=== PATIENT | female | born 1990 | race Caucasian/White ===

== ENCOUNTER 2016-12-24 09:34 | Emergency (ER) | payer OTHER ==
[2016-12-24 09:56] VITALS: BP 114/72
[2016-12-24] MEDS ORDERED: IBUPROFEN 600 MG TAB PO STA (10:22)
--- NOTE | 2016-12-24 11:14 | ED ---
General Adult HPI - General Chief complaint: ENT Stated complaint: ENT Time Seen by Provider: 12/24/16 10:08 Source: patient, RN notes reviewed Mode of arrival: ambulatory Limitations: no limitations - History of Present Illness Initial comments: Patient 26-year-old female who presents emergency room today with a chief complaint of sore throat 2 weeks. Patient admits to increased pain in the left side. States hurts when she swallows. Patient denies any other complaints or associated symptoms. Patient denies any recent fever, chills, shortness of breath, chest pain, back pain, abdominal pain, nausea or vomiting, numbness or tingling, dysuria or hematuria, constipation or diarrhea, headaches or visual changes, or any other complaints. - Related Data Previous Rx's Medication Instructions Recorded Amoxicillin 500 mg PO Q8H 10 Days 12/24/16 predniSONE 40 mg PO DAILY 3 Days 12/24/16 Allergies Allergy/AdvReac Type Severity Reaction Status Date / Time Sulfa (Sulfonamide Allergy Anaphylaxis Verified 12/24/16 10:13 Antibiotics) Review of Systems ROS Statement: Those systems with pertinent positive or pertinent negative responses have been documented in the HPI. ROS Other: All systems not noted in ROS Statement are negative. Past Medical History Past Medical History: Osteoarthritis (OA), Seizure Disorder, Skin Disorder Additional Past Medical History / Comment(s): States hx. heart murmur. She also states that she had a head injury at age 11. States she had a staph infection 5 months ago in her R armpit. She states she has had 4 seizures since age 15 -never evaluated. Has intermittent chest pain @ times but has not been evaluated. History of Any Multi-Drug Resistant Organisms: None Reported Past Surgical History: No Surgical Hx Reported Additional Past Surgical History / Comment(s): She has 4 children by natural childbirth. Past Anesthesia/Blood Transfusion Reactions: No Reported Reaction Past Psychological History: No Psychological Hx Reported Smoking Status: Current every day smoker Past Alcohol Use History: None Reported Past Drug Use History: None Reported - Past Family History Mother Family Medical History: No Reported History Additional Family Medical History / Comment(s): Mat. grandfather & 2 cousins dx. with hemophilia. General Exam - General Exam Comments Initial Comments: General: The patient is awake and alert, in no distress, and does not appear acutely ill. Eye: Pupils are equal, round and reactive to light, extra-ocular movements are intact. No nystagmus. There is normal conjunctiva bilaterally. No signs of icterus. Ears, nose, mouth and throat: There are moist mucous membranes and no oral lesions. Uvula midline. Mild redness the posterior pharynx a positive exudate left. Left hand decreased for landmarks consistent with otitis media. Neck: The neck is supple, there is no tenderness or JVD. Cardiovascular: There is a regular rate and rhythm. No murmur, rub or gallop is appreciated. Respiratory: Lungs are clear to auscultation, respirations are non-labored, breath sounds are equal. No wheezes, stridor, rales, or rhonchi. Gastrointestinal: Soft, non-distended, non-tender abdomen without masses or organomegaly noted. There is no rebound or guarding present. No CVA tenderness. Bowel sounds are unremarkable. Musculoskeletal: Normal ROM, no tenderness. Strength 5/5. Sensation intact. Pulses equal bilaterally 2+. Neurological: A&O x 3. CN II-XII intact, There are no obvious motor or sensory deficits. Coordination appears grossly intact. Speech is normal. Skin: Skin is warm and dry and no rashes or lesions are noted. Psychiatric: Cooperative, appropriate mood & affect, normal judgment. Limitations: no limitations Course Vital Signs 12/24/16 09:53 Temperature 98.6 F Pulse Rate 82 Respiratory 20 Rate Blood Pressure 114/72 O2 Sat by Pulse 98 Oximetry Medical Decision Making - Medical Decision Making A strep test negative. Does have evidence for acute otitis media. Will be started on antibiotics of amoxicillin. Patient also given steroid for the next 3 days for symptoms. Advised to follow-up or return here to emergency room if any symptoms increase or worsen or for any other concerns. - Lab Data Lab Results 12/24/16 Range/Units 10:04 Group A Strep Rapid Negative (Negative) Disposition Clinical Impression: Acute otitis media Disposition: HOME SELF-CARE Condition: Good Instructions: Otitis Media (ED) Additional Instructions: Please use medication as discussed. Please follow-up with family doctor in the next 2 days of symptoms have not improved. Please return to emergency room if the symptoms increase or worsen or for any other concerns. Prescriptions: Amoxicillin 500 mg PO Q8H 10 Days predniSONE 40 mg PO DAILY 3 Days Referrals: None,Stated [Primary Care Provider] - 1-2 days Stephanie Chase MD [STAFF PHYSICIAN] - 1-2 days Time of Disposition: 11:11
[2016-12-24 11:19] VITALS: PULSE 78; RESP 18; TEMP 98.4
== END 2016-12-24 11:19 | disposition home or self-care (01) ==
LOC: EC 09:34
DX: H66.92 Otitis media, unspecified, left ear (principal); F17.200 Nicotine dependence, unspecified, uncomplicated; Z88.2 Allergy status to sulfonamides
CPT/HCPCS: 87081; 87430; 99283

== ENCOUNTER → 2017-07-07 | Outpatient (CLI) | payer OTHER ==
[2017-07-07 16:44] LABS: Basophils # (A) 0.1 k/uL (0-0.2); Basophils % (A) 1 %; CH 31.3; CHCM 32.3; Eosinophils # (A) 0.3 k/uL (0-0.7); Eosinophils % (A) 3 %; HCT 45.7 % (34.0-46.0); HDW 2.09; HGB 14.9 gm/dL (11.4-16.0); Luc # (Auto) 0.18; Luc % (Auto) 2; Lymphocytes # (A) 2.1 k/uL (1.0-4.8); Lymphocytes % (A) 23 %; MCH 31.7 pg (25.0-35.0); MCHC 32.5 g/dL (31.0-37.0); MCV 97.4 fL (80.0-100.0); Mean Platelet Volume 6.9; Monocytes # (A) 0.6 k/uL (0-1.0); Monocytes % (A) 7 %; Neutrophils # (A) 5.7 k/uL (1.3-7.7); Neutrophils % (A) 64 %; RBC 4.69 m/uL (3.80-5.40); RDW 12.6 % (11.5-15.5); WBC 8.9 k/uL (3.8-10.6); WBC (Perox) 9.47
== END | disposition home or self-care (01) ==
LOC: LABPAT 16:12
PROVIDERS: ATTEND Obstetrics & Gynecology
DX: Z01.818 Encounter for other preprocedural examination (principal)
CPT/HCPCS: 36415; 85025

== ENCOUNTER 2018-01-13 00:58 | Emergency (ER) | payer OTHER ==
[2018-01-13 01:16] VITALS: RESP 16
[2018-01-13] MEDS ORDERED: ONDANSETRON ODT 4 MG TAB PO STA (01:58)
--- NOTE | 2018-01-13 02:18 | ED ---
Head Injury HPI - General Chief complaint: Head Injury Stated complaint: Head Injury, [facility] Time Seen by Provider: 01/13/18 01:41 Source: patient, RN notes reviewed Mode of arrival: ambulatory Limitations: no limitations - History of Present Illness Initial comments: 27-year-old female presented department for head injury. Patient states that she was at work and states that she bent down to grab something out of the freezer and move it up to the other one and states that she hit her head. She states she struck the right side of her head she felt slightly dazed and she just feels nauseated this time. Patient does note that she's become very anxious which is causing tingling all over her body. Patient states that she did not lose consciousness. Denies any chance . Denies neck pain, focal weakness, blurred vision. - Related Data Home Medications Medication Instructions Recorded Confirmed Otc For Upset Stomach 1 tab PO DAILY PRN 07/14/17 Previous Rx's Medication Instructions Recorded Acetaminophen-Codeine 300-30mg 1 - 2 tab PO Q4H PRN #30 tablet 07/14/17 [Tylenol #3] Ibuprofen [Motrin] 600 mg PO Q6HR PRN #40 tab 07/14/17 Amoxicillin/Potassium Clav 1 tab PO Q12HR #20 tab 01/13/18 [Augmentin 875-125 Tablet] Allergies/Adverse reactions: Allergies Allergy/AdvReac Type Severity Reaction Status Date / Time Sulfa (Sulfonamide Allergy Anaphylaxis Verified 01/13/18 01:15 Antibiotics) Review of Systems ROS Statement: Those systems with pertinent positive or pertinent negative responses have been documented in the HPI. ROS Other: All systems not noted in ROS Statement are negative. Past Medical History Past Medical History: Osteoarthritis (OA), Seizure Disorder Additional Past Medical History / Comment(s): States hx. heart murmur, head injury at age 11. She states she has had 4 seizures since age 15 -never evaluated. Has intermittent chest pain @ times but has not been evaluated denies sx currently, varicose veins History of Any Multi-Drug Resistant Organisms: MRSA Date of last positivie culture/infection: 2003 MDRO Source:: left breast Past Surgical History: Cholecystectomy Additional Past Surgical History / Comment(s): She has 4 children by natural childbirth. Past Anesthesia/Blood Transfusion Reactions: No Reported Reaction Past Psychological History: Anxiety Smoking Status: Current every day smoker Past Alcohol Use History: None Reported Past Drug Use History: None Reported - Past Family History Mother Family Medical History: No Reported History Additional Family Medical History / Comment(s): Mat. grandfather & 2 cousins dx. with hemophilia. General Exam Limitations: no limitations General appearance: alert, in no apparent distress Head exam: Present: atraumatic, normocephalic, normal inspection Eye exam: Present: normal appearance, PERRL, EOMI. Absent: scleral icterus, conjunctival injection, periorbital swelling ENT exam: Present: normal exam, normal oropharynx, mucous membranes moist, TM's normal bilaterally, normal external ear exam Neck exam: Present: normal inspection, full ROM. Absent: tenderness, meningismus, lymphadenopathy Respiratory exam: Present: normal lung sounds bilaterally. Absent: respiratory distress, wheezes, rales, rhonchi, stridor Cardiovascular Exam: Present: regular rate, normal rhythm, normal heart sounds. Absent: systolic murmur, diastolic murmur, rubs, gallop, clicks GI/Abdominal exam: Present: soft, normal bowel sounds. Absent: distended, tenderness, guarding, rebound, rigid Extremities exam: Present: normal inspection, full ROM, normal capillary refill. Absent: tenderness, pedal edema, joint swelling, calf tenderness Neurological exam: Present: alert, oriented X3, CN II-XII intact, reflexes normal, other (Xficie-ke-dmyt intact bilaterally without overshooting). Absent : motor sensory deficit Skin exam: Present: warm, dry, intact, normal color. Absent: rash Course Vital Signs 01/13/18 01:11 Temperature 99 F Pulse Rate 90 Respiratory 16 Rate Blood Pressure 137/78 O2 Sat by Pulse 100 Oximetry Medical Decision Making - Medical Decision Making 19-year-old female presented from for head injury. CT of the brain does not show any intracranial hemorrhage, mass effect or any lesions. There is some degree of mastoiditis. Patient does complain of mild left mastoid pain. She' ll be placed on a course antibiotics and follow-up with ENT and Workmen's Comp. Return parameters were discussed. Disposition Clinical Impression: Head injury, Mastoiditis Disposition: HOME SELF-CARE Condition: Stable Instructions: Concussion (ED) Additional Instructions: Please return to the Emergency Department if symptoms worsen or any other concerns. Prescriptions: Amoxicillin/Potassium Clav [Augmentin 875-125 Tablet] 1 tab PO Q12HR #20 tab Referrals: None,Stated [Primary Care Provider] - 1-2 days Wilberto Patel DO [Doctor of Osteopathic Medicine] - 1-2 days Time of Disposition: 02:36
--- NOTE | 2018-01-13 02:27 | CT ---
EXAMINATION TYPE: CT brain wo con DATE OF EXAM: 01/13/2018 COMPARISON: NONE HISTORY: Right sided head injury headache CT DLP: 1126.50 mGycm. Automated Exposure Control for Dose Reduction was Utilized. TECHNIQUE: CT scan of the head is performed without contrast. FINDINGS: Ventricles and sulci appear normal. There is no mass effect nor midline shift. There is no sign of intracranial hemorrhage. The calvarium appears normal. CONCLUSION: Negative CT scan of the brain. Incomplete pneumatization of the mastoid sinuses consistent with some degree of mastoiditis.
[2018-01-13 02:49] VITALS: BP 128/75; PULSE 93; TEMP 97.5
== END 2018-01-13 02:50 | disposition home or self-care (01) ==
LOC: EC 00:58
DX: S09.90XA Unspecified injury of head, initial encounter (principal); H70.92 Unspecified mastoiditis, left ear; F17.200 Nicotine dependence, unspecified, uncomplicated; Z88.2 Allergy status to sulfonamides; Z86.14 Personal history of Methicillin resistant Staphylococcus aureus infection; Z02.9 Encounter for administrative examinations, unspecified; W22.09XA Striking against other stationary object, initial encounter; Y93.89 Activity, other specified; Y92.69 Other specified industrial and construction area as the place of occurrence of the external cause
CPT/HCPCS: 70450; 99283

== ENCOUNTER → 2018-01-14 | Outpatient (CLI) | payer OTHER ==
--- NOTE | 2018-01-14 15:01 | XR ---
EXAMINATION TYPE: XR cervical spine comp DATE OF EXAM: 01/14/2018 COMPARISON: NONE HISTORY: Fall hit head TECHNIQUE: Five-view cervical spine FINDINGS: Prevertebral space is normal. Disc heights are preserved. Vertebral body heights are preser adis. Alignment is normal. Posterior spinal lamellar line is intact. Foramen are patent. IMPRESSION: 1. Normal cervical spine.
== END | disposition home or self-care (01) ==
LOC: RADXRMAIN 14:28
PROVIDERS: ATTEND Emergency Medicine
DX: S13.4XXA Sprain of ligaments of cervical spine, initial encounter (principal)
CPT/HCPCS: 72050

== ENCOUNTER → 2018-01-19 | Outpatient (CLI) | payer OTHER ==
--- NOTE | 2018-01-19 16:48 | CT ---
EXAMINATION TYPE: CT brain cspine wo con DATE OF EXAM: 01/19/2018 COMPARISON: CT brain January 13, 2018 HISTORY: New onset left-sided Headache and neck pain after injury. CT DLP: 1006 mGycm. Automated Exposure Control for Dose Reduction was Utilized. TECHNIQUE: CT scan of the head and cervical spine are performed without contrast. FINDINGS: There is no acute intracranial hemorrhage, mass effect, or midline shift identified. The ventricles and sulci are within normal limits in size. Davis-white matter differentiation is maintain ed. There is persistent moderate to severe mucosal thickening in the right frontal sinus extending in to anterior ethmoid sinus. The calvarium is intact. Cervical spine is visualized in its entirety from C1 through upper thoracic levels and demonstrates r eversal of normal cervical curvature without evidence of acute fracture or dislocation. Prevertebral soft tissue appears within normal limits. The C1-C2 articulation is within normal limits on the cor onal images. Vertebral body heights and disc space heights are maintained. Spinal canal is preserved. Review of axial images shows no suspicious abnormality. Thyroid gland is felt within normal limits. Lung apices are clear. IMPRESSION: 1. There is no acute fracture or dislocation evident in the cervical spine. 2. No acute intracranial hemorrhage, mass effect, or midline shift is seen.
--- NOTE | 2018-01-19 16:49 | XR ---
EXAMINATION TYPE: XR thoracic spine complete DATE OF EXAM: 01/19/2018 CLINICAL HISTORY: Pain after injury. TECHNIQUE: Frontal, lateral, and swimmer's view of thoracic spine are obtained. COMPARISON: None. FINDINGS: Thoracic spine show slightly straightened alignment without evidence of acute fracture or d islocation. Vertebral body heights and disc space heights are preserved. Visualized ribs are unremar kable bilaterally. Cholecystectomy clips are noted. IMPRESSION: No acute fracture or dislocation is seen in the thoracic spine.
== END | disposition home or self-care (01) ==
LOC: RADCTMAIN 16:13
PROVIDERS: ATTEND Emergency Medicine
DX: M54.6 Pain in thoracic spine (principal); S13.4XXD Sprain of ligaments of cervical spine, subsequent encounter; S00.83XD Contusion of other part of head, subsequent encounter; F07.81 Postconcussional syndrome
CPT/HCPCS: 70450; 72072; 72125

== ENCOUNTER 2018-05-02 00:04 | Emergency (ER) | payer OTHER ==
--- NOTE | 2018-05-02 03:00 | CT ---
EXAMINATION TYPE: CT sinus wo con DATE OF EXAM: 05/02/2018 COMPARISON: None HISTORY: pt c/o bilateral ear and jaw pain for a few months CT DLP: 487.30 mGycm. Automated Exposure Control for Dose Reduction was Utilized. TECHNIQUE: CT scan of the sinuses is performed without contrast, axial images are obtained, coronal r eformatted images are also reviewed. FINDINGS: There is bilateral patency of the ostiomeatal complex. There is fairly normal development a nd aeration of the paranasal sinuses. I see no bony destructive process. Orbital margins are intact. Maxilla appears intact. The temporal bone show incomplete pneumatization. There is normal aeration of the epitympanic recess bilaterally. Orbital margins are intact. Maxilla is intact. IMPRESSION: Negative CT scan of the paranasal sinuses. Normal temporomandibular joints.
[2018-05-02] MEDS ORDERED: IBUPROFEN 600 MG TAB PO STA (03:35)
--- NOTE | 2018-05-02 03:39 | ED ---
ENT HPI - General Chief complaint: ENT Stated complaint: Ear Pain/Headache Time Seen by Provider: 05/02/18 01:15 Source: patient Mode of arrival: ambulatory Limitations: no limitations - History of Present Illness Initial comments: 28-year-old female patient presents to emergency department today for evaluation of bilateral jaw and ear pain. Patient states his been going on for the last couple of months over the pain now radiates into her face. Denies any drainage from the ears. Denies any recent swelling. Patient denies any fevers or chills. Denies any nasal congestion or drainage. She denies any blurred or double vision. Denies any headache. Denies any dental caries or dental pain. Denies any upper respiratory symptoms. Denies any chance of . They set she believes she has had frequent ear infections however has never been to the doctor to get it evaluated. Did have ear infections as a child. - Related Data Home Medications Medication Instructions Recorded Confirmed Otc For Upset Stomach 1 tab PO DAILY PRN 07/14/17 Previous Rx's Medication Instructions Recorded Acetaminophen-Codeine 300-30mg 1 - 2 tab PO Q4H PRN #30 tablet 07/14/17 [Tylenol #3] Ibuprofen [Motrin] 600 mg PO Q6HR PRN #40 tab 07/14/17 Amoxicillin/Potassium Clav 1 tab PO Q12HR #20 tab 01/13/18 [Augmentin 875-125 Tablet] Ibuprofen [Motrin] 600 mg PO Q8HR PRN #30 tab 05/02/18 Allergies Allergy/AdvReac Type Severity Reaction Status Date / Time Sulfa (Sulfonamide Allergy Anaphylaxis Verified 05/02/18 00:42 Antibiotics) Review of Systems ROS Statement: Those systems with pertinent positive or pertinent negative responses have been documented in the HPI. ROS Other: All systems not noted in ROS Statement are negative. Past Medical History Past Medical History: Osteoarthritis (OA), Seizure Disorder Additional Past Medical History / Comment(s): States hx. heart murmur, head injury at age 11. She states she has had 4 seizures since age 15 -never evaluated. Has intermittent chest pain @ times but has not been evaluated denies sx currently, varicose veins History of Any Multi-Drug Resistant Organisms: MRSA Date of last positivie culture/infection: 2003 MDRO Source:: left breast Past Surgical History: Cholecystectomy, Tubal Ligation Additional Past Surgical History / Comment(s): She has 4 children by natural childbirth. Past Anesthesia/Blood Transfusion Reactions: No Reported Reaction Past Psychological History: Anxiety Smoking Status: Current every day smoker Past Alcohol Use History: None Reported Past Drug Use History: None Reported - Past Family History Mother Family Medical History: No Reported History Additional Family Medical History / Comment(s): Mat. grandfather & 2 cousins dx. with hemophilia. General Exam Limitations: no limitations General appearance: alert, in no apparent distress, other (So well-developed, well-nourished adult female patient in no acute distress. Vital signs upon presentation are temperature 98.6F, pulse 76, respirations 18, blood pressure 134/83, pulse ox 100% on room air.) Eye exam: Present: normal appearance, PERRL, EOMI. Absent: scleral icterus, conjunctival injection, periorbital swelling ENT exam: Present: normal exam, normal oropharynx, mucous membranes moist, TM's normal bilaterally, normal external ear exam, other (Mastoid tenderness) Neck exam: Present: normal inspection. Absent: tenderness, meningismus, lymphadenopathy Respiratory exam: Present: normal lung sounds bilaterally. Absent: respiratory distress, wheezes, rales, rhonchi, stridor Cardiovascular Exam: Present: regular rate, normal rhythm, normal heart sounds. Absent: systolic murmur, diastolic murmur, rubs, gallop, clicks GI/Abdominal exam: Present: soft, normal bowel sounds. Absent: distended, tenderness, guarding, rebound, rigid Neurological exam: Present: alert, oriented X3, CN II-XII intact Psychiatric exam: Present: normal affect, normal mood Skin exam: Present: warm, dry, intact, normal color. Absent: rash Course Vital Signs 05/02/18 05/02/18 00:35 03:50 Temperature 98.6 F 98.2 F Pulse Rate 76 78 Respiratory 18 20 Rate Blood Pressure 134/83 135/78 O2 Sat by Pulse 100 98 Oximetry Medical Decision Making - Medical Decision Making 28-year-old female patient presented to the emergency department today for evaluation of bilateral jaw and ear pain. Physical examination did reveal mastoid tenderness. Tympanic membranes appear normal. Patient is afebrile. Computed tomography scan of the sinuses and mastoids showed no acute processes. Patient is given ibuprofen. She was informed of all results. She is instructed to follow-up with her primary care physician for possible referral to oral surgery or ENT. Return parameters discussed in detail. She verbalizes understanding and agrees this plan. - Radiology Data Radiology results: report reviewed Computed tomography scan of the sinuses performed without contrast. Report was reviewed in its entirety. Impression by Dr. Ortiz shows negative computed tomography scan of the paranasal sinuses. Normal temporomandibular joints. Did discuss findings with Dr. Ortiz, he states there is no evidence of mastoiditis. Disposition Clinical Impression: Jaw pain Disposition: HOME SELF-CARE Condition: Good Instructions: Temporomandibular Disorder (ED) Additional Instructions: Obtain a mouth guard from the store and use this while sleeping. Follow-up with your primary care physician for further evaluation. Return to return here immediately for any new, worsening, or concerning symptoms. Prescriptions: Ibuprofen [Motrin] 600 mg PO Q8HR PRN #30 tab PRN Reason: Pain Is patient prescribed a controlled substance at d/c from ED?: No Referrals: None,Stated [Primary Care Provider] - 1-2 days Time of Disposition: 03:39
[2018-05-02 03:51] VITALS: BP 135/78; PULSE 78; RESP 20; TEMP 98.2
== END 2018-05-02 03:51 | disposition home or self-care (01) ==
LOC: EC 00:04
DX: R68.84 Jaw pain (principal); H92.03 Otalgia, bilateral; F17.200 Nicotine dependence, unspecified, uncomplicated; Z86.14 Personal history of Methicillin resistant Staphylococcus aureus infection; Z88.2 Allergy status to sulfonamides
CPT/HCPCS: 70486; 99283

== ENCOUNTER → 2018-05-14 | Outpatient (CLI) | payer OTHER ==
--- NOTE | 2018-05-16 10:45 | USB ---
Reason for exam: clinical finding. History: Family history of breast cancer in grandmother and breast cancer in aunt. Took hormonal contraceptives for 9 years beginning at age 13. Physical Findings: Nurse did not find any significant physical abnormalities on exam. US Breast BILAT Bilateral complete breast ultrasound includes all four quadrants, the retroareolar region and axilla. Finding demonstrates no cystic or solid lesion seen in either breast. These results were verbally communicated with the patient and result sheet given to the patient on 05/14/18. ASSESSMENT: Negative, BI-RAD 1 RECOMMENDATION: Clinical management.
== END | disposition home or self-care (01) ==
LOC: RADUSWWP 14:17
PROVIDERS: ATTEND Obstetrics & Gynecology
DX: N64.4 Mastodynia (principal); N64.52 Nipple discharge

== ENCOUNTER 2018-07-23 02:10 | Emergency (ER) | payer OTHER ==
[2018-07-23 02:15] VITALS: TEMP 98.4
[2018-07-23] MEDS ORDERED: SODIUM CHLORIDE 0.9% 1,000 ML IV STA (02:49)
[2018-07-23 03:33] LABS: Basophils # (A) 0.1 k/uL (0-0.2); Basophils % (A) 1 %; Eosinophils # (A) 0.2 k/uL (0-0.7); Eosinophils % (A) 3 %; HCT 45.1 % (34.0-46.0); HGB 15.2 gm/dL (11.4-16.0); Lymphocytes # (A) 1.1 k/uL (1.0-4.8); Lymphocytes % (A) 13 %; MCH 31.3 pg (25.0-35.0); MCHC 33.6 g/dL (31.0-37.0); MCV 93.3 fL (80.0-100.0); Mean Platelet Volume 6.7; Monocytes # (A) 0.5 k/uL (0-1.0); Monocytes % (A) 6 %; Neutrophils # (A) 5.9 k/uL (1.3-7.7); Neutrophils % (A) 75 %; Platelet Count 198 k/uL (150-450); RBC 4.84 m/uL (3.80-5.40); RDW 12.4 % (11.5-15.5); WBC 7.8 k/uL (3.8-10.6)
[2018-07-23 03:42] LABS: Appearance,Urine Clear (Clear); Bacteria,Urine Rare /hpf; Bilirubin,Urine Negative (Negative); Blood,Urine Moderate (Negative); Color,Urine Yellow; Glucose,Urine (UA) Negative (Negative); Ketones,Urine Negative (Negative); Leukocyte Esterase,Urine Small (Negative); Mucus,Urine Rare /hpf; Nitrite,Urine Negative (Negative); Protein,Urine Negative (Negative); RBC,Urine 14 /hpf (0-5); Squamous Epithelial Cell,Urine 2 /hpf (0-4); Urobilinogen,Urine <2.0 mg/dL (<2.0); WBC,Urine 11 /hpf (0-5)
[2018-07-23 03:48] LABS: Albumin 4.4 g/dL (3.5-5.0); Calcium 9.5 mg/dL (8.4-10.2); Potassium 3.2 mmol/L (3.5-5.1); Total Bilirubin 0.4 mg/dL (0.2-1.3); Total Protein 7.9 g/dL (6.3-8.2)
--- NOTE | 2018-07-23 04:05 | ED ---
Abdominal Pain HPI - General Chief Complaint: Abdominal Pain Stated Complaint: abd pain Time Seen by Provider: 07/23/18 02:23 Source: patient Mode of arrival: ambulatory Limitations: no limitations - History of Present Illness MD Complaint: abdominal pain -: days(s) Location: epigastric Radiation: none Migration to: no migration Quality: aching Consistency: constant Improves With: nothing Worsens With: eating - Related Data Home Medications Medication Instructions Recorded Confirmed Otc For Upset Stomach 1 tab PO DAILY PRN 07/14/17 Previous Rx's Medication Instructions Recorded Acetaminophen-Codeine 300-30mg 1 - 2 tab PO Q4H PRN #30 tablet 07/14/17 [Tylenol #3] Ibuprofen [Motrin] 600 mg PO Q6HR PRN #40 tab 07/14/17 Amoxicillin/Potassium Clav 1 tab PO Q12HR #20 tab 01/13/18 [Augmentin 875-125 Tablet] Ibuprofen [Motrin] 600 mg PO Q8HR PRN #30 tab 05/02/18 Allergies Allergy/AdvReac Type Severity Reaction Status Date / Time Sulfa (Sulfonamide Allergy Anaphylaxis Verified 07/23/18 02:15 Antibiotics) Review of Systems ROS Statement: Those systems with pertinent positive or pertinent negative responses have been documented in the HPI. ROS Other: All systems not noted in ROS Statement are negative. Constitutional: Denies: fever, chills Respiratory: Denies: cough, dyspnea Cardiovascular: Denies: chest pain, palpitations Gastrointestinal: Reports: as per HPI, abdominal pain, nausea. Denies: vomiting , diarrhea, constipation, melena, hematochezia Genitourinary: Denies: dysuria, hematuria Musculoskeletal: Denies: back pain Skin: Denies: rash Neurological: Denies: headache, weakness, numbness Past Medical History Past Medical History: Osteoarthritis (OA), Seizure Disorder Additional Past Medical History / Comment(s): States hx. heart murmur, head injury at age 11. She states she has had 4 seizures since age 15 -never evaluated. Has intermittent chest pain @ times but has not been evaluated denies sx currently, varicose veins History of Any Multi-Drug Resistant Organisms: MRSA Date of last positivie culture/infection: 2003 MDRO Source:: left breast Past Surgical History: Cholecystectomy, Tubal Ligation Additional Past Surgical History / Comment(s): She has 4 children by natural childbirth. Past Anesthesia/Blood Transfusion Reactions: No Reported Reaction Past Psychological History: Anxiety, Depression Smoking Status: Current every day smoker Past Alcohol Use History: None Reported Past Drug Use History: None Reported - Past Family History Mother Family Medical History: No Reported History Additional Family Medical History / Comment(s): Mat. grandfather & 2 cousins dx. with hemophilia. General Exam Limitations: no limitations General appearance: alert, in no apparent distress Head exam: Present: atraumatic, normocephalic Eye exam: Present: normal appearance. Absent: scleral icterus, conjunctival injection ENT exam: Present: normal oropharynx Neck exam: Present: normal inspection Respiratory exam: Present: normal lung sounds bilaterally. Absent: respiratory distress, wheezes, rales, rhonchi, stridor Cardiovascular Exam: Present: regular rate, normal rhythm, normal heart sounds. Absent: systolic murmur, diastolic murmur, rubs, gallop GI/Abdominal exam: Present: soft, normal bowel sounds. Absent: distended, tenderness, guarding, rebound, rigid, mass, hernia Extremities exam: Present: normal inspection, normal capillary refill. Absent: pedal edema, calf tenderness Back exam: Present: normal inspection. Absent: CVA tenderness (R), CVA tenderness (L) Neurological exam: Present: alert Skin exam: Present: warm, dry, intact, normal color. Absent: rash Course Vital Signs 07/23/18 07/23/18 02:11 04:12 Temperature 98.4 F 98.4 F Pulse Rate 111 H 85 Respiratory 20 16 Rate Blood Pressure 148/93 139/87 O2 Sat by Pulse 99 Oximetry Medical Decision Making - Lab Data Result diagrams: 07/23/18 03:06 07/23/18 03:06 Lab Results 07/23/18 07/23/18 07/23/18 Range/Units 03:06 03:06 03:06 WBC 7.8 (3.8-10.6) k/uL RBC 4.84 (3.80-5.40) m/uL Hgb 15.2 (11.4-16.0) gm/dL Hct 45.1 (34.0-46.0) % MCV 93.3 (80.0-100.0) fL MCH 31.3 (25.0-35.0) pg MCHC 33.6 (31.0-37.0) g/dL RDW 12.4 (11.5-15.5) % Plt Count 198 (150-450) k/uL Neutrophils % 75 % Lymphocytes % 13 % Monocytes % 6 % Eosinophils % 3 % Basophils % 1 % Neutrophils # 5.9 (1.3-7.7) k/uL Lymphocytes # 1.1 (1.0-4.8) k/uL Monocytes # 0.5 (0-1.0) k/uL Eosinophils # 0.2 (0-0.7) k/uL Basophils # 0.1 (0-0.2) k/uL Sodium 137 (137-145) mmol/L Potassium 3.2 L (3.5-5.1) mmol/L Chloride 95 L (98-107) mmol/L Carbon Dioxide 33 H (22-30) mmol/L Anion Gap 9 mmol/L BUN 18 H (7-17) mg/dL Creatinine 0.99 (0.52-1.04) mg/dL Est GFR (CKD-EPI)AfAm 89 (>60 ml/min/1.73 sqM) Est GFR (CKD-EPI)NonAf 78 (>60 ml/min/1.73 sqM) Glucose 95 (74-99) mg/dL Calcium 9.5 (8.4-10.2) mg/dL Total Bilirubin 0.4 (0.2-1.3) mg/dL AST 27 (14-36) U/L ALT 30 (9-52) U/L Alkaline Phosphatase 90 (38-126) U/L Total Protein 7.9 (6.3-8.2) g/dL Albumin 4.4 (3.5-5.0) g/dL Amylase 69 (30-110) U/L Lipase 105 (23-300) U/L Urine Color Yellow Urine Appearance Clear (Clear) Urine pH 6.0 (5.0-8.0) Ur Specific [place] 1.010 (1.001-1.035) Urine Protein Negative (Negative) Urine Glucose (UA) Negative (Negative) Urine Ketones Negative (Negative) Urine Blood Moderate H (Negative) Urine Nitrite Negative (Negative) Urine Bilirubin Negative (Negative) Urine Urobilinogen <2.0 (<2.0) mg/dL Ur Leukocyte Esterase Small H (Negative) Urine RBC 14 H (0-5) /hpf Urine WBC 11 H (0-5) /hpf Ur Squamous Epith Cells 2 (0-4) /hpf Urine Bacteria Rare H (None) /hpf Urine Mucus Rare H (None) /hpf Disposition Clinical Impression: Abdominal pain Disposition: HOME SELF-CARE Condition: Good Instructions: Abdominal Pain (ED) Is patient prescribed a controlled substance at d/c from ED?: No Referrals: Donn Pham MD [Primary Care Provider] - 1-2 days Ramesh Javed MD [STAFF PHYSICIAN] - 1-2 days
[2018-07-23 04:24] VITALS: BP 139/87; PULSE 85; RESP 16
== END 2018-07-23 04:12 | disposition home or self-care (01) ==
LOC: EC 02:10
DX: R10.13 Epigastric pain (principal); F17.200 Nicotine dependence, unspecified, uncomplicated; Z86.14 Personal history of Methicillin resistant Staphylococcus aureus infection; Z88.2 Allergy status to sulfonamides; Z90.49 Acquired absence of other specified parts of digestive tract
CPT/HCPCS: 36415; 80053; 81001; 82150; 83690; 85025; 87086; 96360; 99284

== ENCOUNTER → 2018-08-12 | Outpatient (CLI) | payer OTHER ==
--- NOTE | 2018-08-12 09:41 | FL ---
EXAMINATION TYPE: FL UGI air DATE OF EXAM: 08/12/2018 9:26 AM COMPARISON: NONE CLINICAL HISTORY: Abdominal pain Preliminary view of the abdomen reveals a normal bowel gas pattern. Mild degenerative changes are not ed of the thoracolumbar spine. Upper GI examination was performed according to the air contrast technique. Barium and effervescent crystal was swallowed without difficulty or delay. Esophageal peristalsis and motility are within no rmal limits. There is no evidence for esophagitis, intraluminal mass, hiatal hernia or gastroesophag eal reflux. The stomach has a normal appearance in terms of its size, shape and location. No gastri c filling defects or ulcer craters are seen. The duodenal bulb and sweep are also free of intralumin al lesion or ulcer crater. Duodenal folds are prominent which may reflect underlying duodenitis. IMPRESSION: Correlate for duodenitis. No distinct ulcer identified at this time.
== END | disposition home or self-care (01) ==
LOC: RADFLWHC 08:41
PROVIDERS: ATTEND Family Medicine
DX: R10.84 Generalized abdominal pain (principal); Z88.2 Allergy status to sulfonamides
CPT/HCPCS: 74246

== ENCOUNTER 2018-12-20 01:49 | Emergency (ER) | payer OTHER ==
[2018-12-20 01:56] VITALS: TEMP 99.7
[2018-12-20] MEDS ORDERED: ACETAMINOPHEN TAB 325 MG TAB PO STA (02:29)
[2018-12-20] MEDS ORDERED: IBUPROFEN 600 MG TAB PO STA (02:29)
[2018-12-20] MEDS ORDERED: guaiFENesin-DM 600/30MG 1 EACH TAB.ER.12H PO STA (02:29)
--- NOTE | 2018-12-20 03:28 | XR ---
EXAM: XR Chest, 2 Views CLINICAL HISTORY: ITS.REASON XR Reason: Pain TECHNIQUE: Frontal and lateral views of the chest. COMPARISON: No relevant prior studies available. FINDINGS: Lungs: Mild perihilar opacities. No consolidation. Pleural space: No significant pleural effusion or pneumothorax. Heart: Unremarkable. Mediastinum: Unremarkable. Bones/joints: No acute fracture. IMPRESSION: Mild perihilar opacities. No consolidation.
--- NOTE | 2018-12-20 03:33 | ED ---
URI HPI - General Chief Complaint: Upper Respiratory Infection Stated Complaint: Chest,Neck,Body Pain Time Seen by Provider: 12/20/18 02:04 Source: patient, family Mode of arrival: ambulatory Limitations: no limitations - History of Present Illness Initial Comments: 28-year-old female patient presents to the emergency department today for evaluation of body aches, cough, nasal congestion, and sore throat. Patient takes she's been sick for the last 2 days. States that tonight she started to feel worse that she thought she should come in for evaluation. She denies any sputum production with her cough. Denies any shortness of breath. States that when she is coughing she does have chest pain. She states that she has had fever and chills. She denies taking any medications for her symptoms. She does admit to being a smoker. Patient denies any recent rash, chest pain, abdominal pain, nausea, vomiting, diarrhea, constipation, back pain, numbness, tingling, dizziness, weakness, hematuria, dysuria, urinary urgency, urinary frequency, headache, visual changes, or any other complaints. - Related Data Home Medications Medication Instructions Recorded Confirmed Otc For Upset Stomach 1 tab PO DAILY PRN 07/14/17 Previous Rx's Medication Instructions Recorded Acetaminophen-Codeine 300-30mg 1 - 2 tab PO Q4H PRN #30 tablet 07/14/17 [Tylenol #3] Ibuprofen [Motrin] 600 mg PO Q6HR PRN #40 tab 07/14/17 Amoxicillin/Potassium Clav 1 tab PO Q12HR #20 tab 01/13/18 [Augmentin 875-125 Tablet] Ibuprofen [Motrin] 600 mg PO Q8HR PRN #30 tab 05/02/18 guaiFENesin-DM 600/30MG [Mucinex 1 each PO Q12HR #10 tab.er.12h 12/20/18 Dm] Allergies Allergy/AdvReac Type Severity Reaction Status Date / Time Sulfa (Sulfonamide Allergy Anaphylaxis Verified 12/20/18 01:56 Antibiotics) Review of Systems ROS Statement: Those systems with pertinent positive or pertinent negative responses have been documented in the HPI. ROS Other: All systems not noted in ROS Statement are negative. Past Medical History Past Medical History: Osteoarthritis (OA), Seizure Disorder Additional Past Medical History / Comment(s): States hx. heart murmur, head injury at age 11. She states she has had 4 seizures since age 15 -never evaluated. Has intermittent chest pain @ times but has not been evaluated denies sx currently, varicose veins History of Any Multi-Drug Resistant Organisms: MRSA Date of last positivie culture/infection: 2003 MDRO Source:: left breast Past Surgical History: Cholecystectomy, Tubal Ligation Additional Past Surgical History / Comment(s): She has 4 children by natural childbirth. Past Anesthesia/Blood Transfusion Reactions: No Reported Reaction Past Psychological History: Anxiety, Depression Smoking Status: Current every day smoker Past Alcohol Use History: None Reported Past Drug Use History: None Reported - Past Family History Mother Family Medical History: No Reported History Additional Family Medical History / Comment(s): Mat. grandfather & 2 cousins dx. with hemophilia. General Exam Limitations: no limitations General appearance: alert, in no apparent distress, other (Physical well- developed, well-nourished adult female patient in no acute distress. Vital signs upon presentation are temperature 99.7F, pulse 98, respirations 18, blood pressure 128/72, pulse ox 100% on room air.) Eye exam: Present: normal appearance, PERRL, EOMI. Absent: scleral icterus, conjunctival injection, periorbital swelling ENT exam: Present: mucous membranes moist, TM's normal bilaterally. Absent: normal exam, normal oropharynx (Pharyngeal erythema, no tonsillar hypertrophy or exudate noted.) Neck exam: Present: normal inspection, full ROM. Absent: tenderness, meningismus, lymphadenopathy Respiratory exam: Present: normal lung sounds bilaterally. Absent: respiratory distress, wheezes, rales, rhonchi, stridor Cardiovascular Exam: Present: regular rate, normal rhythm, normal heart sounds. Absent: systolic murmur, diastolic murmur, rubs, gallop, clicks GI/Abdominal exam: Present: soft, normal bowel sounds. Absent: distended, tenderness, guarding, rebound, rigid Neurological exam: Present: alert, oriented X3, CN II-XII intact Psychiatric exam: Present: normal affect, normal mood Skin exam: Present: warm, dry, intact, normal color. Absent: rash Course Vital Signs 12/20/18 12/20/18 01:53 03:45 Temperature 99.7 F H 99.7 F H Pulse Rate 98 87 Respiratory 18 19 Rate Blood Pressure 128/72 108/68 O2 Sat by Pulse 100 96 Oximetry Medical Decision Making - Medical Decision Making 28-year-old female patient presented to the emergency department today for evaluation of upper respiratory symptoms of body aches. Physical examination did reveal pharyngeal erythema. Lungs are clear to auscultation with good air movement. Influenza testing was negative. Chest x-ray showed no acute cardiopulmonary process. Patient symptoms are consistent with acute viral upper respiratory illness. We discussed supportive care and symptom management. She is instructed to follow-up with her primary care physician for recheck in 1-2 days. Return parameters were discussed in detail. She verbalizes understanding and agrees with this plan. - Lab Data Lab Results 12/20/18 Range/Units 01:59 Influenza Type A RNA Not Detected (Not Detectd) Influenza Type B (PCR) Not Detected (Not Detectd) - Radiology Data Radiology results: report reviewed, image reviewed Two-view x-ray of the chest is obtained. Report was reviewed in its entirety. Impression by Dr. Kim shows mild perihilar opacities. No consolidation. Disposition Clinical Impression: Viral upper respiratory infection Disposition: HOME SELF-CARE Condition: Good Instructions (If sedation given, give patient instructions): Upper Respiratory Infection (ED) Additional Instructions: Increase fluids. Rest. Take medications as directed. Take Tylenol and Motrin for pain and fever control. Return to the emergency department for any new, worsening, or concerning symptoms. Prescriptions: guaiFENesin-DM 600/30MG [Mucinex Dm] 1 each PO Q12HR #10 tab.er.12h Is patient prescribed a controlled substance at d/c from ED?: No Referrals: None,Stated [Primary Care Provider] - 1-2 days Time of Disposition: 03:33
[2018-12-20 03:47] VITALS: BP 108/68; PULSE 87; RESP 19
== END 2018-12-20 03:45 | disposition home or self-care (01) ==
LOC: EC 01:49
DX: J06.9 Acute upper respiratory infection, unspecified (principal); F17.200 Nicotine dependence, unspecified, uncomplicated; Z88.2 Allergy status to sulfonamides; Z86.14 Personal history of Methicillin resistant Staphylococcus aureus infection; Z98.51 Tubal ligation status
CPT/HCPCS: 71046; 87502; 99285

== ENCOUNTER 2019-01-13 21:30 | Emergency (ER) | payer OTHER ==
[2019-01-13 21:40] VITALS: BP 141/87; PULSE 82; RESP 18; TEMP 98
[2019-01-13 22:45] LABS: Appearance,Urine Turbid (Clear); Bacteria,Urine Rare /hpf; Bilirubin,Urine Negative (Negative); Blood,Urine Small (Negative); Color,Urine Yellow; Glucose,Urine (UA) Negative (Negative); Ketones,Urine Negative (Negative); Leukocyte Esterase,Urine Large (Negative); Mucus,Urine Occasional /hpf; Nitrite,Urine Positive (Negative); PH, Urine 5.5 (5.0-8.0); Protein,Urine Trace (Negative); RBC,Urine 27 /hpf (0-5); Specific Gravity,Urine 1.017 (1.001-1.035); Squamous Epithelial Cell,Urine 3 /hpf (0-4); Urobilinogen,Urine <2.0 mg/dL (<2.0)
[2019-01-13] MEDS ORDERED: PHENAZOPYRIDINE 100 MG TAB PO STA (23:20)
[2019-01-13] MEDS ORDERED: LEVOFLOXACIN 750 MG TAB PO STA (23:23)
--- NOTE | 2019-01-14 00:06 | ED ---
Female Urogenital HPI - General Chief complaint: Urogenital Stated complaint: Kidney Stones Time Seen by Provider: 01/13/19 22:05 Source: patient Mode of arrival: ambulatory Limitations: no limitations - History of Present Illness Initial comments: This patient is 28-year-old woman who presents to be evaluated for dysuria, suprapubic and low back discomfort. Patient states the symptoms have been going on for about 3 days. She states it initially started with low back discomfort more or less midline, and then she started having dysuria, urgency, and states that the symptoms did not go away when she finishes urinating. She states that she has not had fever or chills. No other abdominal pain. No nausea vomiting, or change in bowel movements. The patient denies any vaginal discharge. She states she does not believe there is a chance of sexually transmitted infection. MD Complaint: dysuria -: days(s) Radiation: suprapubic Severity: moderate Quality: cramping, aching Consistency: constant Improves with: none Worsens with: urination Patient : No Associated Symptoms: denies other symptoms - Related Data Home Medications Medication Instructions Recorded Confirmed Methenamine/Sodium Salicylate 2 tab PO TID PRN 01/13/19 01/13/19 [Cystex Tablet] Previous Rx's Medication Instructions Recorded Levofloxacin [Levaquin] 750 mg PO DAILY #7 tab 01/14/19 Allergies Allergy/AdvReac Type Severity Reaction Status Date / Time Sulfa (Sulfonamide Allergy Anaphylaxis Verified 01/13/19 22:01 Antibiotics) Review of Systems ROS Statement: Those systems with pertinent positive or pertinent negative responses have been documented in the HPI. ROS Other: All systems not noted in ROS Statement are negative. Constitutional: Denies: fever, chills, weakness Respiratory: Denies: cough, dyspnea Cardiovascular: Denies: chest pain, palpitations Gastrointestinal: Reports: as per HPI, abdominal pain. Denies: nausea, vomiting, diarrhea, constipation Genitourinary: Reports: as per HPI, urgency, dysuria, frequency, hematuria. Denies: discharge, abnormal menses Musculoskeletal: Reports: as per HPI, back pain Skin: Denies: rash Neurological: Denies: headache Past Medical History Past Medical History: Osteoarthritis (OA), Seizure Disorder Additional Past Medical History / Comment(s): States hx. heart murmur, head injury at age 11. She states she has had 4 seizures since age 15 -never evaluated. Has intermittent chest pain @ times but has not been evaluated denies sx currently, varicose veins History of Any Multi-Drug Resistant Organisms: MRSA Date of last positivie culture/infection: 2003 MDRO Source:: left breast Past Surgical History: Cholecystectomy, Tubal Ligation Additional Past Surgical History / Comment(s): She has 4 children by natural childbirth. Past Anesthesia/Blood Transfusion Reactions: No Reported Reaction Past Psychological History: Anxiety, Depression Smoking Status: Current every day smoker Past Alcohol Use History: None Reported Past Drug Use History: None Reported - Past Family History Mother Family Medical History: No Reported History Additional Family Medical History / Comment(s): Mat. grandfather & 2 cousins dx. with hemophilia. General Exam Limitations: no limitations General appearance: alert, in no apparent distress Head exam: Present: atraumatic, normocephalic Eye exam: Present: normal appearance Respiratory exam: Present: normal lung sounds bilaterally. Absent: respiratory distress, wheezes, rales, rhonchi, stridor Cardiovascular Exam: Present: regular rate, normal rhythm, normal heart sounds. Absent: systolic murmur, diastolic murmur, rubs, gallop GI/Abdominal exam: Present: soft. Absent: distended, tenderness, guarding, rebound, rigid, mass, pulsatile mass, hernia Extremities exam: Present: normal inspection, normal capillary refill. Absent: pedal edema, calf tenderness Back exam: Present: normal inspection. Absent: CVA tenderness (R), CVA tenderness (L) Skin exam: Present: warm, dry, intact, normal color. Absent: rash Course Vital Signs 01/13/19 21:35 Temperature 98 F Pulse Rate 82 Respiratory 18 Rate Blood Pressure 141/87 O2 Sat by Pulse 100 Oximetry Medical Decision Making - Medical Decision Making Discussed with the patient that for workup for this would include consideration of sexually transmitted infection, with the patient at this point does not believe this is a possibility. She will start course of treatment for urinary tract infection and return here if there is no improvement or if there is any worsening. We discussed appropriate further care and follow-up. - Lab Data Lab Results 01/13/19 01/13/19 Range/Units 22:30 22:30 Urine Color Yellow Urine Appearance Turbid H (Clear) Urine pH 5.5 (5.0-8.0) Ur Specific [place] 1.017 (1.001-1.035) Urine Protein Trace H (Negative) Urine Glucose (UA) Negative (Negative) Urine Ketones Negative (Negative) Urine Blood Small H (Negative) Urine Nitrite Positive H (Negative) Urine Bilirubin Negative (Negative) Urine Urobilinogen <2.0 (<2.0) mg/dL Ur Leukocyte Esterase Large H (Negative) Urine RBC 27 H (0-5) /hpf Urine WBC >182 H (0-5) /hpf Urine WBC Clumps Many H (None) /hpf Ur Squamous Epith Cells 3 (0-4) /hpf Urine Bacteria Rare H (None) /hpf Urine Mucus Occasional H (None) /hpf Urine HCG, Qual Not Detected (Not Detectd) Disposition Clinical Impression: Urinary tract infection Disposition: HOME SELF-CARE Condition: Good Instructions (If sedation given, give patient instructions): Urinary Tract Infection in Women (ED) Prescriptions: Levofloxacin [Levaquin] 750 mg PO DAILY #7 tab Is patient prescribed a controlled substance at d/c from ED?: No Referrals: None,Stated [Primary Care Provider] - 1-2 days
== END 2019-01-14 00:14 | disposition home or self-care (01) ==
LOC: EC 21:30
DX: N39.0 Urinary tract infection, site not specified (principal); F17.200 Nicotine dependence, unspecified, uncomplicated; Z32.02 Encounter for pregnancy test, result negative; Z86.14 Personal history of Methicillin resistant Staphylococcus aureus infection; Z90.49 Acquired absence of other specified parts of digestive tract; Z98.51 Tubal ligation status; Z88.2 Allergy status to sulfonamides
CPT/HCPCS: 81001; 81025; 87086; 99283

== ENCOUNTER 2019-12-23 21:56 | Emergency (ER) | payer OTHER ==
[2019-12-23 22:01] VITALS: BP 130/88; PULSE 98; RESP 18
[2019-12-23] MEDS ORDERED: TOPICAL SKIN ADHESIVE 1 EACH AMP TOPICAL ONE (22:15)
--- NOTE | 2019-12-23 22:29 | ED ---
General Adult HPI - General Chief complaint: Wound/Laceration Stated complaint: R Finger Lac Time Seen by Provider: 12/23/19 22:05 Source: patient, RN notes reviewed, old records reviewed Mode of arrival: ambulatory Limitations: no limitations - History of Present Illness Initial comments: This Patient is a 29-year-old female who presents to emergency department today with complaints of a laceration over her right index finger knuckle. Patient reports she cut it while she was washing dishes. She reports full range of motion of the finger. She reports her tetanus is up-to-date. - Related Data Home Medications Medication Instructions Recorded Confirmed Methenamine/Sodium Salicylate 2 tab PO TID PRN 01/13/19 01/13/19 [Cystex Tablet] Previous Rx's Medication Instructions Recorded Levofloxacin [Levaquin] 750 mg PO DAILY #7 tab 01/14/19 Allergies Allergy/AdvReac Type Severity Reaction Status Date / Time Sulfa (Sulfonamide Allergy Anaphylaxis Verified 01/13/19 22:01 Antibiotics) Review of Systems ROS Statement: Those systems with pertinent positive or pertinent negative responses have been documented in the HPI. ROS Other: All systems not noted in ROS Statement are negative. Past Medical History Past Medical History: Osteoarthritis (OA), Seizure Disorder Additional Past Medical History / Comment(s): States hx. heart murmur, head injury at age 11. She states she has had 4 seizures since age 15 -never evaluated. Has intermittent chest pain @ times but has not been evaluated denies sx currently, varicose veins History of Any Multi-Drug Resistant Organisms: MRSA Date of last positivie culture/infection: 2003 MDRO Source:: left breast Past Surgical History: Cholecystectomy, Tubal Ligation Additional Past Surgical History / Comment(s): She has 4 children by natural childbirth. Past Anesthesia/Blood Transfusion Reactions: No Reported Reaction Past Psychological History: Anxiety, Depression Smoking Status: Current every day smoker Past Alcohol Use History: None Reported Past Drug Use History: None Reported - Past Family History Mother Family Medical History: No Reported History Additional Family Medical History / Comment(s): Mat. grandfather & 2 cousins dx. with hemophilia. General Exam - General Exam Comments Initial Comments: 29 year old female. Limitations: no limitations Head exam: Present: atraumatic, normocephalic, normal inspection Eye exam: Present: normal appearance, PERRL, EOMI. Absent: scleral icterus, conjunctival injection, periorbital swelling ENT exam: Present: normal exam, mucous membranes moist Neck exam: Present: normal inspection. Absent: tenderness, meningismus, lymphadenopathy Respiratory exam: Present: normal lung sounds bilaterally. Absent: respiratory distress, wheezes, rales, rhonchi, stridor Cardiovascular Exam: Present: regular rate, normal rhythm, normal heart sounds. Absent: systolic murmur, diastolic murmur, rubs, gallop, clicks GI/Abdominal exam: Present: soft, normal bowel sounds. Absent: distended, tenderness, guarding, rebound, rigid Extremities exam: Present: normal inspection, full ROM, normal capillary refill, other (Patient has a 2 cm superficial laceration over the right index finger first phalangeal joint.). Absent: tenderness, pedal edema, joint swelling, calf tenderness Back exam: Present: normal inspection Neurological exam: Present: alert, oriented X3, CN II-XII intact Psychiatric exam: Present: normal affect, normal mood Skin exam: Present: warm, dry, intact, normal color. Absent: rash Course Vital Signs 12/23/19 21:57 Temperature 97.8 F Pulse Rate 98 Respiratory 18 Rate Blood Pressure 130/88 O2 Sat by Pulse 99 Oximetry Medical Decision Making - Medical Decision Making 29-year-old female presents with superficial laceration over the index first knuckle from cutting on glass washing dishes. Patient has full range of motion. Laceration was closed with Dermabond. T Is up-to-date. Patient tolerated procedure well. Discussed Dermabond care, and monitoring for signs of infection. All questions answered return parameters were discussed. Disposition Clinical Impression: Finger laceration Disposition: HOME SELF-CARE Condition: Good Instructions (If sedation given, give patient instructions): Skin Adhesive Care (ED) Additional Instructions: Allow the Dermabond to fall off on its own. Keep the area covered. Avoid bending the finger for the next 2 days. Please use medication as discussed. Please follow up with family doctor if symptoms have not improved over the next two days. Please return to the emergency room if your symptoms increase or worsen or for any other concerns. Is patient prescribed a controlled substance at d/c from ED?: No Referrals: Donn Pham MD [Primary Care Provider] - 1-2 days Time of Disposition: 22:29
[2019-12-23 22:35] VITALS: TEMP 97.8
== END 2019-12-23 22:41 | disposition home or self-care (01) ==
LOC: EC 21:56
DX: S61.210A Laceration without foreign body of right index finger without damage to nail, initial encounter (principal); F17.200 Nicotine dependence, unspecified, uncomplicated; Z88.2 Allergy status to sulfonamides; W26.8XXA Contact with other sharp object(s), not elsewhere classified, initial encounter; Y93.G1 Activity, food preparation and clean up
CPT/HCPCS: 12001; 99283

== ENCOUNTER 2020-03-30 13:50 | Emergency (ER) | payer OTHER ==
--- NOTE | 2020-03-30 14:24 | ED ---
General Adult HPI - General Chief complaint: Head Injury Stated complaint: fell yesterday and hit head Time Seen by Provider: 03/30/20 14:06 Source: patient, RN notes reviewed, old records reviewed Mode of arrival: wheelchair Limitations: no limitations - History of Present Illness Initial comments: 30-year-old female patient presents ED for evaluation of fall with head injury. Patient reports that she was cleaning the floors in her house, she slipped she fell forward she hit the right forehead region on a corner of the wall. Patient state she caught herself with her right outstretched arm. This occurred yesterday. Patient is complaining of pain in her right hand and wrist as well as a bitemporal headache and some mild dizziness. She states that her neck is stiff but denies any focal area of pain. She denies a loss of consciousness. She denies the use of blood thinners. She denies any chance of being to tubal ligation. Denies any other complaints. Systemic: Pt denies fatigue, fever/chills, rash. Pt denies weakness, night sweats, weight loss. Neuro: Pt denies visual disturbances, syncope or pre-syncope. HEENT: Pt denies ocular discharge or irritation, otalgia, rhinorrhea, pharyngitis or notable lymphadenopathy. Cardiopulmonary: Pt denies chest pain, SOB, heart palpitations, dyspnea on exertion. Abdominal/GI: Pt denies abdominal pain, n/v/d. : Pt denies dysuria, burning w/ urination, frequency/urgency. Denies new onset urinary or bowel incontinence. MSK: Pt denies myalgia, loss of strength or function in extremities. Neuro: Pt denies new onset weakness, paresthesias. - Related Data Home Medications Medication Instructions Recorded Confirmed No Known Home Medications 03/30/20 03/30/20 Allergies Allergy/AdvReac Type Severity Reaction Status Date / Time Sulfa (Sulfonamide Allergy Anaphylaxis Verified 03/30/20 13:59 Antibiotics) Review of Systems ROS Statement: Those systems with pertinent positive or pertinent negative responses have been documented in the HPI. ROS Other: All systems not noted in ROS Statement are negative. Past Medical History Past Medical History: Osteoarthritis (OA), Seizure Disorder Additional Past Medical History / Comment(s): States hx. heart murmur varicose veins History of Any Multi-Drug Resistant Organisms: MRSA Date of last positivie culture/infection: 2003 MDRO Source:: left breast Past Surgical History: Cholecystectomy, Tubal Ligation Additional Past Surgical History / Comment(s): She has 4 children by natural childbirth. Past Anesthesia/Blood Transfusion Reactions: No Reported Reaction Past Psychological History: Anxiety, Depression Smoking Status: Current every day smoker Past Alcohol Use History: None Reported Past Drug Use History: None Reported - Past Family History Mother Family Medical History: No Reported History Additional Family Medical History / Comment(s): Mat. grandfather & 2 cousins dx. with hemophilia. General Exam - General Exam Comments Initial Comments: Constitutional: NAD, AOX3, Pt has pleasant affect. HEENT: NC/AT, trachea midline, neck supple, no lymphadenopathy. Posterior pharynx non erythematous, without exudates. External ears appear normal, without discharge. Mucous membranes moist. Eyes PERRLA, EOM intact. There is no scleral icterus. No pallor noted. Cardiopulmonary: RRR, no murmurs, rubs or gallops, no JVD noted. Lungs CTAB in anterior and posterior alberto. No peripheral edema. Abdominal exam: Abdomen soft and non-distended. Abdomen non-tender to palpation in all 4 quadrants. Bowel sounds active in LLQ. No hepatosplenomegaly. No ecchymosis Neuro: CN II-XII intact. No nuchal rigidity. No raccon eyes, no avelar sign, no hemotympanum. No cervical spinal tenderness. NIH 0. MSK: Ulnar aspect of right wrist and hand mildly tender to palpation. Neurovascularly intact. No snuffbox tenderness. ROM intact. No posterior calf tenderness bilaterally, homans sign negative bilaterally. Posterior tibialis and radial pulse +2 bilaterally. Sensation intact in upper and lower extremities. Full active ROM in upper and lower extremities, 5/5 stregnth. Limitations: no limitations Course Vital Signs 03/30/20 13:56 Temperature 98.8 F Pulse Rate 99 Respiratory 18 Rate Blood Pressure 139/85 O2 Sat by Pulse 98 Oximetry Medical Decision Making - Medical Decision Making 30-year-old female patient presents ED for evaluation of fall with head injury. Patient reports that she was cleaning the floors in her house, she slipped she fell forward she hit the right forehead region on a corner of the wall. Patient state she caught herself with her right outstretched arm. This occurred yesterday. Patient is complaining of pain in her right hand and wrist as well as a bitemporal headache and some mild dizziness. She states that her neck is stiff but denies any focal area of pain. She denies a loss of consciousness. She denies the use of blood thinners. She denies any chance of being to tubal ligation. Denies any other complaints. Patient vital signs are stable, afebrile. Physical exam displayed: Ulnar aspect of right wrist and hand mildly tender to palpation. Neurovascularly intact. No snuffbox tenderness. ROM intact. Neurologic exam is intact. Repeat neurologic exam is intact. Patient declining any analgesia for her headache. Brain C-spine did not display any acute fracture-dislocation cervical spine. No acute intracranial hemorrhage or midline shift is seen. Plain film of hand and wrist did not display any acute process. Patient's symptoms are consistent with a possible concussion. Patient placed in Amandeep wrap. Patient advised to follow up with primary care provider and return here if condition worsens. Upon review of patient's past medical history there was a note from the last time that she is here that she has a history of seizures and states that she sometimes has chest pain. I asked her about this, she states that she has not had a mini seizure in a very long time she'll states that she has not had any pain in her chest or any shortness of breath. I offered her workup for this and she declined. She states that she'll just follow-up with her regular doctor tomorrow. Case discussed with Dr. Cullen. Disposition Clinical Impression: Fall, Wrist sprain, Concussion Disposition: HOME SELF-CARE Condition: Stable Instructions (If sedation given, give patient instructions): Concussion (ED) Additional Instructions: Follow-up with primary care provider tomorrow. Return to ER if condition worsens in any way. Is patient prescribed a controlled substance at d/c from ED?: No Referrals: Donn Pham MD [Primary Care Provider] - 1-2 days
--- NOTE | 2020-03-30 14:49 | CT ---
EXAMINATION TYPE: CT brain cspine wo con DATE OF EXAM: 03/30/2020 COMPARISON: Trauma CT January 19, 2018 HISTORY: Fall yesterday, headache and neck pain. CT DLP: 1403 mGycm. Automated Exposure Control for Dose Reduction was Utilized. TECHNIQUE: CT scan of the head and cervical spine are performed without contrast. FINDINGS: There is no acute intracranial hemorrhage, mass effect, or midline shift identified. The ventricles and sulci are within normal limits in size. Davis-white matter differentiation is maintain ed. The globes are intact and the visualized sinuses are clear. The calvarium is intact. Cervical spine is visualized in its entirety from C1 through upper thoracic levels and demonstrates s atisfactory alignment without evidence of acute fracture or dislocation. Prevertebral soft tissue ap pears within normal limits. The C1-C2 articulation is within normal limits on the coronal images. Ve rtebral body heights and disc space heights are maintained. Spinal canal is preserved. Axial images a re grossly unremarkable. Lung apices show no pneumothorax. IMPRESSION: 1. There is no acute fracture or dislocation evident in the cervical spine. 2. No acute intracranial hemorrhage or midline shift is seen.
--- NOTE | 2020-03-30 15:01 | XR ---
EXAMINATION TYPE: XR wrist complete RT, XR hand complete RT DATE OF EXAM: 03/30/2020 CLINICAL HISTORY: Pain after fall injury. TECHNIQUE: Frontal, lateral and oblique images of the right hand and wrist are obtained. Additional fourth scaphoid view right wrist. COMPARISON: None FINDINGS: There is no acute fracture/dislocation evident in the right wrist. The joint spaces in th e right wrist appear within normal limits. The overlying soft tissue appears unremarkable. Images of right hand show no acute fracture or dislocation. Joint spaces are preserved. Overlying sof t tissue is unremarkable. IMPRESSION: There is no acute fracture or dislocation in the right hand or wrist.
[2020-03-30 16:39] VITALS: BP 145/75; PULSE 78; RESP 20; TEMP 98.2
== END 2020-03-30 16:30 | disposition home or self-care (01) ==
LOC: EC 13:50
DX: S63.501A Unspecified sprain of right wrist, initial encounter (principal); S06.0X0A Concussion without loss of consciousness, initial encounter; F17.200 Nicotine dependence, unspecified, uncomplicated; Z88.2 Allergy status to sulfonamides; W01.198A Fall on same level from slipping, tripping and stumbling with subsequent striking against other object, initial encounter; Y93.E5 Activity, floor mopping and cleaning; Y92.009 Unspecified place in unspecified non-institutional (private) residence as the place of occurrence of the external cause
CPT/HCPCS: 70450; 72125; 99284

== ENCOUNTER 2020-07-15 12:54 | Emergency (ER) | payer OTHER ==
[2020-07-15] MEDS ORDERED: KETOROLAC 15 MG/ML 1 ML VIAL IVP STA (13:19)
[2020-07-15] MEDS ORDERED: ALBUTEROL HFA INHALER INHALATION STA (13:23)
--- NOTE | 2020-07-15 13:59 | XR ---
EXAMINATION TYPE: XR chest 2V DATE OF EXAM: 07/15/2020 COMPARISON: NONE HISTORY: Cough and rib pain. TECHNIQUE: Frontal and lateral views of the chest are obtained. FINDINGS: There is no focal air space opacity, pleural effusion, or pneumothorax seen. The cardiac silhouette size is within normal limits. The osseous structures are intact. IMPRESSION: No acute cardiopulmonary process.
[2020-07-15 14:53] VITALS: RESP 18
[2020-07-15 14:53] LABS: Basophils # (A) 0.1 k/uL (0-0.2); Basophils % (A) 1 %; Eosinophils # (A) 0.6 k/uL (0-0.7); Eosinophils % (A) 7 %; HCT 46.2 % (34.0-46.0); HGB 15.6 gm/dL (11.4-16.0); Lymphocytes # (A) 1.6 k/uL (1.0-4.8); Lymphocytes % (A) 17 %; MCH 32.9 pg (25.0-35.0); MCHC 33.8 g/dL (31.0-37.0); MCV 97.4 fL (80.0-100.0); Mean Platelet Volume 7.2; Monocytes # (A) 0.6 k/uL (0-1.0); Monocytes % (A) 7 %; Neutrophils # (A) 6.4 k/uL (1.3-7.7); Neutrophils % (A) 67 %; Platelet Count 204 k/uL (150-450); RBC 4.74 m/uL (3.80-5.40); WBC 9.5 k/uL (3.8-10.6)
--- NOTE | 2020-07-15 15:14 | ED ---
SOB HPI - General Chief Complaint: Shortness of Breath Stated Complaint: SOB Time Seen by Provider: 07/15/20 13:00 Source: patient Mode of arrival: wheelchair Limitations: no limitations - History of Present Illness Initial Comments: Patient is a 30-year-old female with past medical history of cardiac murmur who presents to the emergency department with reported shortness of breath, cough and chest pain for the past 2 days. Patient reports to a bronchospastic cough with mild phlegm production which has led to chest wall tenderness. Denies sick contacts or recent travel. Denies contact with Covid positive person. Has not been taking any medications at home for her symptoms. No history of underlying lung or cardiac conditions. Denies any fevers or chills. Denies a pleuritic chest pain. Does admit to chest wall pain which is reproducible upon palpation or coughing. Denies hemoptysis. No concern for . Denies any ear pain, sore throat, abdominal pain. No nausea or vomiting. No family history of premature cardiac . No other alleviating, precipitating or modifying factors - Related Data Previous Rx's Medication Instructions Recorded Albuterol Sulfate [Proair Hfa] 1 - 2 puff INHALATION Q4HR PRN #1 07/15/20 inhaler Azithromycin [Zithromax Z-pack (6 0 mg PO DIRECTED #1 pack 07/15/20 tabs)] predniSONE [Deltasone] 20 mg PO BID #10 tab 07/15/20 Allergies Allergy/AdvReac Type Severity Reaction Status Date / Time Sulfa (Sulfonamide Allergy Anaphylaxis Verified 03/30/20 16:11 Antibiotics) Review of Systems ROS Statement: Those systems with pertinent positive or pertinent negative responses have been documented in the HPI. ROS Other: All systems not noted in ROS Statement are negative. Past Medical History Past Medical History: Osteoarthritis (OA), Seizure Disorder Additional Past Medical History / Comment(s): States hx. heart murmur varicose veins History of Any Multi-Drug Resistant Organisms: MRSA Date of last positivie culture/infection: 2003 MDRO Source:: left breast Past Surgical History: Cholecystectomy, Tubal Ligation Additional Past Surgical History / Comment(s): She has 4 children by natural childbirth. Past Anesthesia/Blood Transfusion Reactions: No Reported Reaction Past Psychological History: Anxiety, Depression Smoking Status: Current every day smoker Past Alcohol Use History: None Reported Past Drug Use History: None Reported - Past Family History Mother Family Medical History: No Reported History Additional Family Medical History / Comment(s): Mat. grandfather & 2 cousins dx. with hemophilia. General Exam Limitations: no limitations Course Vital Signs 07/15/20 07/15/20 07/15/20 12:56 14:00 15:59 Temperature 98.4 F 98.0 F Pulse Rate 106 H 97 Respiratory 22 18 18 Rate Blood Pressure 127/85 120/80 O2 Sat by Pulse 97 97 Oximetry - Reevaluation(s) Reevaluation #1: Discuss the results I currently have with the patient. Still pending CMP and troponin level. 07/15/20 15:15 Medical Decision Making - Medical Decision Making Upon arrival the patient was placed into room 5. A thorough history and physical exam is performed. Vitals are obtained. Patient does not demonstrate any signs of respiratory distress. I did order the patient an albuterol inhaler. Laboratory studies were conducted in the patient for chest x-ray. Laboratory studies are unremarkable. Influenza A and B are not detected. Covid swab is still pending. Chest x-ray demonstrates no acute cardiopulmonary process. I did discuss the diagnosis, differential and treatment options. Patient will be treated currently at this time with an albuterol inhaler, steroids and zithromax. Patient was given a dose of Toradol and solumedrol in the emergency department for her bronchospasm. Patient will be discharged at this time he needs to follow up to primary care physician within 2-4 days. Use the medications as directed. Return to the emergency department for any new or worsening symptoms. She will receive a call if her Covid test is positive. Patient understood this. She was given written and verbal discharge instructions and discharged home in stable condition - Lab Data Result diagrams: 07/15/20 14:17 07/15/20 14:17 Lab Results 07/15/20 07/15/20 07/15/20 Range/Units 14:17 14:17 14:17 WBC 9.5 (3.8-10.6) k/uL RBC 4.74 (3.80-5.40) m/uL Hgb 15.6 (11.4-16.0) gm/dL Hct 46.2 H (34.0-46.0) % MCV 97.4 (80.0-100.0) fL MCH 32.9 (25.0-35.0) pg MCHC 33.8 (31.0-37.0) g/dL RDW 12.0 (11.5-15.5) % Plt Count 204 (150-450) k/uL Neutrophils % 67 % Lymphocytes % 17 % Monocytes % 7 % Eosinophils % 7 % Basophils % 1 % Neutrophils # 6.4 (1.3-7.7) k/uL Lymphocytes # 1.6 (1.0-4.8) k/uL Monocytes # 0.6 (0-1.0) k/uL Eosinophils # 0.6 (0-0.7) k/uL Basophils # 0.1 (0-0.2) k/uL Sodium 137 (137-145) mmol/L Potassium 3.8 (3.5-5.1) mmol/L Chloride 103 (98-107) mmol/L Carbon Dioxide 30 (22-30) mmol/L Anion Gap 4 mmol/L BUN 7 (7-17) mg/dL Creatinine 0.86 (0.52-1.04) mg/dL Est GFR (CKD-EPI)AfAm >90 (>60 ml/min/1.73 sqM) Est GFR (CKD-EPI)NonAf >90 (>60 ml/min/1.73 sqM) Glucose 89 (74-99) mg/dL Calcium 9.1 (8.4-10.2) mg/dL Total Bilirubin 0.4 (0.2-1.3) mg/dL AST 23 (14-36) U/L ALT 15 (4-34) U/L Alkaline Phosphatase 104 (38-126) U/L Troponin I <0.012 (0.000-0.034) ng/mL Total Protein 7.3 (6.3-8.2) g/dL Albumin 4.2 (3.5-5.0) g/dL Influenza Type A RNA (Not Detectd) Influenza Type B (PCR) (Not Detectd) 07/15/20 Range/Units 14:17 WBC (3.8-10.6) k/uL RBC (3.80-5.40) m/uL Hgb (11.4-16.0) gm/dL Hct (34.0-46.0) % MCV (80.0-100.0) fL MCH (25.0-35.0) pg MCHC (31.0-37.0) g/dL RDW (11.5-15.5) % Plt Count (150-450) k/uL Neutrophils % % Lymphocytes % % Monocytes % % Eosinophils % % Basophils % % Neutrophils # (1.3-7.7) k/uL Lymphocytes # (1.0-4.8) k/uL Monocytes # (0-1.0) k/uL Eosinophils # (0-0.7) k/uL Basophils # (0-0.2) k/uL Sodium (137-145) mmol/L Potassium (3.5-5.1) mmol/L Chloride (98-107) mmol/L Carbon Dioxide (22-30) mmol/L Anion Gap mmol/L BUN (7-17) mg/dL Creatinine (0.52-1.04) mg/dL Est GFR (CKD-EPI)AfAm (>60 ml/min/1.73 sqM) Est GFR (CKD-EPI)NonAf (>60 ml/min/1.73 sqM) Glucose (74-99) mg/dL Calcium (8.4-10.2) mg/dL Total Bilirubin (0.2-1.3) mg/dL AST (14-36) U/L ALT (4-34) U/L Alkaline Phosphatase (38-126) U/L Troponin I (0.000-0.034) ng/mL Total Protein (6.3-8.2) g/dL Albumin (3.5-5.0) g/dL Influenza Type A RNA Not Detected (Not Detectd) Influenza Type B (PCR) Not Detected (Not Detectd) - EKG Data EKG Comments: EKG demonstrates a normal sinus rhythm with a ventricular rate of 95. IL interval 136. QRS 80. QTC of 472. Acute ST segment elevations or depressions. Disposition Clinical Impression: Cough, Bronchospasm Disposition: HOME SELF-CARE Condition: Stable Instructions (If sedation given, give patient instructions): Acute Bronchitis (ED) Additional Instructions: Please follow-up with your primary care doctor in 2-4 days. Return to the emergency room for any new or worsening symptoms. Take the medications as prescribed. Start the prednisone tomorrow. Use the inhaler every 4 hours. You can start taking the z-pack today. Return to the emergency room for any new or worsening symptoms Prescriptions: predniSONE [Deltasone] 20 mg PO BID #10 tab Albuterol Sulfate [Proair Hfa] 1 - 2 puff INHALATION Q4HR PRN #1 inhaler PRN Reason: difficulty in breathing Azithromycin [Zithromax Z-pack (6 tabs)] 0 mg PO DIRECTED #1 pack Is patient prescribed a controlled substance at d/c from ED?: No Referrals: None,Stated [Primary Care Provider] - 1-2 days Time of Disposition: 15:37
[2020-07-15] MEDS ORDERED: methylPREDNISolone SOD SUCCI 125 MG/2 ML VIAL IV STA (15:16)
[2020-07-15 15:21] LABS: ALT 15 U/L (4-34); AST 23 U/L (14-36); African American GFR (CKD) >90 (>60 ml/min/1.73 sqM); Albumin 4.2 g/dL (3.5-5.0); Alkaline Phosphatase 104 U/L (38-126); Anion Gap 4 mmol/L; Blood Urea Nitrogen 7 mg/dL (7-17); Calcium 9.1 mg/dL (8.4-10.2); Carbon Dioxide 30 mmol/L (22-30); Chloride 103 mmol/L (98-107); Glucose 89 mg/dL (74-99); Non-African American GFR(CKD) >90 (>60 ml/min/1.73 sqM); Potassium 3.8 mmol/L (3.5-5.1); Sodium 137 mmol/L (137-145); Total Bilirubin 0.4 mg/dL (0.2-1.3); Total Protein 7.3 g/dL (6.3-8.2)
[2020-07-15 16:01] VITALS: BP 120/80; PULSE 97; TEMP 98
== END 2020-07-15 16:00 | disposition home or self-care (01) ==
LOC: EC 12:54
DX: J98.01 Acute bronchospasm (principal); F17.200 Nicotine dependence, unspecified, uncomplicated; Z88.2 Allergy status to sulfonamides; Z86.14 Personal history of Methicillin resistant Staphylococcus aureus infection; Z90.49 Acquired absence of other specified parts of digestive tract; Z20.828 Contact with and (suspected) exposure to other viral communicable diseases
CPT/HCPCS: 36415; 94640; 93005; 80053; 84484; 85025; 87502; 71046; 99285; 96374; U0003; J2930

== ENCOUNTER 2020-09-03 13:41 | Emergency (ER) | payer OTHER ==
[2020-09-03 13:47] VITALS: BP 143/86; PULSE 82; RESP 18; TEMP 98.2
[2020-09-03] MEDS ORDERED: methylPREDNISolone SOD SUCCI 125 MG/2 ML VIAL IM ONE (13:59)
--- NOTE | 2020-09-03 14:04 | ED ---
Skin/Abscess/FB HPI - General Chief complaint: Skin/Abscess/Foreign Body Stated complaint: Rash Time Seen by Provider: 09/03/20 13:49 Source: patient Mode of arrival: ambulatory Limitations: no limitations - History of Present Illness Initial comments: Patient is a 30-year-old female presenting to the emergency Department with complaints of a rash that has been increasing over the past week. She states the rash started on her left forearm and has been progressing up her left arm it is now a little bit on her chest. She states the rash is extremely itchy. She's been trying Benadryl cream on the rash but it is not helping. She has not tried oral Benadryl. She states she did start a new job at [employer] and they use oils, so she thinks it could be a reaction to that. She has not changed any laundry soap, body soap, fabric softeners at home. She denies any fever, chills, new medications. She denies any chest pain or shortness of b reath. She is no further complaints at this time. - Related Data Previous Rx's Medication Instructions Recorded Albuterol Sulfate [Proair Hfa] 1 - 2 puff INHALATION Q4HR PRN #1 07/15/20 inhaler Azithromycin [Zithromax Z-pack (6 0 mg PO DIRECTED #1 pack 07/15/20 tabs)] predniSONE [Deltasone] 20 mg PO BID #10 tab 07/15/20 diphenhydrAMINE [Benadryl] 50 mg PO BID PRN #15 capsule 09/03/20 methylPREDNISolone [Medrol Dose 4 mg PO DIRECTED #1 pack 09/03/20 Pack] Allergies Allergy/AdvReac Type Severity Reaction Status Date / Time aloe Allergy Unknown Verified 09/03/20 13:48 Sulfa (Sulfonamide Allergy Anaphylaxis Verified 09/03/20 13:48 Antibiotics) Review of Systems ROS Statement: Those systems with pertinent positive or pertinent negative responses have been documented in the HPI. ROS Other: All systems not noted in ROS Statement are negative. Past Medical History Past Medical History: Osteoarthritis (OA), Seizure Disorder Additional Past Medical History / Comment(s): States hx. heart murmur varicose veins History of Any Multi-Drug Resistant Organisms: MRSA Date of last positivie culture/infection: 2003 MDRO Source:: left breast Past Surgical History: Cholecystectomy, Tubal Ligation Additional Past Surgical History / Comment(s): She has 4 children by natural childbirth. Past Anesthesia/Blood Transfusion Reactions: No Reported Reaction Past Psychological History: Anxiety, Depression Smoking Status: Current every day smoker Past Alcohol Use History: None Reported Past Drug Use History: None Reported - Past Family History Mother Family Medical History: No Reported History Additional Family Medical History / Comment(s): Mat. grandfather & 2 cousins dx. with hemophilia. General Exam - General Exam Comments Initial Comments: GENERAL: Patient is well-developed and well-nourished. Patient is nontoxic and in no acute distress. HEAD: Atraumatic, normocephalic. EYES: Pupils equal round and reactive to light, extraocular movements intact, sclera anicteric, conjunctiva are normal. Eyelids were unremarkable. ENT: TMs normal, nares patent, oropharynx clear without exudates. Moist mucous membranes. NECK: Normal range of motion, supple without lymphadenopathy or JVD. LUNGS: Unlabored respirations. Breath sounds clear to auscultation bilaterally and equal. No wheezes rales or rhonchi. HEART: Regular rate and rhythm without murmurs, rubs or gallops. ABDOMEN: Soft, nontender, normoactive bowel sounds. No guarding, no rebound. No masses appreciated. : Deferred MUSCULOSKELETAL: Normal extremities with adequate strength and normal range of motion, no pitting or edema. No clubbing or cyanosis. NEUROLOGICAL: Patient is alert and oriented x 3. Motor and sensory are also intact. Cranial nerves II through XII grossly intact. Symmetrical smile. Normal speech, normal gait. PSYCH: Normal mood, normal affect. SKIN: Warm, Dry, normal turgor. Patient has a mildly erythematous macular papular rash on her left lower arm with some spreading up the upper arm. She also has a mild rash on her chest. Limitations: no limitations Course Vital Signs 09/03/20 13:46 Temperature 98.2 F Pulse Rate 82 Respiratory 18 Rate Blood Pressure 143/86 O2 Sat by Pulse 100 Oximetry Medical Decision Making - Medical Decision Making Patient is a 30-year-old female here with a mild rash on her left forearm that seems to be spreading over the past week. She denies any new medications, no new soaps or laundry detergents. 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 Patient has been trying Benadryl cream but no oral Benadryl. I discussed with patient that we will start her on steroids today, I will give her shot before she goes. I will also give her prescription for Benadryl to take at night. Patient is in agreement with this plan of care. She is stable for discharge. She can follow up with her PCP. Return parameters were discussed with the patient she verbalized understanding. Disposition Clinical Impression: Rash Disposition: HOME SELF-CARE Condition: Stable Instructions (If sedation given, give patient instructions): Acute Rash (ED) Additional Instructions: Please return to the Emergency Department if symptoms worsen or any other concerns. Rash looks to be an ALLERGIC response to something new. May take oral Benadryl, 50 mg before bedtime for itching. Oral steroids as prescribed, starting them tomorrow. I gave you a shot of steroids today. Follow-up with your PCP if symptoms persist. Prescriptions: diphenhydrAMINE [Benadryl] 50 mg PO BID PRN #15 capsule PRN Reason: Itching methylPREDNISolone [Medrol Dose Pack] 4 mg PO DIRECTED #1 pack Is patient prescribed a controlled substance at d/c from ED?: No Referrals: None,Stated [Primary Care Provider] - 1-2 days
== END 2020-09-03 14:09 | disposition home or self-care (01) ==
LOC: EC 13:41
DX: R21 Rash and other nonspecific skin eruption (principal); F17.200 Nicotine dependence, unspecified, uncomplicated; Z88.2 Allergy status to sulfonamides; Z91.048 Other nonmedicinal substance allergy status
CPT/HCPCS: 99282 ×2; 96372 ×2; J2930

== ENCOUNTER 2020-12-24 19:10 | Emergency (ER) | payer OTHER ==
[2020-12-24 19:28] VITALS: BP 128/76; PULSE 90; RESP 20; TEMP 98.5
[2020-12-24] MEDS ORDERED: ACET/COD 300 MG/30 MG STARTER PACK 6 TAB BTL PO STA (19:43)
--- NOTE | 2020-12-24 20:14 | XR ---
EXAMINATION TYPE: XR hand complete RT DATE OF EXAM: 12/24/2020 COMPARISON: 03/30/2020 HISTORY: Pain TECHNIQUE: 3 views FINDINGS: I see no fracture nor dislocation. Joint spaces are normal. Soft tissues appear normal. IMPRESSION: Normal right hand. No change.
--- NOTE | 2020-12-24 20:20 | ED ---
Upper Extremity HPI - General Chief Complaint: Extremity Injury, Upper Stated Complaint: finger injury Time Seen by Provider: 12/24/20 19:33 Source: patient Mode of arrival: ambulatory Limitations: no limitations - History of Present Illness Initial Comments: 30yo female presenting for cc of right hand pain, mostly right 5th digit. pt states she is moving and box caught her right fifth digit when falling, pulling on it. denies decreased rom of strength but admits to pain with ROM of digits 4/5. Patient denies gross deformity. she states she feels it looks red, denies welling. patient denies additional areas of injury. Patient appears well nontoxic on arrival. - Related Data Previous Rx's Medication Instructions Recorded Albuterol Sulfate [Proair Hfa] 1 - 2 puff INHALATION Q4HR PRN #1 07/15/20 inhaler Azithromycin [Zithromax Z-pack (6 0 mg PO DIRECTED #1 pack 07/15/20 tabs)] predniSONE [Deltasone] 20 mg PO BID #10 tab 07/15/20 diphenhydrAMINE [Benadryl] 50 mg PO BID PRN #15 capsule 09/03/20 methylPREDNISolone [Medrol Dose 4 mg PO DIRECTED #1 pack 09/03/20 Pack] Allergies Allergy/AdvReac Type Severity Reaction Status Date / Time aloe Allergy Unknown Verified 12/24/20 19:28 Sulfa (Sulfonamide Allergy Anaphylaxis Verified 12/24/20 19:28 Antibiotics) Review of Systems ROS Statement: Those systems with pertinent positive or pertinent negative responses have been documented in the HPI. ROS Other: All systems not noted in ROS Statement are negative. Past Medical History Past Medical History: Osteoarthritis (OA), Seizure Disorder Additional Past Medical History / Comment(s): States hx. heart murmur varicose veins History of Any Multi-Drug Resistant Organisms: MRSA Date of last positivie culture/infection: 2003 MDRO Source:: left breast Past Surgical History: Cholecystectomy, Tubal Ligation Additional Past Surgical History / Comment(s): She has 4 children by natural childbirth. Past Anesthesia/Blood Transfusion Reactions: No Reported Reaction Past Psychological History: Anxiety, Depression Smoking Status: Current every day smoker Past Alcohol Use History: None Reported Past Drug Use History: None Reported - Past Family History Mother Family Medical History: No Reported History Additional Family Medical History / Comment(s): Mat. grandfather & 2 cousins dx. with hemophilia. General Exam - General Exam Comments Initial Comments: General: The patient is awake and alert, in no distress Eye: +3mm pupils are equal, round and reactive to light, extra-ocular movements are intact. No nystagmus. There is normal conjunctiva bilaterally. No signs of icterus. Musculoskeletal: On inspection hands equal, no swelling, no redness, no gross deformity. pain with ROM of the 5th and 4th digit of the right hand but ROM is full at MCP, DIP and PIP joints. Strength 5/5. Sensation intact. Radial pulses equal bilaterally 2+. NO anatomical snuff box tenderness. Neurological: A&O x 3. CN II-XII intact grossly, There are no obvious motor or sensory deficits. Coordination appears grossly intact. Speech is normal. Skin: Skin is warm and dry and no rashes or lesions are noted. Psychiatric: Cooperative, appropriate mood & affect, normal judgment. Limitations: no limitations Course Vital Signs 12/24/20 19:25 Temperature 98.5 F Pulse Rate 90 Respiratory 20 Rate Blood Pressure 128/76 O2 Sat by Pulse 99 Oximetry Medical Decision Making - Medical Decision Making no findings of tendon injury. normal exam aside from pain. xr (-). pt admits to injury despite triage provided. Patient neurovascularly intact. and at this time i feel is stable for discharge with PCP f/u and [facility] instruction. Attending Sera. Disposition Clinical Impression: Hand pain, Right hand pain Disposition: HOME SELF-CARE Condition: Good Instructions (If sedation given, give patient instructions): Hand Sprain (ED) Additional Instructions: Please use medication as discussed. Please follow-up with family doctor in the next 2 days. Please return to emergency room if the symptoms increase or worsen or for any other concerns. Is patient prescribed a controlled substance at d/c from ED?: No Referrals: Donn Pham MD [Primary Care Provider] - 1-2 days Time of Disposition: 20:20
== END 2020-12-24 20:29 | disposition home or self-care (01) ==
LOC: EC 19:10
DX: M79.641 Pain in right hand (principal); M19.90 Unspecified osteoarthritis, unspecified site; G40.909 Epilepsy, unspecified, not intractable, without status epilepticus; F17.200 Nicotine dependence, unspecified, uncomplicated; F41.9 Anxiety disorder, unspecified; F32.9 Major depressive disorder, single episode, unspecified; Z88.2 Allergy status to sulfonamides; W23.1XXA Caught, crushed, jammed, or pinched between stationary objects, initial encounter
CPT/HCPCS: 99283

== ENCOUNTER 2021-03-15 20:14 | Emergency (ER) | payer OTHER ==
[2021-03-15 21:02] VITALS: TEMP 97.9
--- NOTE | 2021-03-15 21:41 | ED ---
General Adult HPI - General Chief complaint: Head Injury Stated complaint: [facility] head injury Time Seen by Provider: 03/15/21 21:33 Source: patient, RN notes reviewed, old records reviewed Mode of arrival: ambulatory - History of Present Illness Initial comments: 31-year-old female presenting for evaluation of head injury. Injury occurred at 4 AM this morning which is approximately 15 hours prior to arrival. She was struck on the top of her head by a large piece of glass. The glass did not break. There is no cuts. She had complained of headache and neck pain after the injury but was at work and could not leave work. Her symptoms have not improved throughout the day today. No anticoagulation. No other injury. - Related Data Previous Rx's Medication Instructions Recorded Albuterol Sulfate [Proair Hfa] 1 - 2 puff INHALATION Q4HR PRN #1 07/15/20 inhaler Azithromycin [Zithromax Z-pack (6 0 mg PO DIRECTED #1 pack 07/15/20 tabs)] predniSONE [Deltasone] 20 mg PO BID #10 tab 07/15/20 diphenhydrAMINE [Benadryl] 50 mg PO BID PRN #15 capsule 09/03/20 methylPREDNISolone [Medrol Dose 4 mg PO DIRECTED #1 pack 09/03/20 Pack] Allergies Allergy/AdvReac Type Severity Reaction Status Date / Time aloe Allergy Unknown Verified 03/15/21 20:55 Sulfa (Sulfonamide Allergy Anaphylaxis Verified 03/15/21 20:55 Antibiotics) Review of Systems ROS Statement: Those systems with pertinent positive or pertinent negative responses have been documented in the HPI. ROS Other: All systems not noted in ROS Statement are negative. Past Medical History Past Medical History: Osteoarthritis (OA), Seizure Disorder Additional Past Medical History / Comment(s): States hx. heart murmur varicose veins, carpal tunnel wrist and elbows. History of Any Multi-Drug Resistant Organisms: MRSA Date of last positivie culture/infection: 2003 MDRO Source:: left breast Past Surgical History: Cholecystectomy, Tubal Ligation Additional Past Surgical History / Comment(s): She has 4 children by natural childbirth. Past Anesthesia/Blood Transfusion Reactions: No Reported Reaction Past Psychological History: Anxiety, Depression Smoking Status: Vaper Past Alcohol Use History: None Reported Past Drug Use History: None Reported - Past Family History Mother Family Medical History: No Reported History Additional Family Medical History / Comment(s): Mat. grandfather & 2 cousins dx. with hemophilia. General Exam General appearance: alert, in no apparent distress Head exam: Present: atraumatic, normocephalic, other (No hematoma or laceration) Eye exam: Present: normal appearance, PERRL ENT exam: Present: normal exam Neck exam: Present: normal inspection. Absent: tenderness, meningismus Respiratory exam: Present: normal lung sounds bilaterally. Absent: respiratory distress, wheezes Cardiovascular Exam: Present: regular rate, normal rhythm GI/Abdominal exam: Present: soft. Absent: distended, tenderness, guarding Extremities exam: Present: normal inspection, normal capillary refill. Absent: pedal edema, calf tenderness Neurological exam: Present: alert, oriented X3, CN II-XII intact. Absent: motor sensory deficit Psychiatric exam: Present: normal affect, normal mood Skin exam: Present: warm, dry, intact. Absent: cyanosis, diaphoretic Course Vital Signs 03/15/21 20:55 Temperature 97.9 F Pulse Rate 92 Respiratory 18 Rate Blood Pressure 140/85 O2 Sat by Pulse 99 Oximetry EKG Findings - EKG Comments: EKG Findings:: EKG: Normal sinus rhythm with sinus arrhythmia, T waves are upright, there is no ST segment elevation or depression. Rate is 73, FL interval 134, QRS duration 86, QTC 462 Medical Decision Making - Medical Decision Making 31-year-old female with head injury, persistent symptoms of headache and neck pain. Head CT performed, negative for intracranial hemorrhage or mass effect, cervical spine negative for fracture subluxation. There is a hypodensity which could be related to infarct which is a new finding compared to the exam. Patient had previous computed tomography scan about one year ago. She has no neurological complaints currently. There is no traumatic injury on CT. I Did pl an to admit this patient for MRI and neurology consultation but the patient prefers outpatient follow-up. I discussed case with Dr. Pham who is her primary care physician who will arrange for further workup. Patient is given strict return parameters. Disposition Clinical Impression: Concussion without loss of consciousness, CVA (cerebral vascular accident) Disposition: ADMITTED IP TO THIS [facility] Condition: Stable Instructions (If sedation given, give patient instructions): Transient Ischemic Attack (ED), Concussion (ED) Additional Instructions: Please return with any worsening or changing symptoms. Please call Dr. Pham in the morning. Is patient prescribed a controlled substance at d/c from ED?: No Referrals: Donn Pham MD [Primary Care Provider] - 1-2 days Time of Disposition: 23:14
--- NOTE | 2021-03-15 23:05 | CT ---
EXAMINATION TYPE: CT brain cspine wo con DATE OF EXAM: 03/15/2021 COMPARISON: 03/30/2020 HISTORY: Head injury, head and neck pain. CT DLP: 1401.3 mGycm Automated exposure control for dose reduction was used. Ventricles have normal size. There is no mass effect nor midline shift. There is no evidence of intra cranial hemorrhage. There is 2 x 1.5 cm area of hypodensity in the white matter left frontal lobe. Th e calvarium is intact. The cervical vertebra show mild straightening and slight kyphotic curvature. Disc spaces are normal. Posterior elements are intact. Facet joints are intact. There is no evidence of cervical spine fractu re. IMPRESSION: Hypodense white matter area in the left frontal lobe appears new compared to old exam. There is no ma ss effect. This could be white matter infarct. No hemorrhage. No acute abnormality of the cervical spine. No change compared to old exam.
[2021-03-15] MEDS ORDERED: ASPIRIN 325 MG TAB PO STA (23:07)
[2021-03-15 23:32] VITALS: BP 154/89; PULSE 72; RESP 16
== END 2021-03-15 23:32 | disposition other institution (70) ==
LOC: EC 20:14
DX: S06.300A Unspecified focal traumatic brain injury without loss of consciousness, initial encounter (principal); F32.9 Major depressive disorder, single episode, unspecified; M19.90 Unspecified osteoarthritis, unspecified site; Z90.49 Acquired absence of other specified parts of digestive tract; Z98.51 Tubal ligation status; W22.8XXA Striking against or struck by other objects, initial encounter; Y99.0 Civilian activity done for income or pay
CPT/HCPCS: 70450; 72125; 93005; 99284

== ENCOUNTER 2021-03-20 10:54 | Emergency (ER) | payer OTHER ==
--- NOTE | 2021-03-20 12:19 | ED ---
Chest Pain HPI - General Chief Complaint: Chest Pain Stated Complaint: Chest pressure Time Seen by Provider: 03/20/21 11:53 Source: patient, RN notes reviewed Mode of arrival: wheelchair Limitations: no limitations - History of Present Illness Initial Comments: 31-year-old female presents emergency Department from [facility] with complaints of chest discomfort. Patient states his been ongoing issue for longer than she can remember. Patient was recently seen here for head injury. Patient's refuses to stay for neurology evaluation the time she was following up with [facility] today for possible MRI and neurology. Patient was questioned about chest pain and she states she had chest pressure but this is not new are the usual. Patient does admit to some reflux. Patient denies any shortness of breath. Patient has no significant past medical history for cardiac disease. - Related Data Previous Rx's Medication Instructions Recorded Albuterol Sulfate [Proair Hfa] 1 - 2 puff INHALATION Q4HR PRN #1 07/15/20 inhaler Azithromycin [Zithromax Z-pack (6 0 mg PO DIRECTED #1 pack 07/15/20 tabs)] predniSONE [Deltasone] 20 mg PO BID #10 tab 07/15/20 diphenhydrAMINE [Benadryl] 50 mg PO BID PRN #15 capsule 09/03/20 methylPREDNISolone [Medrol Dose 4 mg PO DIRECTED #1 pack 09/03/20 Pack] Allergies Allergy/AdvReac Type Severity Reaction Status Date / Time aloe Allergy Unknown Verified 03/20/21 11:04 Sulfa (Sulfonamide Allergy Anaphylaxis Verified 03/20/21 11:04 Antibiotics) Review of Systems ROS Statement: Those systems with pertinent positive or pertinent negative responses have been documented in the HPI. ROS Other: All systems not noted in ROS Statement are negative. Past Medical History Past Medical History: Osteoarthritis (OA), Seizure Disorder Additional Past Medical History / Comment(s): States hx. heart murmur varicose veins, carpal tunnel wrist and elbows. History of Any Multi-Drug Resistant Organisms: MRSA Date of last positivie culture/infection: 2003 MDRO Source:: left breast Past Surgical History: Cholecystectomy, Tubal Ligation Additional Past Surgical History / Comment(s): She has 4 children by natural childbirth. Past Anesthesia/Blood Transfusion Reactions: No Reported Reaction Past Psychological History: Anxiety, Depression Smoking Status: Vaper Past Alcohol Use History: None Reported Past Drug Use History: None Reported - Past Family History Mother Family Medical History: No Reported History Additional Family Medical History / Comment(s): Mat. grandfather & 2 cousins dx. with hemophilia. General Exam Limitations: no limitations General appearance: alert, in no apparent distress Head exam: Present: atraumatic, normocephalic, normal inspection ENT exam: Present: normal exam, normal oropharynx, mucous membranes moist Neck exam: Present: normal inspection, full ROM. Absent: tenderness, meningismus, lymphadenopathy Respiratory exam: Present: normal lung sounds bilaterally. Absent: respiratory distress, wheezes, rales, rhonchi, stridor Cardiovascular Exam: Present: regular rate, normal rhythm, normal heart sounds. Absent: systolic murmur, diastolic murmur, rubs, gallop, clicks Neurological exam: Present: alert, oriented X3, CN II-XII intact Skin exam: Present: warm, dry, intact, normal color. Absent: rash Course Vital Signs 03/20/21 11:00 Temperature 98.4 F Pulse Rate 83 Respiratory 18 Rate Blood Pressure 133/84 O2 Sat by Pulse 99 Oximetry Chest Pain MDM - MDM 30 rolled present for chest pain this is an ongoing issue was not new today, sent Over by [facility]. Patient's workup is negative other than mildly elevated lipase she is not chronic alcoholic drink or and has no mental abdominal pain. Patient's offered observation for chest pain patient declined she states she will be following outpatient for her ongoing head injury. Disposition Clinical Impression: Atypical chest pain, GERD (gastroesophageal reflux disease) Disposition: HOME SELF-CARE Condition: Stable Instructions (If sedation given, give patient instructions): Chest Pain (ED) Additional Instructions: Please return to the Emergency Department if symptoms worsen or any other concerns. Is patient prescribed a controlled substance at d/c from ED?: No Referrals: Donn Pham MD [Primary Care Provider] - 1-2 days Time of Disposition: 13:49
[2021-03-20 12:21] LABS: Basophils # (A) 0.1 k/uL (0-0.2); Basophils % (A) 1 %; Eosinophils # (A) 0.5 k/uL (0-0.7); Eosinophils % (A) 7 %; HCT 45.6 % (34.0-46.0); HGB 15.8 gm/dL (11.4-16.0); Lymphocytes # (A) 1.4 k/uL (1.0-4.8); Lymphocytes % (A) 19 %; MCH 32.1 pg (25.0-35.0); MCHC 34.6 g/dL (31.0-37.0); MCV 92.9 fL (80.0-100.0); Mean Platelet Volume 6.8; Monocytes # (A) 0.4 k/uL (0-1.0); Monocytes % (A) 6 %; Neutrophils # (A) 4.8 k/uL (1.3-7.7); Neutrophils % (A) 66 %; Platelet Count 245 k/uL (150-450); RBC 4.91 m/uL (3.80-5.40); RDW 12.1 % (11.5-15.5); WBC 7.3 k/uL (3.8-10.6)
--- NOTE | 2021-03-20 12:30 | XR ---
EXAMINATION TYPE: XR chest 2V DATE OF EXAM: 03/20/2021 COMPARISON: 07/15/2020 HISTORY: chest pain TECHNIQUE: Frontal and lateral views of the chest are obtained. FINDINGS: There is no focal air space opacity, pleural effusion, or pneumothorax seen. The cardiac silhouette size is within normal limits. The osseous structures are intact. IMPRESSION: No acute cardiopulmonary process.
[2021-03-20 12:49] LABS: ALT 16 U/L (4-34); AST 26 U/L (14-36); African American GFR (CKD) >90 (>60 ml/min/1.73 sqM); Albumin 4.5 g/dL (3.5-5.0); Alkaline Phosphatase 80 U/L (38-126); Anion Gap 10 mmol/L; Blood Urea Nitrogen 16 mg/dL (7-17); Calcium 9.2 mg/dL (8.4-10.2); Carbon Dioxide 24 mmol/L (22-30); Chloride 104 mmol/L (98-107); Glucose 88 mg/dL (74-99); Lipase 482 U/L (23-300); Magnesium 1.8 mg/dL (1.6-2.3); Non-African American GFR(CKD) >90 (>60 ml/min/1.73 sqM); Potassium 4.4 mmol/L (3.5-5.1); Sodium 138 mmol/L (137-145); Total Bilirubin 0.4 mg/dL (0.2-1.3); Total Protein 7.7 g/dL (6.3-8.2)
[2021-03-20 13:06] LABS: Partial Thromboplastin Time 23.1 sec (22.0-30.0); Prothrombin Time 10.4 sec (9.0-12.0)
[2021-03-20 14:27] VITALS: BP 131/86; PULSE 70; RESP 16; TEMP 98.3
== END 2021-03-20 14:45 | disposition home or self-care (01) ==
LOC: EC 10:54
DX: K21.9 Gastro-esophageal reflux disease without esophagitis (principal); M19.90 Unspecified osteoarthritis, unspecified site; Z90.49 Acquired absence of other specified parts of digestive tract; Z98.51 Tubal ligation status
CPT/HCPCS: 36415; 71046; 80053; 83690; 83735; 84484; 85025; 85610; 85730; 93005; 99285

== ENCOUNTER → 2021-04-11 | Outpatient (CLI) | payer OTHER ==
--- NOTE | 2021-04-11 16:34 | MR ---
EXAMINATION TYPE: MR brain wo con DATE OF EXAM: 04/11/2021 COMPARISON: CT brain March 15, 2021 HISTORY: Injury to head while working 6-10-21, dizziness, history of right sided numbness and weaknes s, history of seizures, history of being in coma 1999 due to fall. TECHNIQUE: Multiplanar, multisequence imaging of the brain and brainstem is performed without IV cont rast. Trauma protocol. FINDINGS: Diffusion weighted images demonstrate no evidence of a recent infarct or other diffusion abnormality. The ventricular system and cisternal spaces are normal in size and appearance. The brain volume is a ge appropriate. T2 star weighted images show no suspicious intraparenchymal blood product. T2 coronal images show hippocampal gyri to appear symmetric and thought within normal limits Midline structures demonstrate normal morphology. The craniocervical junction appears within normal limits. Normal vascular flow voids are present. The visualized sinuses are clear and the globes are i ntact. Confirmation of suspicious abnormal T2 hyperintense lesions throughout the brain parenchyma bilateral ly. Approximately 10-12 large lesions are present. For reference there is 2.0 x 1.4 x 1.7 cm lesion i n the deep left frontal periventricular white matter axial image 18 and coronal image 9 series 801. IMPRESSION: Moderate white matter changes. Demyelinating disease needs to be strongly considered in p atient of this age.
== END | disposition home or self-care (01) ==
LOC: RADMRIMAIN 15:40
PROVIDERS: ATTEND Emergency Medicine
DX: S09.90XA Unspecified injury of head, initial encounter (principal)
CPT/HCPCS: 70551

== ENCOUNTER → 2021-10-20 | Outpatient (CLI) | payer OTHER ==
--- NOTE | 2021-10-20 23:21 | MR ---
EXAMINATION TYPE: MR lumbar spine wo con DATE OF EXAM: 10/20/2021 COMPARISON: NONE HISTORY: Low back pain that radiates down both legs. Paresthesias. TECHNIQUE: Multiplanar, multisequence imaging of the lumbar spine is performed without IV contrast. FINDINGS: Sagittal images of the lumbar spine show vertebral body heights to appear satisfactory. Sli ght grade 1 retrolisthesis of L4 on L5 and L5 on S1 Disc desiccation L4-L5 level.. Moderate disc spac e narrowing L5-S1 level. The conus medullaris is normal in position and signal ending at the mid L1 level. The bone marrow signal intensity is within normal limits. Axial images show T12-L1, L1-L2, L2-L3, and L3-L4 levels all to appear within normal limits. Axial images at L4-L5 level mild facet degenerative changes bilaterally. There is mild to moderate br oad disc bulge with tiny central disc protrusion minimally effacing the anterior thecal sac. There is mild to moderate right greater than left bilateral neural foraminal narrowing as there is right fora livier disc protrusion component and annular tear identified. Axial images at L5-S1 level shows spondylolisthesis with central disc protrusion. Spinal canal is pre served. Mild bilateral neural foraminal narrowing is present. Paraspinal muscle bulk is preserved. IMPRESSION: Multilevel spondylolisthesis and degenerative changes in the lower lumbar spine as detail ed above.
== END | disposition home or self-care (01) ==
LOC: RADMRIMAIN 13:29
PROVIDERS: ATTEND Psychiatry & Neurology Neurology
DX: M43.17 Spondylolisthesis, lumbosacral region (principal); M47.816 Spondylosis without myelopathy or radiculopathy, lumbar region; M51.27 Other intervertebral disc displacement, lumbosacral region; M99.73 Connective tissue and disc stenosis of intervertebral foramina of lumbar region
CPT/HCPCS: 72148

== ENCOUNTER 2021-12-04 08:21 | Day surgery (SDC) | payer OTHER ==
[2021-12-03 15:23] VITALS: BMI 40.1
[2021-12-04 08:55] VITALS: TEMP 98.1
[2021-12-04] MEDS ORDERED: LACTATED RINGERS 1,000 ML IV ONE (08:57)
[2021-12-04] MEDS ORDERED: fentaNYL (PF) 50 MCG/ML 2 ML AMP ONE (09:04)
[2021-12-04] MEDS ORDERED: MIDAZOLAM 2 MG/2 ML VIAL ONE (09:04)
--- NOTE | 2021-12-04 09:21 | P.PCN ---
Date of Procedure: 12/04/21 Description of Procedure: Procedure: 1. Lumbar puncture for CSF collection PREOPERATIVE DIAGNOSIS: Abnormal MRI findings of the brain and, spine POSTOPERATIVE DIAGNOSIS: Abnormal MRI findings of the brain, and spinal cord SURGEON: Kobe Cornelius ANESTHESIA: Local with 1% lidocaine, and IV sedation : Versed 2 mg, and fentanyl 100 g EBL: None. Specimen removed: 3 mL of CSF in each collecting tube X4 PROCEDURE INDICATION: The patient had history of abnormal Leopoldo, and spinal cord MRI findings . Consulted for lumbar puncture for CSF collection send it for analysis. PROCEDURE DESCRIPTION: The patient was seen and identified. Risks, benefits, complications, and alternatives were discussed with the patient. The patient agreed to proceed with the procedure and signed the consent, and vital signs were stable. Patient was taken to the procedure area, and time out was completed. The patient was placed in sitting position on procedure. . The lumbosacral area was prepped and draped in the usual sterile fashion. Critical pause was taken. Vital signs were closely monitored during the procedure. Posterior superior iliac crest landmarks was identified . The midline lumbar space also identified. Approximately at the level of L4-L5 interspinous space, skin and deeper tissues were localized with 5 mL of 1% lidocaine. Using a 22 gauge 3.5 spinal needle entered into subarachnoid space, with 1 attempt. Clear CSF came out of the spinal needle. 3 mL of CSF fluid collected in each tube 4. Needle was withdrawn intact, skin was cleansed, and bandages were applied. COMPLICATIONS: None. DISPOSITION / PLANS: The patient was placed in a supine position and transferred to the recovery area in a stable condition for observation. Patient was discharged from the recovery room after meeting discharge criteria. Home discharge instructions given to the patient by the staff. The patient was reexamined prior to discharge. The patient recommended to drink plenty of fluids for a few days..
[2021-12-04] MEDS ORDERED: IV FLUID CONTINUATION 1,000 ML IV ONE (09:28)
[2021-12-04 09:30] VITALS: RESP 16
[2021-12-04] MEDS ORDERED: LACTATED RINGERS 1,000 ML IV SCH (09:30)
[2021-12-04] MEDS ORDERED: ACETAMINOPHEN TAB 500 MG TAB ONE (09:47)
[2021-12-04] MEDS ORDERED: ACETAMINOPHEN TAB 500 MG TAB PO ONE (09:49)
[2021-12-04 11:12] VITALS: BP 124/85; PULSE 82
[2021-12-04 17:49] LABS: Appearance,CSF Clear; CSF Tube Number 4; CSF Tube Volume 2.5; Nucleated Cells, CSF 2 u/L (0-5); Red Blood Cell,CSF 0 u/L (0-10)
[2021-12-04 18:01] LABS: Glucose,CSF 53 mg/dL (40-70); Total Protein,CSF 38 mg/dL (12-60)
[2021-12-07 10:31] LABS: VDRL, Qualitative CSF Nonreactive (Nonreactive)
== END 2021-12-04 12:05 | disposition home or self-care (01) ==
LOC: ORPAIN 08:21
DX: R93.89 Abnormal findings on diagnostic imaging of other specified body structures (principal)
CPT/HCPCS: 62270; 81025; 86592; 84157; 82945; 82040; 82042; 82784; 83916; 83873; 89050; 87801; J2250; J3010; 88108

== ENCOUNTER 2021-12-06 07:53 | Emergency (ER) | payer OTHER ==
[2021-12-06 07:57] VITALS: BP 160/93; PULSE 104; RESP 18; TEMP 98.3
[2021-12-06] MEDS ORDERED: diphenhydrAMINE 50 MG/ML 1 ML VIAL IVP STA (08:30)
--- NOTE | 2021-12-06 08:46 | ED ---
Headache HPI - General Chief Complaint: Headache Stated Complaint: Headache Time Seen by Provider: 12/06/21 08:00 Source: patient, RN notes reviewed Mode of arrival: wheelchair Limitations: no limitations - History of Present Illness Initial Comments: This a 31-year-old female presents emergency Department with chief complaint of headache. Patient states that she had a lumbar puncture on Friday for concerns of MS. Patient states she developed a headache right after they told her that she needed to wait at least 24 hours states her headaches are worsening. Patient states is much worse when she gets up. Patient feels very nauseated, has been gagging. Patient states she has diffuse headache and photophobia. Patient states that nothing is alleviating her symptoms. Denies any focal weakness. Denies any chest pain shortness breath. Patient offers no other complaints. - Related Data Home Medications Medication Instructions Recorded Confirmed Bismuth Subsalicylate [Kaopectate] 262 mg PO DAILY PRN 03/20/21 12/06/21 Sertraline HCl [Zoloft] 100 mg PO DAILY@0000 03/20/21 12/06/21 ALPRAZolam [Xanax] 0.5 mg PO DAILY PRN 11/23/21 12/06/21 Butalb/Acetaminophen/Caffeine 1 tab PO DAILY PRN 11/23/21 12/06/21 [Esgic 50-325-40 mg Tablet] Ergocalciferol [Vitamin D2 (1250 1,250 cap PO Q7D 11/23/21 12/06/21 Mcg = 98139 Iu)] Ibuprofen [Motrin] 800 mg PO Q8H 11/23/21 12/06/21 Pantoprazole [Protonix] 40 mg PO DAILY@0000 11/23/21 12/06/21 QUEtiapine [SEROquel] 25 mg PO BID@0000,1200 11/23/21 12/06/21 Allergies Allergy/AdvReac Type Severity Reaction Status Date / Time aloe Allergy severe Verified 12/06/21 08:55 itching Sulfa (Sulfonamide Allergy Anaphylaxis Verified 12/06/21 08:55 Antibiotics) Review of Systems ROS Statement: Those systems with pertinent positive or pertinent negative responses have been documented in the HPI. ROS Other: All systems not noted in ROS Statement are negative. Past Medical History Past Medical History: Hypertension, Osteoarthritis (OA) Additional Past Medical History / Comment(s): being worked up for MS,white matter left frontal lobe-waddles when walking, States hx. head injury 6-10-20,heart murmur,no Rx for htn,varicose veins, carpal tunnel wrist and elbows,bruises easily History of Any Multi-Drug Resistant Organisms: MRSA Date of last positivie culture/infection: 2003 MDRO Source:: left breast Past Surgical History: Cholecystectomy, Tubal Ligation Additional Past Surgical History / Comment(s): She has 4 children by natural childbirth. Past Anesthesia/Blood Transfusion Reactions: No Reported Reaction Past Psychological History: Anxiety, Depression Smoking Status: Vaper Past Alcohol Use History: None Reported Past Drug Use History: None Reported - Past Family History Mother Family Medical History: No Reported History Additional Family Medical History / Comment(s): Mat. grandfather & 2 cousins dx. with hemophilia. General Exam Limitations: no limitations General appearance: alert, in no apparent distress Head exam: Present: atraumatic, normocephalic, normal inspection Eye exam: Present: normal appearance, PERRL, EOMI. Absent: scleral icterus, conjunctival injection, periorbital swelling ENT exam: Present: normal exam, normal oropharynx, mucous membranes moist Neck exam: Present: normal inspection, full ROM. Absent: tenderness, meningismus, lymphadenopathy Respiratory exam: Present: normal lung sounds bilaterally. Absent: respiratory distress, wheezes, rales, rhonchi, stridor Cardiovascular Exam: Present: regular rate, normal rhythm, normal heart sounds. Absent: systolic murmur, diastolic murmur, rubs, gallop, clicks Neurological exam: Present: alert, oriented X3, CN II-XII intact, reflexes normal. Absent: motor sensory deficit Skin exam: Present: warm, dry, intact, normal color. Absent: rash Course Vital Signs 12/06/21 07:55 Temperature 98.3 F Pulse Rate 104 H Respiratory 18 Rate Blood Pressure 160/93 O2 Sat by Pulse 98 Oximetry Medical Decision Making - Medical Decision Making Patient stated that she had to leave secondary to childcare patient left AGAINST MEDICAL ADVICE. Disposition Clinical Impression: Headache Disposition: Left Against Medical Advice Referrals: Donn Pham MD [Primary Care Provider] - 1-2 days
[2021-12-06] MEDS ORDERED: CAFFEINE-SODIUM BENZOATE 500 MG in SODIUM CHLORIDE 0.9% 1,000 ML IVPB ONE (09:00)
== END 2021-12-06 09:41 | disposition left against medical advice (07) ==
LOC: EC 07:53
DX: R51.9 Headache, unspecified (principal); F17.290 Nicotine dependence, other tobacco product, uncomplicated; I10 Essential (primary) hypertension; M19.90 Unspecified osteoarthritis, unspecified site; Z88.2 Allergy status to sulfonamides; Z79.899 Other long term (current) drug therapy; Z53.29 Procedure and treatment not carried out because of patient's decision for other reasons; Z91.09 Other allergy status, other than to drugs and biological substances
CPT/HCPCS: 99283; 96374; 96375; J1200; J1790

== ENCOUNTER 2021-12-08 15:06 | Emergency (ER) | payer OTHER ==
[2021-12-08 15:25] VITALS: RESP 20; TEMP 98.4
[2021-12-08] MEDS ORDERED: CAFFEINE-SODIUM BENZOATE 500 MG in SODIUM CHLORIDE 0.9% 1,000 ML IVPB ONE (15:30)
[2021-12-08] MEDS ORDERED: KETOROLAC 15 MG/ML 1 ML VIAL IVP STA (15:32)
[2021-12-08] MEDS ORDERED: HYDROmorphone 1 MG/ML 1 ML SYRINGE IVP STA ×2 (15:32→16:30)
--- NOTE | 2021-12-08 15:48 | ED ---
General Adult HPI - General Chief complaint: Headache Stated complaint: headache Time Seen by Provider: 12/08/21 15:24 Source: patient, RN notes reviewed, old records reviewed Mode of arrival: wheelchair Limitations: no limitations - History of Present Illness Initial comments: 31 yo female presenting with global headache. Patient has had a positional headache since her lumbar puncture which occurred on December 04. She has tried oral medications at home including caffeine without relief. She denies fever. She's had some nausea. No focal numbness or weakness. She is currently being evaluated for MS and his had both MRI and lumbar puncture for diagnosis. Headache is improved with lying flat and worse with standing. - Related Data Home Medications Medication Instructions Recorded Confirmed Bismuth Subsalicylate [Kaopectate] 262 mg PO DAILY PRN 03/20/21 12/08/21 Sertraline HCl [Zoloft] 100 mg PO DAILY@0000 03/20/21 12/08/21 Butalb/Acetaminophen/Caffeine 1 tab PO DAILY PRN 11/23/21 12/08/21 [Esgic 50-325-40 mg Tablet] Ergocalciferol [Vitamin D2 (1250 1,250 cap PO Q7D 11/23/21 12/08/21 Mcg = 76778 Iu)] Ibuprofen [Motrin] 800 mg PO Q8H 11/23/21 12/08/21 Pantoprazole [Protonix] 40 mg PO DAILY@0000 11/23/21 12/08/21 QUEtiapine [SEROquel] 25 mg PO BID@0000,1200 11/23/21 12/08/21 ALPRAZolam [Xanax] 0.25 mg PO HS PRN 12/08/21 12/08/21 Allergies Allergy/AdvReac Type Severity Reaction Status Date / Time aloe Allergy severe Verified 12/08/21 17:31 itching Sulfa (Sulfonamide Allergy Anaphylaxis Verified 12/08/21 17:31 Antibiotics) Review of Systems ROS Statement: Those systems with pertinent positive or pertinent negative responses have been documented in the HPI. ROS Other: All systems not noted in ROS Statement are negative. Past Medical History Past Medical History: Hypertension, Osteoarthritis (OA) Additional Past Medical History / Comment(s): being worked up for MS,white matter left frontal lobe-waddles when walking, States hx. head injury 6-10-20,heart murmur,no Rx for htn,varicose veins, carpal tunnel wrist and elbows,bruises easily History of Any Multi-Drug Resistant Organisms: MRSA Date of last positivie culture/infection: 2003 MDRO Source:: left breast Past Surgical History: Cholecystectomy, Tubal Ligation Additional Past Surgical History / Comment(s): She has 4 children by natural childbirth. Past Anesthesia/Blood Transfusion Reactions: No Reported Reaction Past Psychological History: Anxiety, Depression Smoking Status: Former smoker, Vaper Past Alcohol Use History: None Reported Past Drug Use History: None Reported - Past Family History Mother Family Medical History: No Reported History Additional Family Medical History / Comment(s): Mat. grandfather & 2 cousins dx. with hemophilia. General Exam Limitations: no limitations General appearance: alert, in no apparent distress Head exam: Present: atraumatic, normocephalic Eye exam: Present: normal appearance, PERRL ENT exam: Present: normal exam Neck exam: Present: normal inspection. Absent: tenderness, meningismus Respiratory exam: Present: normal lung sounds bilaterally. Absent: respiratory distress, wheezes Cardiovascular Exam: Present: regular rate, normal rhythm GI/Abdominal exam: Present: soft. Absent: distended, tenderness Extremities exam: Present: normal inspection, normal capillary refill. Absent: pedal edema Neurological exam: Present: alert, oriented X3, CN II-XII intact. Absent: motor sensory deficit Psychiatric exam: Present: normal affect, normal mood Skin exam: Present: warm, dry, intact. Absent: cyanosis, diaphoretic Course Vital Signs 12/08/21 12/08/21 15:21 17:03 Temperature 98.4 F Pulse Rate 99 80 Respiratory 20 20 Rate Blood Pressure 136/75 134/76 O2 Sat by Pulse 98 98 Oximetry Medical Decision Making - Medical Decision Making 31-year-old female presenting with headache, headache consistent with status post lumbar puncture. She is given caffeine, Toradol, Dilaudid and IV fluids. On reevaluation she is feeling better. We discussed possibility of blood patch and at this time the patient will try hydration and medication at home. If her symptoms should worsen or return she will return to the emergency department for further evaluation treatment, likely blood patch by anesthesia. - Lab Data Result diagrams: 12/08/21 15:42 12/08/21 15:42 Lab Results 12/08/21 12/08/21 12/08/21 Range/Units 15:42 15:42 15:42 WBC 5.0 (3.8-10.6) k/uL RBC 4.64 (3.80-5.40) m/uL Hgb 15.1 (11.4-16.0) gm/dL Hct 44.1 (34.0-46.0) % MCV 95.1 (80.0-100.0) fL MCH 32.5 (25.0-35.0) pg MCHC 34.2 (31.0-37.0) g/dL RDW 12.4 (11.5-15.5) % Plt Count 219 (150-450) k/uL MPV 7.0 Neutrophils % 65 % Lymphocytes % 21 % Monocytes % 8 % Eosinophils % 2 % Basophils % 1 % Neutrophils # 3.3 (1.3-7.7) k/uL Lymphocytes # 1.1 (1.0-4.8) k/uL Monocytes # 0.4 (0-1.0) k/uL Eosinophils # 0.1 (0-0.7) k/uL Basophils # 0.0 (0-0.2) k/uL PT 10.7 (9.0-12.0) sec INR 1.0 (<1.2) APTT 25.1 (22.0-30.0) sec Sodium 138 (137-145) mmol/L Potassium 3.5 (3.5-5.1) mmol/L Chloride 102 (98-107) mmol/L Carbon Dioxide 25 (22-30) mmol/L Anion Gap 11 mmol/L BUN 13 (7-17) mg/dL Creatinine 0.83 (0.52-1.04) mg/dL Est GFR (CKD-EPI)AfAm >90 (>60 ml/min/1.73 sqM) Est GFR (CKD-EPI)NonAf >90 (>60 ml/min/1.73 sqM) Glucose 106 H (74-99) mg/dL Calcium 8.9 (8.4-10.2) mg/dL Total Bilirubin 0.4 (0.2-1.3) mg/dL AST 22 (14-36) U/L ALT 17 (4-34) U/L Alkaline Phosphatase 77 (38-126) U/L Total Protein 8.1 (6.3-8.2) g/dL Albumin 4.4 (3.5-5.0) g/dL Disposition Clinical Impression: Headache, Lumbar puncture headache Disposition: HOME SELF-CARE Condition: Fair Instructions (If sedation given, give patient instructions): Acute Headache (ED) Is patient prescribed a controlled substance at d/c from ED?: No Referrals: Donn Pham MD [Primary Care Provider] - 1-2 days Leticia Rodriguez MD [REFERRING] - 1-2 days Time of Disposition: 17:54
[2021-12-08 15:55] LABS: Basophils % (A) 1 %; Eosinophils # (A) 0.1 k/uL (0-0.7); Eosinophils % (A) 2 %; HCT 44.1 % (34.0-46.0); HGB 15.1 gm/dL (11.4-16.0); Lymphocytes # (A) 1.1 k/uL (1.0-4.8); Lymphocytes % (A) 21 %; MCH 32.5 pg (25.0-35.0); MCHC 34.2 g/dL (31.0-37.0); MCV 95.1 fL (80.0-100.0); Monocytes # (A) 0.4 k/uL (0-1.0); Monocytes % (A) 8 %; Neutrophils # (A) 3.3 k/uL (1.3-7.7); Neutrophils % (A) 65 %; Platelet Count 219 k/uL (150-450); RBC 4.64 m/uL (3.80-5.40); RDW 12.4 % (11.5-15.5)
[2021-12-08 16:10] LABS: ALT 17 U/L (4-34); AST 22 U/L (14-36); African American GFR (CKD) >90 (>60 ml/min/1.73 sqM); Albumin 4.4 g/dL (3.5-5.0); Alkaline Phosphatase 77 U/L (38-126); Anion Gap 11 mmol/L; Blood Urea Nitrogen 13 mg/dL (7-17); Calcium 8.9 mg/dL (8.4-10.2); Carbon Dioxide 25 mmol/L (22-30); Chloride 102 mmol/L (98-107); Glucose 106 mg/dL (74-99); Non-African American GFR(CKD) >90 (>60 ml/min/1.73 sqM); Potassium 3.5 mmol/L (3.5-5.1); Sodium 138 mmol/L (137-145); Total Bilirubin 0.4 mg/dL (0.2-1.3); Total Protein 8.1 g/dL (6.3-8.2)
[2021-12-08 16:23] LABS: Partial Thromboplastin Time 25.1 sec (22.0-30.0); Prothrombin Time 10.7 sec (9.0-12.0)
[2021-12-08] MEDS ORDERED: FAMOTIDINE 20 MG/2 ML VIAL IV STA (16:30)
[2021-12-08 17:05] VITALS: BP 134/76; PULSE 80
== END 2021-12-08 18:30 | disposition home or self-care (01) ==
LOC: EC 15:06
DX: G97.1 Other reaction to spinal and lumbar puncture (principal); R51.9 Headache, unspecified; I10 Essential (primary) hypertension; M19.90 Unspecified osteoarthritis, unspecified site; F32.A Depression, unspecified; F41.9 Anxiety disorder, unspecified; Z87.891 Personal history of nicotine dependence; Z79.899 Other long term (current) drug therapy
CPT/HCPCS: 36415; 80053; 85025; 85610; 85730; 99284; 96365; 96366; 96375 ×3; 96376; J1170; J1885

== ENCOUNTER → 2021-12-31 | Outpatient (CLI) | payer OTHER ==
--- NOTE | 2021-12-31 19:03 | CT ---
EXAMINATION TYPE: CT iac wo con DATE OF EXAM: 12/31/2021 COMPARISON: CT dated 03/15/2021 HISTORY: dizziness CT DLP: 150mGycm Automated exposure control for dose reduction was used. FINDINGS: Complete obliteration of the left mastoid air cells, left aditus ad antrum and left middle ear cavity , which may suggest otomastoiditis, please correlate clinically. Apparently intact left middle ear os sicles and the left scutum. Unremarkable right middle ear cavity yet with slightly thickened right ty mpanic membrane. Minimal opacification of the right inferior mastoid cells. Symmetrical unremarkable inner ear structu res and internal auditory canals. Intact tegmen tympani bilaterally. Clear visualized portion of the paranasal sinuses. Prominent nasopharyngeal soft tissue. IMPRESSION: Signs suggestive of left otomastoiditis, please correlate clinically. Underlying small cholesteatoma cannot be excluded. Other findings as described above.
== END | disposition home or self-care (01) ==
LOC: RADCTMAIN 16:36
PROVIDERS: ATTEND Otolaryngology
DX: H73.22 Unspecified myringitis, left ear (principal); R42 Dizziness and giddiness
CPT/HCPCS: 70480

== ENCOUNTER → 2022-02-15 | Outpatient (CLI) | payer OTHER ==
--- NOTE | 2022-02-19 13:18 | CA ---
Exercise Stress Test Report Name: Yoko Dunbar Exam Date: 02/15/2022 09:12 Exam Location: Blanket Stress Ht (in): 64 Wt (lb): 240 BSA: 2.11 Ordering Phys: Donn Pham MD Referring Phys: sharita,, Technologist: Neil Love Age: 31 Gender: F : 1990 Procedure CPT: Indications: R07.9 CHEST PAIN ICD-10 Codes: Patient History: CHEST PAIN Medications: QUIDAPINE, BUSPIRONE,SARTRALINE, IBUPROFEN, BUDIBIDOL Meds past 24 hrs: Pretest Chest Pain: STRESS TEST Héctor Protocol Exercise Duration (min:sec): 09:[address] Depressions (mm): Angina Score: Rodriguez Score: Resting HR (bpm): 80 Peak HR (bpm): 174 Resting BP (mmHg): 135 / 94 Peak BP (mmHg): 199 / 64 MPHR: 188 Target HR: 160 % MPHR: 93 METS: 10.3 Total Dose: Peak Dose: Atropine: Double Product: 94965 BP Response: Stress Termination: Reached target heart rate Stress Symptoms: NO SYMPTOMS Stress Summary: ECG ANALYSIS Resting ECG: Stress ECG: CONCLUSIONS Stress EKG findings: At baseline patient's EKG showed normal sinus rhythm, normal axis, no significant ST or T wave abnormalities. At peak exercise, EKG showed no significant change from baseline. Conclusions: 1. Normal EKG response to exercise without evidence of inducible ischemia. 2. Good exercise capacity. Dr. Carlos Francis DO (Electronically Signed) Final Date: 15 Feb 2022 12:59
== END | disposition home or self-care (01) ==
LOC: RADNMMAIN 08:30
PROVIDERS: ATTEND Family Medicine
DX: R07.9 Chest pain, unspecified (principal)
CPT/HCPCS: 93017

== ENCOUNTER → 2022-03-15 | Outpatient (CLI) | payer OTHER ==
[2022-03-15 18:51] LABS: Basophils # (A) 0.06 X 10*3/uL (0.00-0.10); Eosinophils # (A) 0.18 X 10*3/uL (0.04-0.35); Eosinophils % (A) 2.9 %; HCT 42.5 % (37.2-46.3); HGB 13.4 g/dL (12.0-15.0); Immature Grans, Automated 0.7 %; Lymphocytes # (A) 1.52 X 10*3/uL (0.90-5.00); Lymphocytes % (A) 24.7 %; MCH 30.7 pg (27.0-32.0); MCHC 31.5 g/dL (32.0-37.0); MCV 97.3 fL (80.0-97.0); Mean Platelet Volume 9.5 fL (9.5-12.2); Monocytes # (A) 0.45 X 10*3/uL (0.20-1.00); Monocytes % (A) 7.3 %; NRBC Per 100 WBC 0 /100 WBCS (0.0-0.0); Neutrophils % (A) 63.4 %; Platelet Count 306 X 10*3/uL (140-440); RBC 4.37 X 10*6/uL (4.10-5.20); WBC 6.15 X 10*3/uL (4.50-10.00)
[2022-03-15 19:07] LABS: ALT 18 U/L (8-44); AST 17 U/L (13-35)
== END | disposition home or self-care (01) ==
LOC: LABWHC1 10:57
PROVIDERS: ATTEND Psychiatry & Neurology Neurology
DX: G35 Multiple sclerosis (principal)
CPT/HCPCS: 36415; 84450; 84460; 85025

== ENCOUNTER → 2022-04-19 | Outpatient (CLI) | payer OTHER ==
--- NOTE | 2022-04-19 08:48 | MR ---
MRI CERVICAL SPINE: CLINICAL HISTORY: Multiple sclerosis TECHNIQUE: Multiplanar, multisequence imaging of the cervical spine is performed without IV contrast. Demyelinating disease protocol. COMPARISON: CT cervical spine March 15, 2021. FINDINGS: Sagittal images of the cervical spine show the craniocervical junction to remain within nor mal limits. The cervical and upper thoracic spinal cord is normal in caliber and signal. Stable alig nment with some loss of normal cervical curvature. The vertebral body and intravertebral disk height s remain normal. The bone marrow signal intensity is within normal limits. Axial images at C2-C3 level shows a right paracentral/foraminal tiny disc protrusion mildly effacing anterolateral thecal sac. Patent bilateral neural foramina. Axial images at C3-C4 level show lobulated right paracentral disc protrusion effacing the anterior th ecal sac and causing mild right-sided neural foraminal narrowing. Axial images at C4-C5 level show small broad-based right paracentral disc protrusion mildly effacing the anterior thecal sac and causing asymmetric mild right-sided neural foraminal narrowing. Axial images at C5-C6 level show mild right paracentral disc protrusion minimally effacing anterior t hecal sac, patent bilateral neural foramina. Axial images at C6-C7 level shows small left foraminal disc herniation causing mild left-sided neural foraminal narrowing. Axial images at C7-T1 level appear within normal limits. IMPRESSION: No MRI evidence for demyelinating disease involvement in the cervical spinal cord. Redemo nstration of some loss of normal cervical curvature with mild multilevel degenerative changes as deta iled above.
--- NOTE | 2022-04-19 08:55 | MR ---
EXAMINATION TYPE: MR brain wo/w con DATE OF EXAM: 04/19/2022 COMPARISON: CT brain March 15, 2021. MRI brain April 11, 2021 HISTORY: Vertigo, short term memory loss, multiple sclerosis. TECHNIQUE: Multiplanar, multisequence images of the brain and brainstem is performed without and with IV contras t, utilizing 11 mL intravenous Gadavist gadolinium contrast is administered intravenously. Demyelina ting disease protocol with additional Sagittal Flair sequence performed. FINDINGS: T2 Lesions Present : Yes Approximate Number of Lesions: Approximately 10 Locations Identified : Scattered Size of Reference Lesion(s): 1. 1.9 x 1.2 x 1.6 cm left frontal periventricular lesion axial image 14 and sagittal image 94 grossl y stable 2 1.0 x 0.9 x 0.7 cm deep right frontal lesion axial image 20 and sagittal image 169 grossly stable o r slightly less prominent from axial image 21 Enhancing Lesion(s) Present: No T1 Hypointense Lesion(s) Present: Yes Change from Prior: Slight decrease in number and size of some of the lesions. Other lesions stable. Diffusion weighted images demonstrate no evidence of a recent infarct or other diffusion abnormality. There is no worrisome extra-axial fluid collection. The ventricular system and cisternal spaces ar e normal in size and appearance. The brain volume is age appropriate. Midline structures demonstrate normal morphology. The craniocervical junction appears within normal limits. Post contrast images demonstrate no abnormal enhancement. The dural venous sinuses appear pa tent. The visualized sinuses are clear and the globes are intact. IMPRESSION: Mild to moderate white matter changes redemonstrated likely on basis of known multiple sc lerosis. Slight improvement in size and number of lesions from most recent MRI. No new or enhancing l esions are evident.
== END | disposition home or self-care (01) ==
LOC: RADMRIMAIN 07:27
PROVIDERS: ATTEND Psychiatry & Neurology Neurology
DX: G35 Multiple sclerosis (principal); M47.812 Spondylosis without myelopathy or radiculopathy, cervical region
CPT/HCPCS: 70553; 72141; A9585

== ENCOUNTER → 2022-05-03 | Outpatient (CLI) | payer OTHER ==
[2022-05-03 11:15] VITALS: BP 136/85; PULSE 77; RESP 16; TEMP 98.5
--- NOTE | 2022-05-03 12:04 | P.GSHP ---
History of Present Illness H&P Date: 05/03/22 Chief Complaint: mass left breast Yoko is a 32 year old female seen in consultation for Imani Beard regarding a mass in her left breast. She had a bilateral mammogram done on 04-11-22 which showed dense breast tissue and no discrete masses. She also had an ultrasound on 03-21-22 which showed a 2 by 2.4 cm mass at the 3 oclock position of the left breast. It was found within the last month. It has not changed at all. She has never had anything like this in the past. She has not had any surgery on her breast. She has not had any recent trauma or infection in her breast. Proximally 17 years ago she had a staph infection in her left breast. This was related to nipple piercing. Caffiene: Pepsi and Mountain Dew all day Nicotine: stopped smoking 2 years ago; use to smoke 1 PPD for 10 years chocolate: rare hormones: none; BCP: stopped 10 years ago, used them for 3 years Family History: Maternal grandmother: Breast cancer Maternal aunt: Breast cancer Hormonal History: menarche: 10 , breast fed: yes, age at first : 16 periods regular LMP: now Surgical History: tubaligation gallbladder Medical History: Multiple sclerosis Lupus questionable Anxiety/depression bipolar Social history: Nicotine: Negative Alcohol: Negative Drugs: Negative - Constitutional Constitutional: Denies chills, Denies fever - EENT Comment: vertigo, mastitis behind left ear Eyes: denies blurred vision, denies pain Ears: deny: decreased hearing, tinnitus Ears, nose, mouth and throat: Reports headache - Breasts Breasts: bilateral: as per HPI - Cardiovascular Cardiovascular: Reports chest pain, Denies shortness of breath - Respiratory Respiratory: Denies cough, Denies 7 - Gastrointestinal Comment: PUD Gastrointestinal: Reports diarrhea, Denies abdominal pain, Denies nausea, Denies vomiting - Genitourinary (Female) Genitourinary: Denies dysuria, Denies hematuria - Menstruation Menstruation: Reports period normal - Musculoskeletal Comment: arthrtis in hands knees, and back and neck - Integumentary Integumentary: Denies pruritus, Denies rash - Neurological Neurological: Reports numbness, Denies weakness - Psychiatric Psychiatric: Reports anxiety, Reports depression - Endocrine Endocrine: Reports fatigue, Denies weight change - Hematologic/Lymphatic Comment: none - Allergic/Immunologic Allergic/Immunologic: Reports as per HPI Past Medical History Past Medical History: Hypertension, Osteoarthritis (OA) Additional Past Medical History / Comment(s): being worked up for MS,white matter left frontal lobe-waddles when walking, States hx. head injury 03-15-20,heart murmur,no Rx for htn,varicose veins, carpal tunnel wrist and elbows,bruises easily, vertigo History of Any Multi-Drug Resistant Organisms: MRSA Date of last positivie culture/infection: 2003 MDRO Source:: left breast Past Surgical History: Cholecystectomy, Tubal Ligation Additional Past Surgical History / Comment(s): She has 4 children by natural childbirth. Past Anesthesia/Blood Transfusion Reactions: No Reported Reaction Past Psychological History: Anxiety, Depression Smoking Status: Former smoker, Vaper Past Alcohol Use History: None Reported Additional Past Alcohol Use History / Comment(s): quit smoking 2019,quit vaping 2020 Past Drug Use History: None Reported - Past Family History Mother Family Medical History: No Reported History Additional Family Medical History / Comment(s): Mat. grandfather & 2 cousins dx. with hemophilia. Medications and Allergies Home Medications Medication Instructions Recorded Confirmed Type Sertraline HCl [Zoloft] 100 mg PO DAILY@0000 03/20/21 05/03/22 History Butalb/Acetaminophen/Caffeine 1 tab PO DAILY PRN 11/23/21 05/03/22 History [Esgic 50-325-40 mg Tablet] Ergocalciferol [Vitamin D2 (1250 1,250 cap PO Q7D 11/23/21 05/03/22 History Mcg = 81096 Iu)] Ibuprofen [Motrin] 800 mg PO Q8H 11/23/21 05/03/22 History Pantoprazole [Protonix] 40 mg PO DAILY@0000 11/23/21 05/03/22 History QUEtiapine [SEROquel] 25 mg PO BID@0000,1200 11/23/21 05/03/22 History busPIRone HCL 15 mg PO TID 04/22/22 05/03/22 History Gabapentin 600 mg PO HS 05/03/22 05/03/22 History Allergies Allergy/AdvReac Type Severity Reaction Status Date / Time aloe Allergy severe Verified 05/03/22 11:09 itching Sulfa (Sulfonamide Allergy Anaphylaxis Verified 05/03/22 11:09 Antibiotics) Surgical - Exam Vital Signs Temp Pulse Resp BP Pulse Ox 98.5 F 77 16 136/85 98 05/03/22 11:09 05/03/22 11:09 05/03/22 11:09 05/03/22 11:09 05/03/22 11:09 BMI: 36.9 - General moderate distress - Eyes normal ocular movement - Neck trachea midline - Respiratory normal respiratory effort, clear to auscultation - Cardiovascular Rhythm: regular Heart Sounds: normal: S1, S2 - Abdomen Abdomen: soft, non tender, no guarding, no rigid, no rebound - Integumentary normal turgor - Neurologic no disoriented, no combative - Musculoskeletal normal gait, normal posture - Psychiatric oriented to time, oriented to person, oriented to place, speech is normal, memory intact Breast Exam: BRA: 40DD Inspection: Bilateral grade 3 ptosis Palpation: Right breast: Multi-positional exam no dominant masses or nodules of concern, fibrocystic changes Right axilla: No adenopathy of concern Left breast: Multiple positional exam fibrocystic changes, at approximately the 4:30 position there is a firm area of nodularity consistent with what was seen on ultrasound this is approximately 2-1/2 cm in size Left axilla: No adenopathy of concern Results Ultrasound and mammogram results reviewed Assessment and Plan Assessment: Impression: Multiple sclerosis Lupus questionable Anxiety/depression bipolar Mass left breast Ultrasound abnormality left breast Plan: Ultrasound-guided biopsy lesion left breast Patient follow-up after ultrasound-guided biopsy
== END ==
LOC: WWCWWP 10:45
PROVIDERS: ATTEND Surgery
DX: N63.0 Unspecified lump in unspecified breast (principal); R92.8 Other abnormal and inconclusive findings on diagnostic imaging of breast; G35 Multiple sclerosis; F41.9 Anxiety disorder, unspecified; F31.9 Bipolar disorder, unspecified; F17.290 Nicotine dependence, other tobacco product, uncomplicated; I10 Essential (primary) hypertension; M19.90 Unspecified osteoarthritis, unspecified site; Z88.2 Allergy status to sulfonamides; Z91.09 Other allergy status, other than to drugs and biological substances

== ENCOUNTER → 2022-05-07 | Day surgery (SDC) | payer OTHER ==
--- NOTE | 2022-05-15 09:50 | USB ---
Pathology Description: Location: 3 o'clock, upper outer quadrant, middle. Marker Left Behind. Needle Type: Mammotome Cores: 4 Skin Nicks: 1 Gauge: 13 The procedure of ultrasound guided core biopsy was explained to the patient. Benefits, alternatives, and risks were discussed. An informed consent was then obtained. A timeout was performed. The patient was placed in supine positioning for imaging and for the procedure. The overlying skin was prepped and draped in usual sterile fashion. Lidocaine was used as anesthetic into the skin and subcutaneous tissue up to area of concern in the left breast. A small skin iwona was made with surgical scalpel. Under ultrasound guidance, a 12-gauge vacuum assisted biopsy gun device was used to obtain 5 core samples. A biopsy clip was left in lesion. Hydromark core marker was placed. The patient tolerated the procedure well without any immediate complication. The patient was kept in the radiology department for short stay after the procedure and then discharged home in stable condition. Postprocedure mammogram: The patient was transferred to mammography for physician ordered post procedure mammogram for clip placement verification. Impression: Successful ultrasound guided core biopsy of area of concern in the left breast, full pathology results to follow. Recommendations: 1. Recommendations are pending pathology results. Pathology Results: Result: Malignant, Invasive ductal carcinoma. LEFT BREAST, THREE O'CLOCK, NEEDLE CORE BIOPSY: Invasive poorly differentiated ductal carcinoma. See Surgical Pathology Cancer Case Summary and Comment. Tissue Density: Left: The breast tissue is heterogeneously dense. This may lower the sensitivity of mammography. Findings: The procedure of ultrasound guided core biopsy was explained to the patient. Benefits, alternatives, and risks were discussed. An informed consent was then obtained. A timeout was performed. The patient was placed in supine positioning for imaging and for the procedure. The overlying skin was prepped and draped in usual sterile fashion. Lidocaine was used as anesthetic into the skin and subcutaneous tissue up to area of concern in the left breast. A small skin iwona was made with surgical scalpel. Under ultrasound guidance, a 12-gauge vacuum assisted biopsy gun device was used to obtain 5 core samples. A biopsy clip was left in lesion. Hydromark core marker was placed. The patient tolerated the procedure well without any immediate complication. The patient was kept in the radiology department for short stay after the procedure and then discharged home in stable condition. Postprocedure mammogram: The patient was transferred to mammography for physician ordered post procedure mammogram for clip placement verification. Impression: Successful ultrasound guided core biopsy of area of concern in the left breast, full pathology results to follow. Recommendations: 1. Recommendations are pending pathology results. Overall Assessment: Malignant Assessment: MG diagnostic mammo LT wo CAD. - Left: Known biopsy proven malignancy, BI-RAD 6. Management: Surgical Consultation of the left breast. Electronically signed and approved by: Tony Redding D.O. Radiologis
== END ==
LOC: RADUSWWP 12:40
PROVIDERS: ATTEND Surgery
DX: C50.912 Malignant neoplasm of unspecified site of left female breast (principal); Z17.0 Estrogen receptor positive status [ER+]; Z88.2 Allergy status to sulfonamides; F17.200 Nicotine dependence, unspecified, uncomplicated; Z84.89 Family history of other specified conditions
CPT/HCPCS: 88305; 88342; 88341; 77065; 19083; A4648

== ENCOUNTER → 2022-06-05 | Outpatient (CLI) | payer OTHER ==
--- NOTE | 2022-06-06 06:49 | BMR ---
EXAMINATION TYPE: MR breast BILAT wo/w con DATE OF EXAM: 06/05/2022 COMPARISON: Outside bilateral breast mammogram March 21, 2022 BI-RADS 0. Diagnostic left breast ultras ound Limited April 11, 2022 BI-RADS 4. Bilateral breasts axilla ultrasound May 28, 2022 HISTORY: Left breast palpable mass, Abnormal imaging in pacs, breast ca on ultrasound core biopsy Aug ust 2. TECHNIQUE: A series of fat and water weighted images in the long and short axis views of both breasts are obtained in conjunction with dynamic contrast MRI with subtraction technique. The patient was i njected with 10 mL intravenous Gadavist gadolinium contrast. Three-dimensional and additional postp rocessing imaging is created on independent workstation and reviewed during official interpretation o f this study. REFERENCE: Reference FINDINGS: Extremely dense fibroglandular tissue bilaterally is redemonstrated. There is occasional ti ny thin-walled cysts scattered throughout both breasts. Suspicious left axillary lymph node seen best series 4 1 image 129 with rounded contour and loss of fatty hilum measuring 1.2 x 1.2 cm. No suspici ous right-sided adenopathy. Dynamic postcontrast imaging shows moderate background enhancement with t iny areas of nodularity bilaterally. Delayed dynamic imaging shows no suspicious internal mammary grady nopathy. With regards to the right breast no abnormal skin thickening is seen. No pathologic enhancement or en hancing masses are noted. The chest wall is intact. Regards to the left breast there is in the middle depth lateral aspect at level of the nipple round h eterogeneous enhancing mass with artifact from biopsy clip along the lateral aspect measuring approxi mately 2.7 x 2.6 cm image 338 series 701 by 2.9 cm craniocaudal dimension sagittal image 17 correspon ding to known biopsy-proven neoplasm. Lesion is just over 6.0 cm distance away from the nipple. Lesio n shows areas of rapid uptake and washout. No additional enhancing masses are identified. No suspicio us skin thickening is seen. Chest wall is intact. IMPRESSION: Known malignancy left breast redemonstrated. No MRI evidence for multicentric disease lef t breast or suspicious enhancing mass in the right breast. Suspicious left axillary lymph node on MRI not clearly seen on recent ultrasound. BI-RADS 2 benign findings right breast. BI-RADS 6 biopsy-proven malignancy left breast Recommendation: If abnormal left axillary adenopathy will change management coordinator of known left breast neop lasm would advise second look ultrasound. Otherwise appropriate surgical and oncologic management adv ised.
== END | disposition home or self-care (01) ==
LOC: RADMRIMAIN 08:46
PROVIDERS: ATTEND Internal Medicine
DX: C50.912 Malignant neoplasm of unspecified site of left female breast (principal)
CPT/HCPCS: C8908; A9585; 77049

== ENCOUNTER 2022-06-20 12:06 | Day surgery (SDC) | payer OTHER ==
[2022-06-18 16:13] VITALS: BMI 37.9
[~2022-06-20 12:06] MED LIST: ACETAMINOPHEN TAB 500 MG TAB PO PRN; HEPARIN SODIUM,PORCINE/PF 5,000 UNIT/0.5 ML SYRINGE SQ PRN; HYDROmorphone 0.5 MG/0.5 ML SYRINGE IVP PRN; LACTATED RINGERS 1,000 ML IV SCH; ONDANSETRON 4 MG/2 ML VIAL IVP ONE; Pre Op ABX Message 1 EACH MISC MISCELLANE ONE; fentaNYL (PF) 50 MCG/ML 2 ML AMP IV PRN
[2022-06-20] MEDS ORDERED: ONDANSETRON 4 MG/2 ML VIAL ONE (13:40)
[2022-06-20] MEDS ORDERED: MIDAZOLAM 2 MG/2 ML VIAL IVP ONE (13:45)
--- NOTE | 2022-06-20 13:47 | P.GSHP ---
History of Present Illness H&P Date: 06/20/22 Chief Complaint: Left breast cancer 32-year-old female here today for Port-A-Cath placement. Patient with recent diagnosis of stage II left breast cancer. Patient will be initiating neoadjuvant chemotherapy. Here today for Port-A-Cath for ministration of chemo. Past Medical History Past Medical History: Cancer, Hypertension, Osteoarthritis (OA) Additional Past Medical History / Comment(s): HX OF MS, BEING TESTED FOR LUPUS, States hx. head injury 03-15-20, heart murmur,no Rx for htn,varicose veins, carpal tunnel wrist and elbows,bruises easily, vertigo, NEW DX LT BREAST CANCER, HX MASTOIDITIS History of Any Multi-Drug Resistant Organisms: MRSA Date of last positivie culture/infection: 2003 MDRO Source:: left breast Past Surgical History: Cholecystectomy, Tubal Ligation Additional Past Surgical History / Comment(s): She has 4 children by natural childbirth. BMT CHILD Past Anesthesia/Blood Transfusion Reactions: No Reported Reaction Smoking Status: Former smoker - Past Family History Mother Family Medical History: No Reported History Additional Family Medical History / Comment(s): Mat. grandfather & 2 cousins dx. with hemophilia. Medications and Allergies Home Medications Medication Instructions Recorded Confirmed Type Sertraline HCl [Zoloft] 100 mg PO HS 03/20/21 06/20/22 History Ibuprofen [Motrin] 800 mg PO Q8H 11/23/21 06/20/22 History Pantoprazole [Protonix] 40 mg PO HS 11/23/21 06/20/22 History QUEtiapine [SEROquel] 25 mg PO HS 11/23/21 06/20/22 History busPIRone HCL 15 mg PO HS 04/22/22 06/20/22 History Folic Acid 1 mg PO HS 06/18/22 06/20/22 History Allergies Allergy/AdvReac Type Severity Reaction Status Date / Time aloe Allergy severe Verified 06/20/22 13:13 itching Sulfa (Sulfonamide Allergy Anaphylaxis Verified 06/20/22 13:13 Antibiotics) Surgical - Exam Vital Signs Temp Pulse Resp BP Pulse Ox 98.6 F 89 18 144/92 99 06/20/22 13:22 06/20/22 13:22 06/20/22 13:22 06/20/22 13:22 06/20/22 13:22 Physical exam: General: Well-developed, well-nourished HEENT: Normocephalic, sclerae nonicteric Abdomen: Nontender, nondistended Extremities: No edema Neuro: Alert and oriented Assessment and Plan (1) Breast cancer, left Narrative/Plan: 32-year-old female with left breast cancer. We'll proceed with Port-A-Cath placement at this time. Risks of bleeding, infection, DVT, pneumothorax, catheter malfunction, anesthesia related complications were discussed. The patient understands and wishes to proceed. Current Visit: Yes Status: Acute Code(s): C50.912 - MALIGNANT NEOPLASM OF UNSPECIFIED SITE OF LEFT FEMALE BREAST SNOMED Code(s): 753977695
[2022-06-20] MEDS ORDERED: NALOXONE 0.4 MG/ML 1 ML VIAL IV PRN (15:00)
[2022-06-20] MEDS ORDERED: ACETAMINOPHEN TAB 325 MG TAB PO PRN (15:00)
--- NOTE | 2022-06-20 15:00 | P.OP ---
Date of Procedure: 06/20/22 Procedure(s) Performed: PREOPERATIVE DIAGNOSIS: Lymphoma, malfunctioning catheter POSTOPERATIVE DIAGNOSIS: Same PROCEDURE: Port-A-Cath removal SURGEON: Mallika EBL: Minimal ANESTHESIA: Sedation COMPLICATIONS: None OPERATIVE PROCEDURE: Patient was placed in the supine position. The patient was sedated per anesthesia that time. The chest was prepped and draped in the usual sterile fashion. The skin was localized with Marcaine solution. The previous incision was re-incised using a scalpel. The port was easily excised using accommodation of blunt dissection sharp dissection and electrocautery. The subcutaneous tissues were reapproximated using 3-0 Vicryl sutures. The skin was reapproximated using 4-0 Monocryl sutures. Skin glue was then applied. DISPOSITION: Stable to recovery room
[2022-06-20] MEDS ORDERED: PROPOFOL 10 MG/ML 20 ML VIAL IV ONE (15:10)
[2022-06-20] MEDS ORDERED: LIDOCAINE 2% INJ 20 MG/ML (2 ML VIAL) ONE (15:10)
[2022-06-20] MEDS ORDERED: MIDAZOLAM 2 MG/2 ML VIAL ONE (15:10)
[2022-06-20] MEDS ORDERED: fentaNYL (PF) 50 MCG/ML 2 ML AMP ONE (15:10)
[2022-06-20] MEDS ORDERED: SODIUM CHLORIDE 0.9% 100 ML with ceFAZolin 2,000 MG IV ONE ×2 (15:22)
[2022-06-20] MEDS ORDERED: LIDOCAINE (PF) 10 MG/ML 2 ML VIAL SQ ONE ×2 (15:36)
[2022-06-20] MEDS ORDERED: HEPARIN SODIUM,PORCINE 100 UNIT/ML 5 ML VIAL IV ONE (15:36)
--- NOTE | 2022-06-20 16:09 | P.OP ---
Date of Procedure: 06/20/22 Procedure(s) Performed: PREOPERATIVE DIAGNOSIS: Left breast cancer POSTOPERATIVE DIAGNOSIS: Same PROCEDURE: Port-A-Cath placement with fluoroscopic and ultrasound guidance SURGEON: Mallika EBL: Minimal ANESTHESIA: Sedation COMPLICATIONS: None OPERATIVE PROCEDURE: Patient was brought and placed on the operative table in the supine position. The patient was sedated per anesthesia that time. The chest and neck were prepped and draped in usual sterile fashion. The ultrasound probe was used to identify the location of the right internal jugular vein. The skin was localized with lidocaine. The Seldinger needle was advanced into the IJ under ultrasound guidance. The wire was advanced through the needle under fluoroscopic guidance into the superior vena cava. A port pocket was created in the right infraclavicular location. The catheter was tunneled from the wire entrance site to the port pocket. The port was then connected to the catheter. The dilator introducer was threaded over the guidewire. The guidewire and dilator were then removed. The catheter was advanced through the introducer and introducer was then removed. The tip was seen to be in the right atrial junction via fluoroscopy. A picture of the radiograph showing the tip at the radial digital junction was taken. Port was flushed with both saline and a Hep- Lock solution. There was good flow both in and out of the port. The port was sutured in underlying tissues using 3-0 silk sutures. The subcutaneous tissues were reapproximated using 3-0 Vicryl sutures and the skin at both locations using 4-0 Monocryl sutures. Skin glue and sterile dressings then applied. DISPOSITION: Stable to recovery room
[2022-06-20 16:31] VITALS: TEMP 97.8
[2022-06-20 16:38] VITALS: RESP 16
--- NOTE | 2022-06-20 16:55 | XR ---
EXAMINATION TYPE: XR chest 1V confirm line plcid DATE OF EXAM: 06/20/2022 COMPARISON: 03/20/2021 HISTORY: 32 year-old female check line placement TECHNIQUE: Single frontal view of the chest is obtained. FINDINGS: Heart normal size. Aorta and pulmonary vasculature within normal limits. Lungs and pleural spaces are clear. Placement of right anterior chest wall injection port with catheter tip at the mid to lower S VC level. IMPRESSION: Right-sided injection port with catheter tip at the mid to lower SVC level. No acute car diopulmonary process.
[2022-06-20 17:13] VITALS: BP 145/92; PULSE 80
--- NOTE | 2022-06-21 08:19 | FL ---
Fluoroscopy INDICATION: Pain FINDINGS: Fluoroscopy time: 22 seconds. Images obtained: 1. IMPRESSIONS: 1. Documentation of fluoroscopy.
== END 2022-06-20 17:29 | disposition home or self-care (01) ==
LOC: OR 12:06
PROVIDERS: ATTEND Surgery
DX: C50.912 Malignant neoplasm of unspecified site of left female breast (principal); C85.90 Non-Hodgkin lymphoma, unspecified, unspecified site; T82.524A Displacement of infusion catheter, initial encounter; I10 Essential (primary) hypertension; M19.90 Unspecified osteoarthritis, unspecified site; R01.1 Cardiac murmur, unspecified; G56.00 Carpal tunnel syndrome, unspecified upper limb; K21.9 Gastro-esophageal reflux disease without esophagitis; M32.9 Systemic lupus erythematosus, unspecified; R42 Dizziness and giddiness; Z87.39 Personal history of other diseases of the musculoskeletal system and connective tissue; Z90.89 Acquired absence of other organs; Z98.51 Tubal ligation status; Z87.891 Personal history of nicotine dependence; Z82.0 Family history of epilepsy and other diseases of the nervous system; Z88.2 Allergy status to sulfonamides; Z91.09 Other allergy status, other than to drugs and biological substances; Z86.73 Personal history of transient ischemic attack (TIA), and cerebral infarction without residual deficits; Z79.899 Other long term (current) drug therapy
CPT/HCPCS: 81025; 77001; 36590; 36561; 76942; C1788; J2250; J2001 ×2; J1642; J2405; J0690; J3010; J2704; J1644

== ENCOUNTER 2022-06-25 12:52 | Day surgery (SDC) | payer OTHER ==
[2022-06-25 13:04] VITALS: BP 131/84; PULSE 81; RESP 16
[2022-06-25 13:08] VITALS: TEMP 98.1
--- NOTE | 2022-06-25 15:17 | US ---
EXAMINATION TYPE: US biopsy lymph node DATE OF EXAM: 06/25/2022 HISTORY: Left breast cancer, abnormal MRI FINDINGS: Maximal barrier technique was utilized. Hand hygiene achieved with soap and water and alco hol-based hand rub. The skin overlying a suitable path to the patient's left axillary node was locali zed with ultrasound and the overlying skin prepped and draped. Ultrasound was utilized with sterile technique. Lidocaine was used for local anesthesia. A skin iwona was made with a scalpel. An 18-gau ge needle was advanced under direct ultrasound guidance and core specimen obtained of the mass. Speci men submitted in formalin to Pathology. Following the procedure, hemostasis achieved and the patient is discharged in stable condition without complication. IMPRESSION:STATUS POST ULTRASOUND GUIDED CORE BIOPSY OF left axillary node, PATHOLOGY IS PENDING. TH IS PROCEDURE IS PERFORMED BY THE UNDERSIGNED.
== END 2022-06-25 14:50 | disposition home or self-care (01) ==
LOC: RADPROMAIN 12:52
PROVIDERS: ATTEND Internal Medicine
DX: R22.32 Localized swelling, mass and lump, left upper limb (principal)
CPT/HCPCS: 36415; 38505; 76942; 88305

== ENCOUNTER → 2022-09-28 | Outpatient (CLI) | payer OTHER ==
--- NOTE | 2022-09-28 22:01 | MR ---
EXAMINATION TYPE: MR brain wo/w con DATE OF EXAM: 09/28/2022 12:20 PM CLINICAL INDICATION:Female, 32 years old with history of C50.412 BREAST CANCER; COMPARISON: 04/19/2022 most recent MRI brain, CT internal auditory canal 12/23/2021. TECHNIQUE: Multi planar, multi sequence imaging was performed through the brain including: T1, T2, In version recovery, susceptibility weighted imaging and gradient echo imaging and Diffusion weighted im aging. The patient was then given intravenous contrast and multi planar, T1 fat-saturation images wer e obtained. IV Contrast: 9 cc Gadavist FINDINGS: The ventricular system, basal cisterns appear unremarkable. Diffusion-weighted imaging shows no evide nce of restricted diffusion to suggest acute/subacute infarct. Intracranial arterial flow voids are m aintained. Midline structures show no abnormality. Scattered foci of high T2 signal intensity are seen within the periventricular white matter. White ma tter changes are stable from prior on 04/19/2022. The susceptibility weighted images do not reveal any evidence for micro-hemorrhage. After administrat ion of gadolinium, no abnormal enhancement is seen. The bone marrow signal is within normal limits. Paranasal sinuses and mastoid air cells: Scattered paranasal sinus disease with high T2 signal.. Ther e is heterogenous high T2 signal seen within the left temporal bone Visualized orbits: Orbital contents are intact. IMPRESSION: 1. No evidence of intracranial mass, acute/subacute infarct, or abnormal enhancement. 2. Similar white matter changes likely secondary to multiple sclerosis. No new or enhancing lesions a re evident. 3. Abnormal signal within the left temporal bone which could represent left middle ear effusion and m astoid air cell effusion as seen on prior CT on 12/31/2021.
== END | disposition home or self-care (01) ==
LOC: RADMRIMAIN 11:26
PROVIDERS: ATTEND Internal Medicine
DX: C50.412 Malignant neoplasm of upper-outer quadrant of left female breast (principal); R90.82 White matter disease, unspecified; R93.7 Abnormal findings on diagnostic imaging of other parts of musculoskeletal system
CPT/HCPCS: 70553; A9585

== ENCOUNTER → 2022-12-26 | Outpatient (CLI) | payer OTHER ==
--- NOTE | 2022-12-31 08:15 | BMR ---
EXAMINATION TYPE: MR breast BILAT wo/w con DATE OF EXAM: 12/26/2022 COMPARISON: Prior MRI bilateral breast June 05, 2022 HISTORY: LT BREAST CANCER on ultrasound-guided biopsy May 2022, RECENT LUMP FELT RT LATERAL SIDE B Y PT, SCHEDULED MASTECTOMY 01-14-2023 TECHNIQUE: A series of fat and water weighted images in the long and short axis views of both breasts are obtained in conjunction with dynamic contrast MRI with subtraction technique. The patient was i njected with 9 mL intravenous Gadavist gadolinium contrast. Three-dimensional and additional postpr ocessing imaging is created on independent workstation and reviewed during official interpretation of this study. Findings: Extremely dense fibroglandular tissue bilaterally is redemonstrated. No significant cystic change or focal fluid collections are identified. No abnormal axillary adenopathy on current study. A rtifact from upper medial right chest wall Mediport catheter is now present. Dynamic postcontrast caron ging shows no significant background enhancement bilaterally. Delayed dynamic imaging shows no suspic ious internal mammary adenopathy. With regards to the right breast no abnormal skin thickening is seen. No pathologic enhancement or en hancing masses are noted. The chest wall is intact. With regards to the left breast there is artifact from biopsy clip in the outer left breast middle de pth just below the level of the nipple. No significant residual enhancement. No new enhancement or en hancing masses are present. Chest wall is intact. IMPRESSION: Known malignancy left breast now less well-visualized. No MRI evidence for invasive malig job in the right breast. No abnormal enlarged lymph nodes currently. Findings consistent with posit betsy treatment response to the known left breast neoplasm BI-RADS 2 benign findings right breast. BI-RADS 6 biopsy-proven malignancy left breast Recommendation: Continued appropriate surgical and oncologic management advised of known left breast malignancy.
== END | disposition home or self-care (01) ==
LOC: RADMRIMAIN 08:54
PROVIDERS: ATTEND Internal Medicine
DX: C50.412 Malignant neoplasm of upper-outer quadrant of left female breast (principal)
CPT/HCPCS: C8908; A9585; 77049

== ENCOUNTER 2023-01-14 09:46 | Observation (INO) | payer OTHER ==
--- NOTE | 2023-01-09 16:43 | P.PN ---
Subjective Progress Note Date: 01/09/23 Principal diagnosis: stage IIA left breast invasive ductal carcinoma stage IIA left breast invasive ductal cancer Yoko is a 32 year old female seen in consultation for Imani Beard regarding a mass in her left breast. She had a bilateral mammogram done on 04-11-22 which showed dense breast tissue and no discrete masses. She also had an ultrasound on 03-21-22 which showed a 2 by 2.4 cm mass at the 3 oclock position of the left breast. She had never had anything like this in the past. She had not had any surgery on her breast. She had not had any recent trauma or infection in her breast. Approximately 17 years ago she had a staph infection in her left breast. This was related to nipple piercing. A biopsy on 05-07-22 revealed Grade 3 ER+, Pr-,Her2+2 invasive ductal cancer left breast Her case was presented at tumor board on 05-28-22 and neoadjuvant chemotherapy was recommended She completed 4 cycles of dose dense AC with nulasta on 09-05-22; She completed her last treatment of Taxol on 11-28-22. Discussed breast MRI to evaluate after neoadjuvant chemotherapy. Which was done on 12-26-22. Caffiene: Pepsi and Mountain Dew all day Nicotine: stopped smoking 3 years ago; use to smoke 1 PPD for 10 years; has started vaping chocolate: rare hormones: none; BCP: stopped 10 years ago, used them for 3 years Family History: Maternal grandmother: Breast cancer Maternal aunt: Breast cancer Hormonal History: menarche: 10 , breast fed: yes, age at first : 16 periods regular LMP: now Surgical History: tubaligation gallbladder port a cath placed Medical History: Multiple sclerosis Lupus Anxiety/depression bipolar Social history: Nicotine: Negative Alcohol: Negative Drugs: Negative - Constitutional Constitutional: Denies chills, Denies fever - EENT Comment: vertigo, mastitis behind left ear Eyes: denies blurred vision, denies pain Ears: deny: decreased hearing, tinnitus Ears, nose, mouth and throat: Reports headache - Breasts Breasts: bilateral: as per HPI - Cardiovascular Cardiovascular: Reports chest pain, Denies shortness of breath - Respiratory Respiratory: Denies cough - Gastrointestinal Comment: PUD Gastrointestinal: Reports diarrhea, Denies abdominal pain, Denies nausea, Denies vomiting - Genitourinary (Female) Genitourinary: Denies dysuria, Denies hematuria - Menstruation Menstruation: Reports period normal - Musculoskeletal Comment: arthrtis in hands knees, and back and neck - Integumentary Integumentary: Denies pruritus, Denies rash - Neurological Neurological: Reports numbness, Denies weakness - Psychiatric Psychiatric: Reports anxiety, Reports depression - Endocrine Endocrine: Reports fatigue, Denies weight change - Hematologic/Lymphatic Comment: none - Allergic/Immunologic Allergic/Immunologic: Reports as per HPI Past Medical History Past Medical History: Hypertension, Osteoarthritis (OA) Additional Past Medical History / Comment(s): being worked up for MS,white matter left frontal lobe-waddles when walking, States hx. head injury 03-15-20,heart murmur,no Rx for htn,varicose veins, carpal tunnel wrist and elbows,bruises easily, vertigo History of Any Multi-Drug Resistant Organisms: MRSA Date of last positivie culture/infection: 2003 MDRO Source:: left breast Past Surgical History: Cholecystectomy, Tubal Ligation Additional Past Surgical History / Comment(s): She has 4 children by natural childbirth. Past Anesthesia/Blood Transfusion Reactions: No Reported Reaction Past Psychological History: Anxiety, Depression Smoking Status: Former smoker, Vaper Past Alcohol Use History: None Reported Additional Past Alcohol Use History / Comment(s): quit smoking 2019,quit vaping 2020 Past Drug Use History: None Reported - Past Family History Mother Family Medical History: No Reported History Additional Family Medical History / Comment(s): Mat. grandfather & 2 cousins dx. with hemophilia. Medications and Allergies Home Medications Medication Instructions Recorded Confirmed Type Sertraline HCl [Zoloft] 100 mg PO DAILY@0000 03/20/21 05/03/22 History Butalb/Acetaminophen/Caffeine 1 tab PO DAILY PRN 11/23/21 05/03/22 History [Esgic 50-325-40 mg Tablet] Ergocalciferol [Vitamin D2 (1250 1,250 cap PO Q7D 11/23/21 05/03/22 History Mcg = 94700 Iu)] Ibuprofen [Motrin] 800 mg PO Q8H 11/23/21 05/03/22 History Pantoprazole [Protonix] 40 mg PO DAILY@0000 11/23/21 05/03/22 History QUEtiapine [SEROquel] 25 mg PO BID@0000,1200 11/23/21 05/03/22 History busPIRone HCL 15 mg PO TID 04/22/22 05/03/22 History Gabapentin 600 mg PO HS 05/03/22 05/03/22 History Allergies Allergy/AdvReac Type Severity Reaction Status Date / Time aloe Allergy severe Verified 05/03/22 11:09 itching Sulfa (Sulfonamide Allergy Anaphylaxis Verified 05/03/22 11:09 Antibiotics) Objective - Vital Signs Vital signs: Intake & Output 01/08/23 01/09/23 01/09/23 18:59 06:59 18:59 Weight 94.347 kg - Exam BMI: 35.7 - Constitutional General appearance: Present: cooperative - EENT Eyes: Present: EOMI ENT: Present: hearing grossly normal - Neck Neck: Present: normal ROM - Respiratory Respiratory: bilateral: CTA - Cardiovascular Rhythm: regular Heart sounds: normal: S1, S2 - Gastrointestinal General gastrointestinal: Present: soft - Integumentary Integumentary: Present: normal turgor - Musculoskeletal Musculoskeletal: Present: gait normal - Psychiatric Psychiatric: Present: A&O x's 3, appropriate affect, intact judgment & insight - Additional findings Additional findings: Breast Exam: BRA: 40DD Inspection: Grade 3 ptosis Palpation: Right breast: Multi-positional exam fibrocystic changes no dominant masses or nodules of concern Right axilla: No adenopathy of concern Left breast: Multiple positional exam no residual palpable mass of concern fibrocystic changes Left axilla: No adenopathy of concern Assessment and Plan Assessment: Impression: Multiple sclerosis Lupus Anxiety/depression bipolar Stage II left breast invasive ductal carcinoma status post neoadjuvant chemotherapy Plan: MRI of the breast done on . Findings benign BIRADS 2 on the right, BIRADS 6 biopsy-proven malignancy left breast. No significant residual enhancement was noted no new enhancement or enhancing masses were present. genetic testing: appointment with DR. Figueroa, she had an appointment with him A Bilateral mastectomy with reconstruction and left breast sentinal node injection, left breast sentinel node biopsy, possible left axillary node dissection We have had a discussion that she does not have to have a mastectomy. However she has talked to her family and after consideration she does not want to keep her breast and be concerned about a recurrent cancer and would like to have bilateral mastectomy. She would like to have reconstruction and she was seen by Dr. Gabriel. CC: Dr. Pham
[~2023-01-14 09:46] MED LIST changes: -ACETAMINOPHEN TAB 500 MG TAB PO PRN; +DEXAMETHASONE SOD PHOSPHATE 4 MG/ML 1 ML VIAL IV ONE; -LACTATED RINGERS 1,000 ML IV SCH; +LIDOCAINE 1% (10MG/ML) FOR IV START INTRADERMA PRN; -ONDANSETRON 4 MG/2 ML VIAL IVP ONE; +ONDANSETRON 4 MG/2 ML VIAL IVP PRN; +SCOPOLAMINE 1 MG/72 HR PATCH TRANSDERM ONE; -fentaNYL (PF) 50 MCG/ML 2 ML AMP IV PRN
[2023-01-14] MEDS: LACTATED RINGERS 1,000 ML IV SCH (10:05)
[2023-01-14] MEDS ORDERED: SCOPOLAMINE 1 MG/72 HR PATCH TRANSDERM ONE (10:46)
[2023-01-14 10:53] LABS: Glucose,Whole Blood 118 mg/dL (70-110)
[2023-01-14] MEDS ORDERED: MIDAZOLAM 2 MG/2 ML VIAL IVP ONE (11:10)
--- NOTE | 2023-01-14 11:36 | P.NAPBC ---
NAPBC Queries - NAPBC Queries Was patient's case review presented at [facility] tumor board? If no, comment.: Yes Was patient's pathology reviewed at [facility]? If no, comment.: Yes Was breast conservation surgery offered? If no, comment.: Yes Was sentinel node biopsy offered? If no, comment.: Yes Was diagnosis confirmed by percutaneous core biopsy? If no, comment.: Yes Is patient mastectomy patient?: Yes Was a preop referral to reconstructive surgeon offered?: Yes Clinical Stage: left breast stage IIA invasive ductal cancer
--- NOTE | 2023-01-14 12:00 | NM ---
EXAMINATION TYPE: NM sentinel node injection DATE OF EXAM: 01/14/2023 COMPARISON: NONE CLINICAL INDICATION:Female, 32 years old with history of BREAST CA; TECHNIQUE AND FINDINGS: The procedure of sentinel lymph node injection was explained to the patient. The benefits, alternatives, and risks were discussed. An informed consent was then obtained. Overlying skin is cleaned with sterile alcohol. Following this, 513 uCi Tc99m Tilmanocept was inject ed in the upper outer aspect of the left nipple intradermally. The patient tolerated the procedure well without any immediate complication. The patient was kept in the radiology department for short stay after the procedure and then taken to surgery for surgical p rocedure what is presumed intraoperative gamma probe will be used for sentinel lymph node detection. IMPRESSION: Left breast radiotracer injection for sentinel node localization as above.
[2023-01-14] MEDS ORDERED: GLYCOPYRROLATE 0.2 MG/ML 2 ML VIAL ONE (13:19)
[2023-01-14] MEDS ORDERED: NEOSTIGMINE 1 MG/ML 10 ML VIAL ONE (13:19)
[2023-01-14] MEDS ORDERED: fentaNYL (PF) 50 MCG/ML 2 ML AMP ONE (13:19)
[2023-01-14] MEDS ORDERED: ROCURONIUM 10 MG/ML (5 ML VIAL) IV ONE (13:19)
[2023-01-14] MEDS ORDERED: PROPOFOL 10 MG/ML 20 ML VIAL IV ONE (13:19)
[2023-01-14] MEDS ORDERED: HYDROmorphone (PF) 1 MG/ML ONE (13:19)
[2023-01-14] MEDS ORDERED: KETAMINE 10 MG/ML 20 ML VIAL ONE (13:19)
[2023-01-14] MEDS ORDERED: LIDOCAINE 2% INJ 20 MG/ML (2 ML VIAL) ONE (13:19)
[2023-01-14] MEDS ORDERED: MIDAZOLAM 2 MG/2 ML VIAL ONE (13:19)
[2023-01-14] MEDS ORDERED: SODIUM CHLORIDE 0.9% 50 ML with ceFAZolin 2,000 MG IV ONE ×2 (13:19)
[2023-01-14] MEDS ORDERED: LACTATED RINGERS 1,000 ML IV ONE ×3 (14:20→19:37)
[2023-01-14] MEDS ORDERED: NALOXONE 0.4 MG/ML 1 ML VIAL IV PRN (16:09)
--- NOTE | 2023-01-14 16:09 | P.OP ---
Date of Procedure: 01/14/23 Preoperative Diagnosis: Left breast invasive ductal carcinoma status post neoadjuvant chemotherapy Postoperative Diagnosis: Same Procedure(s) Performed: Bilateral skin sparing mastectomy, left sentinel node biopsy, left sentinel node mapping with methylene blue Anesthesia: VIC Surgeon: Maxine Salinas Estimated Blood Loss (ml): 100 IV fluids (ml): 1,500 Pathology: other (Bilateral breast, left axillary tissue/[place] lymph node 2) Condition: stable Disposition: same day Indications for Procedure: Left breast invasive ductal carcinoma Operative Findings: Dense breast tissue, blue hot lymph node in the left axilla Description of Procedure: The patient was seen in the preoperative area by radiology for injection of the radiotracer was performed in the left periareolar region. She was then brought to the operative suite. Following induction of anesthesia 5 mL of half percent methylene blue was injected in the periareolar area and the breast was massaged. Both breast and the left axilla were prepped and draped in a sterile fashion. The right breast was approached initially. A periareolar incision was made and carried through the skin and subcutaneous tissue to the plane between the subcutaneous tissue and the breast tissue. Circumferential dissection was performed and dissection was performed down to the pectoralis muscle. The Port-A-Cath was present on the right side and care was made not to enter the space where the Port-A-Cath was located. After the area of the pectoralis muscle was reached the breast was taken from medial to lateral off the pectoralis muscle. Hemostasis was attained using the electrocautery device as well as the Harmonic scalpel. The breast was marked using a short suture superiorly and a long suture laterally. The wound was well irrigated. At this point the left side was approached. Again a circumareolar incision was made and carried through the skin and subcutaneous tissue to the plane between the subcutaneous tissue and the breast tissue. Circumferential dissection was performed and dissection was performed down to the pectoralis muscle. The dissection was carried off the pectoralis muscle from medial to lateral. Hemostasis was attained using electrocautery device as well as the Harmonic scalpel. The breast was removed and marked superiorly a short suture and laterally along suture. The area of the axilla was then approached. Using the neoprobe and area of increased radioactivity was identified. This was also noted to be a blue lymph node. The lymph node was identified and removed. The 10 second count on the l ymph node was 14,609. Following this a second area of radioactivity was identified and this lymph node was removed as well a 10 second count was 187 and did appear to be a small amount of tracer in this region as well. No discrete lymph node was seen at the site however. The additional axillary tissue was fibrotic and no palpable nodes of concern were identified. There was some increased radioactivity in deep fibrotic tissue near blood vessels and it was felt that this was not safe to dissect this area. Additionally no palpable nodes of concern were identified in this tissue. At this point Dr. Gabriel began his placement of his perpetual expanders.
[2023-01-14] MEDS ORDERED: BACITRACIN OINT 1 EACH PACKET TOPICAL ONE (16:38)
[2023-01-14] MEDS: HYDROmorphone 1 MG/ML 1 ML SYRINGE IVP PRN (20:23)
[2023-01-14] MEDS: SODIUM CHLORIDE 0.9% 1,000 ML IV SCH (20:48)
--- NOTE | 2023-01-14 23:29 | OP ---
OPERATIVE REPORT DATE OF SERVICE : 01/14/2023 PREOPERATIVE DIAGNOSES: 1. Acquired loss, right and left breast. 2. Invasive cancer, left breast. POSTOPERATIVE DIAGNOSES: 1. Acquired loss, left and right breast. 2. Invasive cancer, left breast. PROCEDURES PERFORMED: 1. Immediate reconstruction of right breast following mastectomy with insertion of tissue engine test cell technician, subsequent outpatient expansion. 2. Immediate reconstruction of left breast, following mastectomy with insertion of tissue engine test cell technician subsequent outpatient expansion. 3. Implantation of reconstructive graft for right and left breast reconstruction. INDICATIONS FOR PROCEDURE: The patient is a 32-year-old female with invasive cancer, left breast, has undergone neoadjuvant therapy. She is going to surgery today for left-sided therapeutic mastectomy and right-sided prophylactic mastectomy for treatment of her breast cancer. She has elected to proceed with immediate reconstruction following mastectomy procedures and has decided upon a tissue engine test cell technician style staged breast reconstruction technique. She is aware of potential risks and complications related to today's surgery including, but not limited to hematoma, seroma, wound healing problems, among others. She has requested to perform today's surgery. DESCRIPTION OF PROCEDURE: The patient was seen in the preoperative area, markings made, procedure reviewed. All questions answered. She was transported to the operating room where she was placed in the supine position. Following the induction of general endotracheal anesthesia, the patient was prepped and draped in usual fashion. Dr. Salinas, her surgical team initiated the right sided mastectomy procedure. Once the procedure was complete, I entered the operative suite, Dr. Salinas, her team began the left-sided mastectomy and left sentinel lymph node procedures. The right mastectomy wound was open with no active bleeding. The wound was irrigated. Additional dissection was required for optimal position of a prepectoral tissue engine test cell technician, which was the plan. Dissection was performed with cautery, elevates the skin, subcutaneous tissue off the muscle fascial layers were necessary. Once this dissection was completed, irrigations performed again. Hemostasis was optimal. The cavity was sized and a tissue engine test cell technician opened on the field. Both expanders today were the same from the Kngine model 133-FX- 15-T, 800 mL volume. Serial number for the right-sided device was [id number] and later when opened for the left-sided device [id number]. The engine test cell technician was open to the surgeon. All air extracted, irrigated with saline and then initially 600 mL of air instilled. The engine test cell technician was placed into the reconstructive cavity for test fit but this was too much volume. Ultimately, volume was reduced until reaching 400 mL which would allow for tension-free skin closure. The engine test cell technician was removed. We irrigated reconstructive graft now opened on the field. SurgiMend PRS measuring 10 x 20 square cm was opened and revitalized in room temperature saline, stretched multiple times and then used to cover the anterior surface of the engine test cell technician, securing to the 6 suture tab locations using interrupted 3-0 Vicryl suture. As the patient's breasts were quite symmetrical, the right-sided tissue engine test cell technician was opened on the field, serial number stated above again only handled by the surgeon. All air extracted, irrigated with saline and it was filled to a volume of 400 mL. A second piece of SurgiMend PRS mesh was opened on the field measuring 10 x 20 square centimeters, revitalized in room temperature saline, pre- stretched multiple times and then used to cover the anterior surface of the engine test cell technician as was done for the right-sided engine test cell technician securing the graft to the engine test cell technician suture tabs in 6 separate locations using 3-0 Vicryl suture. Once the left-sided mastectomy and sentinel lymph node procedures completed, I irrigated the left-sided mastectomy wound. Hemostasis was optimal. Additional dissection was required for optimal position of the engine test cell technician and this was completed with cautery as was done on the right side. The engine test cell technician was placed for test fit with 400 mL. This did allow for skin closure in a tension-free fashion. Both expanders were now placed in the reconstructive cavities. Once optimally positioned, they were secured to the chest wall at the 6 suture tab locations using interrupted 2-0 Vicryl sutures. Two 19 round Gilbert channel drains opened on the field, inserted in the reconstructive cavity on the right and left side and brought out through separate stab incisions in the right and left anterolateral chest wall both sutured in place with 2-0 Prolene and cut to appropriate length. The mastectomy skin incisions were now closed in transverse fashion approximating subcutaneous tissue using interrupted 4-0 Monocryl and then the deep dermis using inverted interrupted 4-0 Monocryl followed by closure of superficial dermis and epidermis with penelope. The surgical alberto were cleansed with saline and dried, and postoperative bandages were placed using bacitracin ointment, Adaptic, Kerlix gauze, drain sponges, secured with 3 Medipore tape, and then positioned a size 5 mammary support prior to awakening the patient. The patient was then extubated in the operating room and transferred to recovery room in good condition with stable vital signs. The estimated blood loss for this portion of the procedure is 35 mL. The final fill of each engine test cell technician was 400 mL of air. There were no complications. MMODL / IJN: [id number] /
[2023-01-15] MEDS ORDERED: ONDANSETRON 4 MG/2 ML VIAL IVP PRN (00:04)
[2023-01-15] MEDS: HEPARIN SODIUM,PORCINE/PF 5,000 UNIT/0.5 ML SYRINGE SQ SCH ×4 (00:29→22:54)
[2023-01-15] MEDS: HYDROcodone/APAP 5-325MG 1 EACH TAB PO PRN ×5 (00:41→20:56)
[2023-01-15] MEDS: LACTATED RINGERS 1,000 ML IV SCH (03:16)
[2023-01-15] MEDS: SODIUM CHLORIDE 0.9% 1,000 ML IV SCH ×3 (03:16→18:14)
[2023-01-15] MEDS: HYDROmorphone 1 MG/ML 1 ML SYRINGE IVP PRN ×5 (04:34→22:54)
[2023-01-15 07:48] LABS: Basophils % (A) 0 %; Eosinophils # (A) 0.1 k/uL (0-0.7); Eosinophils % (A) 1 %; HCT 31.9 % (34.0-46.0); HGB 10.7 gm/dL (11.4-16.0); Lymphocytes # (A) 0.7 k/uL (1.0-4.8); Lymphocytes % (A) 12 %; MCH 32.7 pg (25.0-35.0); MCHC 33.7 g/dL (31.0-37.0); MCV 97.1 fL (80.0-100.0); Mean Platelet Volume 7.1; Monocytes # (A) 0.3 k/uL (0-1.0); Monocytes % (A) 5 %; Neutrophils % (A) 80 %; Platelet Count 209 k/uL (150-450); RBC 3.28 m/uL (3.80-5.40); RDW 12.5 % (11.5-15.5); WBC 6.3 k/uL (3.8-10.6)
--- NOTE | 2023-01-15 09:49 | P.PN ---
Subjective Progress Note Date: 01/15/23 Principal diagnosis: Postop day #1 bilateral skin sparing mastectomies and left axillary node biopsy Yoko is a 32-year-old white female status post neoadjuvant chemotherapy. She underwent bilateral skin sparing mastectomies with a left sentinel node biopsy yesterday. Postoperatively she is doing well. She is tolerating her diet without difficulty. Hemoglobin is 10.7. ELMER output is serosanguineous. Objective - Vital Signs Vital signs: Vital Signs Temp 98.0 F 01/15/23 07:00 Pulse 100 01/15/23 07:00 Resp 19 01/15/23 07:00 BP 117/73 01/15/23 07:00 Pulse Ox 98 01/15/23 07:00 FiO2 8 01/14/23 18:13 Intake & Output 01/14/23 01/15/23 01/15/23 18:59 06:59 18:59 Intake Total 3050 1300 240 Output Total 385 65 Balance 2665 1235 240 Weight 92.9 kg 92.9 kg Intake: IV 3050 Intake, IV Titration 1300 Amount Sodium Chloride 0.9% 1, 1200 000 ml @ 100 mls/hr IV . Q10H ALANNAH Rx#:[id number] ceFAZolin 2 gm In Sodium 100 Chloride 0.9% 50 ml @ 100 mls/hr IVPB Q8H ALANNAH Rx#: [id number] Oral 240 Output: Drainage 65 Bilateral Breast, Left 20 Right Breast 45 Urine 250 Estimated Blood Loss 135 Other: # Voids 2 - Constitutional General appearance: Present: cooperative - EENT Eyes: Present: EOMI ENT: Present: hearing grossly normal - Neck Neck: Present: normal ROM - Respiratory Details: mild wheezing at lung bases bilateral - Cardiovascular Rhythm: regular Heart sounds: normal: S1, S2 - Integumentary Integumentary Comment(s): Incisions clean and dry bilateral - Psychiatric Psychiatric: Present: A&O x's 3, appropriate affect, intact judgment & insight - Labs CBC & Chem 7: 01/15/23 06:08 Labs: Abnormal Lab Results - Last 24 Hours (Table) 01/14/23 01/15/23 Range/Units 10:51 06:08 RBC 3.28 L (3.80-5.40) m/uL Hgb 10.7 L (11.4-16.0) gm/dL Hct 31.9 L (34.0-46.0) % Lymphocytes # 0.7 L (1.0-4.8) k/uL POC Glucose (mg/dL) 118 H (70-110) mg/dL Assessment and Plan Assessment: Impression: Patient postop day #1 bilateral skin sparing mastectomy with prepectoral implant reconstruction of left sentinel node biopsy Patient doing well postop day #1 tolerating diet without difficulty Pain is controlled with present medication Plan: Probable discharge home tomorrow Continue present pain management
[2023-01-16] MEDS: HYDROcodone/APAP 5-325MG 1 EACH TAB PO PRN (01:30)
[2023-01-16] MEDS: HYDROmorphone 1 MG/ML 1 ML SYRINGE IVP PRN ×2 (02:15→08:01)
[2023-01-16] MEDS: SODIUM CHLORIDE 0.9% 1,000 ML IV SCH (04:18)
[2023-01-16] MEDS: LACTATED RINGERS 1,000 ML IV SCH (05:01)
[2023-01-16 06:38] LABS: Basophils % (A) 0 %; Eosinophils # (A) 0.2 k/uL (0-0.7); Eosinophils % (A) 5 %; HCT 30.8 % (34.0-46.0); HGB 10.3 gm/dL (11.4-16.0); Lymphocytes % (A) 21 %; MCHC 33.5 g/dL (31.0-37.0); MCV 95.6 fL (80.0-100.0); Mean Platelet Volume 7.3; Monocytes # (A) 0.3 k/uL (0-1.0); Monocytes % (A) 7 %; Neutrophils % (A) 65 %; Platelet Count 182 k/uL (150-450); RBC 3.22 m/uL (3.80-5.40); RDW 12.8 % (11.5-15.5); WBC 4.7 k/uL (3.8-10.6)
--- NOTE | 2023-01-16 08:19 | P.PN ---
Subjective Progress Note Date: 01/16/23 Principal diagnosis: Postop day #2 bilateral skin sparing mastectomies and left axillary node biopsy Yoko is a 32-year-old white female status post neoadjuvant chemotherapy. She underwent bilateral skin sparing mastectomies with a left sentinel node biopsy POD 2. Postoperatively she is doing well. She is tolerating her diet without difficulty. Hemoglobin is 10.3. ELMER output is serosanguineous. Objective - Vital Signs Vital signs: Vital Signs Temp 98.7 F 01/16/23 02:02 Pulse 85 01/16/23 02:02 Resp 19 01/16/23 02:02 BP 121/76 01/16/23 02:02 Pulse Ox 93 L 01/16/23 02:02 FiO2 8 01/14/23 18:13 Intake & Output 01/15/23 01/16/23 01/16/23 18:59 06:59 18:59 Intake Total 480 2480 Output Total 150 80 Balance 330 2400 Intake: Intake, IV Titration 1200 Amount Sodium Chloride 0.9% 1, 1100 000 ml @ 100 mls/hr IV . Q10H ALANNAH Rx#:[id number] ceFAZolin 2 gm In Sodium 100 Chloride 0.9% 50 ml @ 100 mls/hr IVPB Q8H ALANNAH Rx#: [id number] Oral 480 1280 Output: Drainage 150 80 Bilateral Breast, Left 70 35 Right Breast 80 45 Other: # Voids 1 1 - Constitutional General appearance: Present: cooperative - EENT Eyes: Present: EOMI ENT: Present: hearing grossly normal - Neck Neck: Present: normal ROM - Respiratory Details: Decreased breath sounds at bases, patient encouraged to breathe deeply Respiratory: bilateral: CTA - Cardiovascular Rhythm: regular Heart sounds: normal: S1, S2 - Integumentary Integumentary Comment(s): Bilateral incisions clean and dry ELMER right 15 mL serosanguineous ELMER left 15 mL serosanguineous - Psychiatric Psychiatric: Present: A&O x's 3, appropriate affect, intact judgment & insight - Labs CBC & Chem 7: 01/16/23 05:28 Labs: Abnormal Lab Results - Last 24 Hours (Table) 01/16/23 Range/Units 05:28 RBC 3.22 L (3.80-5.40) m/uL Hgb 10.3 L (11.4-16.0) gm/dL Hct 30.8 L (34.0-46.0) % Assessment and Plan Assessment: Impression: Patient postop day #2 bilateral skin sparing mastectomy with prepectoral implant reconstruction left sentinel node biopsy Patient doing well postop day #2 tolerating diet without difficulty Pain is controlled with present medication Plan: Discharge home Teach patient drain care
--- NOTE | 2023-01-16 08:23 | P.DS ---
Providers Expected date of discharge: 01/14/23 Attending physician: Tanner Stafford Consults: 01/14/23 16:18 Consult Physician Routine Consulting Provider: Donn Pham Consult Reason/Comments: medical managment Do you want consulting provider notified?: Yes Primary care physician: Donn Pham [place] [facility] Course: Yoko is a 32-year-old white female status post bilateral skin sparing maste ctomies with a left sentinel node biopsy on . Postoperatively the patient initially had some difficulty with pain control which is improved at this time. She is doing well at this time and is ready for discharge. Plan - Discharge Summary Discharge Rx Participant: Yes New Discharge Prescriptions: New HYDROcodone/APAP 5-325MG [[place] 5] 1 - 2 each PO Q4H PRN #20 tab PRN Reason: Pain No Action Sertraline HCl [Zoloft] 100 mg PO BID Pantoprazole [Protonix] 40 mg PO DAILY busPIRone HCL 15 mg PO BID Cholecalciferol (Vitamin D3) [Vitamin D3 (125 MCG = 5,000 IU)] 125 mcg PO DAILY Cyanocobalamin (Vitamin B-12) [Vitamin B-12] 1,000 mcg PO DAILY OLANZapine [ZyPREXA] 2.5 mg PO HS busPIRone HCL 15 mg PO DAILY PRN PRN Reason: Anxiety Ibuprofen [Motrin] 800 mg PO Q8H PRN PRN Reason: Fever And/ Or Pain QUEtiapine [SEROquel] 50 mg PO BID Potassium Chloride [Klor-Con M10] 10 meq PO DAILY Cyclobenzaprine [Flexeril] 10 mg PO HS Butalb/Acetaminophen/Caffeine [Fioricet 50-300-40 mg Capsule] 1 each PO DAILY PRN PRN Reason: Pain Acetaminophen/Diphenhydramine [Tylenol PM 500-25mg] 1 tab PO HS PRN PRN Reason: Insomnia Cariprazine HCl [Vraylar] 3 mg PO DAILY Discharge Medication List Sertraline HCl [Zoloft] 100 mg PO BID 03/20/21 [History] Pantoprazole [Protonix] 40 mg PO DAILY 11/23/21 [History] busPIRone HCL 15 mg PO BID 04/22/22 [History] Cholecalciferol (Vitamin D3) [Vitamin D3 (125 MCG = 5,000 IU)] 125 mcg PO DAILY 08/01/22 [History] Cyanocobalamin (Vitamin B-12) [Vitamin B-12] 1,000 mcg PO DAILY 08/01/22 [History] OLANZapine [ZyPREXA] 2.5 mg PO HS 08/01/22 [History] Ibuprofen [Motrin] 800 mg PO Q8H PRN 11/08/22 [History] QUEtiapine [SEROquel] 50 mg PO BID 11/08/22 [History] busPIRone HCL 15 mg PO DAILY PRN 11/08/22 [History] Butalb/Acetaminophen/Caffeine [Fioricet 50-300-40 mg Capsule] 1 each PO DAILY PRN 12/06/22 [History] Cyclobenzaprine [Flexeril] 10 mg PO HS 12/06/22 [History] Potassium Chloride [Klor-Con M10] 10 meq PO DAILY 12/06/22 [History] Acetaminophen/Diphenhydramine [Tylenol PM 500-25mg] 1 tab PO HS PRN 01/09/23 [History] Cariprazine HCl [Vraylar] 3 mg PO DAILY 01/09/23 [History] HYDROcodone/APAP 5-325MG [[place] 5] 1 - 2 each PO Q4H PRN #20 tab 01/14/23 [Rx] Follow up Appointment(s)/Referral(s): Maxine Salinas MD [STAFF PHYSICIAN] - 1 Week Tanner Stafford MD [STAFF PHYSICIAN] - 1 Week Activity/Diet/Wound Care/Special Instructions: Do not drive until seen by Dr. Khan Teach patient drain care, drainage and recorded twice a day wear bra at all times Discharge Disposition: HOME SELF-CARE
[2023-01-16 09:09] VITALS: BP 122/80; PULSE 80; RESP 16; TEMP 98.3
[2023-01-16] MEDS: HEPARIN SODIUM,PORCINE/PF 5,000 UNIT/0.5 ML SYRINGE SQ SCH (09:26)
--- NOTE | 2023-01-17 07:47 | CONS ---
CONSULTATION CHIEF COMPLAINT: CA of the breast. HISTORY OF PRESENT ILLNESS: This lady is admitted for an elective bilateral mastectomy with reconstruction. She is in significant postoperative pain, but doing well. She is awake and alert. REVIEW OF SYSTEMS: Unremarkable other than her surgical pain. PHYSICAL EXAMINATION: VITAL SIGNS: Blood pressure is 129/85 with a pulse of 73, respirations of 22, and she is afebrile. GENERAL. She appeared to be somewhat uncomfortable, but she is awake and alert. HEENT: Head, ears, eyes, nose, mouth and throat were normal. CHEST: Difficult to exam due to the dressings. ABDOMEN: Slightly protuberant. EXTREMITIES: Normal. NEUROLOGICAL: She is intact. DIAGNOSIS: She is admitted to the hospital with diagnosis, 1. Carcinoma of the breast. PLAN: No change in medications and she is doing well and expects to go home tomorrow. MMODL / IJN: [id number] /
--- NOTE | 2023-01-17 08:02 | PN ---
PROGRESS NOTE DATE OF SERVICE: 01/16/2023 CHIEF COMPLAINT: Carcinoma of breast. HISTORY OF PRESENT ILLNESS: This lady is doing well and expects to go home today. She is still fairly uncomfortable. PHYSICAL EXAMINATION: CHEST: Clear. ABDOMEN: Soft, slightly protuberant, nontender. No masses. EXTREMITIES: Normal. IMPRESSION: CA of the breast status post bilateral mastectomy with reconstruction. PLAN: She is probably going home today, we will follow her as an outpatient as well. MMODL / IJN: [id number] /
== END 2023-01-16 12:13 | disposition home or self-care (01) ==
LOC: OR 09:46 → 4SSUR 09:46 → OR 16:51 → 4SSUR 01-16 12:13 → OR 01-16 12:13
PROVIDERS: ADMIT Plastic Surgery; ATTEND Plastic Surgery
DX: C50.412 Malignant neoplasm of upper-outer quadrant of left female breast (principal); N60.41 Mammary duct ectasia of right breast; G35 Multiple sclerosis; M32.9 Systemic lupus erythematosus, unspecified; F41.9 Anxiety disorder, unspecified; F31.9 Bipolar disorder, unspecified; I10 Essential (primary) hypertension; Z92.21 Personal history of antineoplastic chemotherapy; Z87.891 Personal history of nicotine dependence; Z79.899 Other long term (current) drug therapy; Z88.2 Allergy status to sulfonamides; Z80.3 Family history of malignant neoplasm of breast
CPT/HCPCS: 38792; 85025; 88307; 88341; 88342

== ENCOUNTER → 2023-01-24 | Outpatient (CLI) | payer OTHER ==
--- NOTE | 2023-01-24 14:19 | P.PN ---
Progress Note - Text Progress Note Date: 01/24/23 Yoko is status post bilateral mastectomy, left SNB with pre-pectoral implant reconstruction on 01-14-23. [place] revealed benign breast on the right side and on the left side invasive moderately differentiated ductal carcinoma with scar/fibrosis, histiocytes, hemosiderin and chronic inflammation consistent with neoadjuvant treatment-related changes and previous bypass biopsy site. Margins were negative for malignancy. Left sentinel lymph node was negative for metastatic disease Additional axillary tissue was removed no additional lymph nodes were identified. Physical examination: Lungs: Decreased breath sounds at the bases Heart: Regular rate and rhythm Incisions bilateral clean and dry ELMER output minimal serous in nature Impression: Patient doing well postoperatively Plan: Follow up with Dr. Gabriel Follow-up medical oncology Follow-up radiation oncology Follow-up here in 3 weeks CC: DR. Pham
[2023-01-24 14:28] VITALS: BP 131/86; PULSE 68; RESP 17; TEMP 98.9
== END ==
LOC: WWCWWP 13:49
PROVIDERS: ATTEND Surgery
DX: Z85.3 Personal history of malignant neoplasm of breast (principal); Z91.048 Other nonmedicinal substance allergy status; Z88.2 Allergy status to sulfonamides; F17.200 Nicotine dependence, unspecified, uncomplicated

== ENCOUNTER → 2023-02-13 | Outpatient (CLI) | payer OTHER ==
--- NOTE | 2023-02-13 11:46 | P.PN ---
Progress Note - Text Progress Note Date: 02/13/23 Yoko is status post bilateral mastectomy, left SNB with pre-pectoral implant reconstruction on 01-14-23. Pathology revealed benign breast on the right side and on the left side invasive moderately differentiated ductal carcinoma with scar/fibrosis, histiocytes, hemosiderin and chronic inflammation consistent with neoadjuvant treatment-related changes and previous bypass biopsy site. Margins were negative for malignancy. When she noticed that her left breast was brought. She has a low-grade temperature at 99.5. She will see Dr. Yu tomorrow. Left sentinel lymph node was negative for metastatic disease Additional axillary tissue was removed no additional lymph nodes were ident ified. Physical examination: Lungs: Decreased breath sounds at the bases Heart: Regular rate and rhythm Incisions bilateral clean and dry, mild erythema at the superior aspect of the lateral portion of the left breast incision ELMER drains have been removed Impression: Patient noticed redness of the left breast today when she took a shower, mild erythema Plan: Follow up with Dr. Gabriel tomorrow Follow-up medical oncology, sees them on February 21 Follow-up radiation oncology, needs to set this up start on Keflex CC: DR. Pham
[2023-02-13 13:18] VITALS: BP 118/88; PULSE 130; RESP 18; TEMP 99.5
== END ==
LOC: WWCWWP 11:20
PROVIDERS: ATTEND Surgery
DX: Z85.3 Personal history of malignant neoplasm of breast (principal); Z88.2 Allergy status to sulfonamides; F17.200 Nicotine dependence, unspecified, uncomplicated; Z91.018 Allergy to other foods

== ENCOUNTER 2023-02-18 01:01 | Inpatient (IN) | payer OTHER ==
[2023-02-18] MEDS ORDERED: SODIUM CHLORIDE 0.9% 1,000 ML IV ONE (02:26)
[2023-02-18] MEDS ORDERED: MORPHINE SULFATE 4 MG/ML SYRINGE IVP STA (02:26)
[2023-02-18] MEDS ORDERED: ONDANSETRON 4 MG/2 ML VIAL IVP STA (02:26)
[2023-02-18] MEDS ORDERED: VANCOMYCIN 1,500 MG in SODIUM CHLORIDE 0.9% 500 ML 500 ML IVPB STA (02:28)
[2023-02-18] MEDS ORDERED: VANCOMYCIN IV PER PHARMACY 1 EACH MISC MISCELLANE PRN (02:31)
--- NOTE | 2023-02-18 02:57 | ED ---
General Adult HPI - General Chief complaint: Fever Stated complaint: post op infection Time Seen by Provider: 02/18/23 02:04 Source: patient Mode of arrival: wheelchair Limitations: no limitations - History of Present Illness Initial comments: This is a 32-year-old female with a past mental history including MS, lupus and breast cancer status post bilateral mastectomy on 01/14/2023 presents emergency department for worsening infection and swelling and drainage to the left breast. The patient reported that her breast is currently under close observation for recent infection and she is on Keflex. The patient did report that throughout the evening tonight, she had swelling of the left breast that started to drain significant amount of purulent fluid. Advice was also popping through one of the incision sites and she had continued pain and discomfort. The patient was to follow-up with her surgeon this week however stated that the pain became so severe she needed to come to the emergency department. The patient did report fevers and chills. The patient also stated that she was nauseous. The patient denied any other acute pain or complaints and denied any trauma to the breast. The right breast was minimally tender to palpation however denied any signs of infection at this time. - Related Data Home Medications Medication Instructions Recorded Confirmed Sertraline HCl [Zoloft] 100 mg PO BID 03/20/21 02/13/23 Pantoprazole [Protonix] 40 mg PO DAILY 11/23/21 02/13/23 busPIRone HCL 15 mg PO BID 04/22/22 02/13/23 Cholecalciferol (Vitamin D3) 125 mcg PO DAILY 08/01/22 02/13/23 [Vitamin D3 (125 MCG = 5,000 IU)] Cyanocobalamin (Vitamin B-12) 1,000 mcg PO DAILY 08/01/22 02/13/23 [Vitamin B-12] OLANZapine [ZyPREXA] 2.5 mg PO HS 08/01/22 02/13/23 Ibuprofen [Motrin] 800 mg PO Q8H PRN 11/08/22 02/13/23 QUEtiapine [SEROquel] 50 mg PO BID 11/08/22 02/13/23 busPIRone HCL 15 mg PO DAILY PRN 11/08/22 02/13/23 Butalb/Acetaminophen/Caffeine 1 each PO DAILY PRN 12/06/22 02/13/23 [Fioricet 50-300-40 mg Capsule] Cyclobenzaprine [Flexeril] 10 mg PO HS 12/06/22 02/13/23 Potassium Chloride [Klor-Con M10] 10 meq PO DAILY 12/06/22 02/13/23 Acetaminophen/Diphenhydramine 1 tab PO HS PRN 01/09/23 02/13/23 [Tylenol PM 500-25mg] Cariprazine HCl [Vraylar] 3 mg PO DAILY 01/09/23 02/13/23 Previous Rx's Medication Instructions Recorded Acetaminophen-Codeine 300-30mg 1 tab PO Q6H PRN 3 Days #24 tablet 01/16/23 [Tylenol w/codeine #3] Cephalexin [Keflex] 500 mg PO Q6HR 1 Days #20 cap 02/13/23 Allergies Allergy/AdvReac Type Severity Reaction Status Date / Time aloe Allergy severe Verified 02/18/23 01:13 itching Sulfa (Sulfonamide Allergy Anaphylaxis Verified 02/18/23 01:13 Antibiotics) Review of Systems ROS Statement: Those systems with pertinent positive or pertinent negative responses have been documented in the HPI. ROS Other: All systems not noted in ROS Statement are negative. Past Medical History Past Medical History: Cancer, CVA/TIA, Hypertension, Osteoarthritis (OA), Vascular Disorder Additional Past Medical History / Comment(s): MS, States hx. head injury 03-15-20,heart murmur,no Rx for htn,varicose veins, carpal tunnel wrist and elbows,bruises easily, vertigo, Breast CA, current chemo, lupus, anemia, with head injury tia, lft facial droop very slight, will be worked up for fibromayalgia once done with ca tx. History of Any Multi-Drug Resistant Organisms: MRSA Date of last positivie culture/infection: 2004.2021 MDRO Source:: right breast lft breast Past Surgical History: Breast Surgery, Cholecystectomy, Tubal Ligation Additional Past Surgical History / Comment(s): She has 4 children by natural childbirth. Lt breast biopsy. 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 grandfather & 2 cousins dx. with hemophilia. General Exam Limitations: no limitations General appearance: alert, in no apparent distress Head exam: Present: atraumatic, normocephalic, normal inspection Eye exam: Present: normal appearance, PERRL Pupils: Present: normal accommodation ENT exam: Present: normal exam, normal oropharynx, mucous membranes moist Neck exam: Present: normal inspection, full ROM Respiratory exam: Present: normal lung sounds bilaterally Cardiovascular Exam: Present: normal rhythm, tachycardia, normal heart sounds GI/Abdominal exam: Present: soft, normal bowel sounds Extremities exam: Present: normal inspection, full ROM Back exam: Present: normal inspection, full ROM Neurological exam: Present: alert, oriented X3, CN II-XII intact Psychiatric exam: Present: normal affect, normal mood Skin exam: Present: warm, dry, other (Right breast incision, clear, dry and intact. Left breast incision was erythematous and swollen with significant amount of purulent drainage noted. There was also a portion of the spacer device protruding through the incision) Course Vital Signs 02/18/23 02/18/23 02/18/23 01:13 03:03 04:46 Temperature 98.7 F Pulse Rate 131 H 93 83 Respiratory 16 16 Rate Blood Pressure 119/77 119/80 O2 Sat by Pulse 98 95 Oximetry EKG Findings - EKG Comments: EKG Findings:: An EKG was obtained and was interpreted by myself showing a rate of 94, WA interval 138, QRS duration of 90 and QTC of 406. This EKG showed a normal sinus rhythm with no ST segment elevation or depression noted. Medical Decision Making - Medical Decision Making Was pt. sent in by a medical professional or institution (, PA, TAPING FOREMAN, urgent care, hospital, or [place] health care facility...) When possible be specific @ -No Did you speak to anyone other than the patient for history (EMS, parent, family, police, friend...)? What history was obtained from this source @ -No Did you review nursing and triage notes (agree or disagree)? Why? @ -I reviewed and agree with nursing and triage notes Were old charts reviewed (outside hosp., previous admission, EMS record, old EKG, old radiological studies, urgent care reports/EKG's, [place] health care facility records)? Report findings @ -No old charts were reviewed Differential Diagnosis (chest pain, altered mental status, abdominal pain women, abdominal pain men, vaginal bleeding, weakness, fever, dyspnea, syncope, headache, dizziness, GI bleed, back pain, seizure, CVA, palpatations, mental health)? @ -Postop infection, wound dehiscence, abscess EKG interpreted by me (3pts min.). @ -As above X-rays interpreted by me (1pt min.). @ -None done CT interpreted by me (1pt min.). @ -None done U/S interpreted by me (1pt. min.). @ -None done What testing was considered but not performed or refused? (CT, X-rays, U/S, labs)? Why? @ -A breast ultrasound was considered at this time however the patient had obvious infection noted and was draining therefore was not required at this time. What meds were considered but not given or refused? Why? @ -None Did you discuss the management of the patient with other professionals (professionals i.e. , PA, TAPING FOREMAN, lab, RT, psych nurse, group social worker, senior technical editor, teacher, deck officer, director of casework services)? Give summary @ -Yes, admitting physician was contacted regarding patient admission. Was smoking cessation discussed for >3mins.? @ -No Was critical care preformed (if so, how long)? @ -No Were there social determinants of health that impacted care today? How? (Homelessness, low income, unemployed, alcoholism, drug addiction, transportation, low edu. Level, literacy, decrease access to med. care, usp, rehab)? @ -No Was there de-escalation of care discussed even if they declined (Discuss DNR or withdrawal of care, Hospice)? DNR status @ -No What co-morbidities impacted this encounter? (DM, HTN, Smoking, COPD, CAD, Cancer, CVA, ARF, Chemo, Hep., AIDS, mental health diagnosis, sleep apnea, morbid obesity)? @ -MS, lupus, breast cancer status post mastectomy Was patient admitted / discharged? Hospital course, mention meds given and route, prescriptions, significant lab abnormalities, going to OR and other pertinent info. @ -The patient was seen and evaluated emergency department. Physical exam, the patient was resting in bed initially with moderate distress secondary to pain. There was active drainage noted to the left breast and pain with palpation with surrounding induration and erythema. Vital signs admission were however stable. Full laboratory workup including blood cultures were obtained at this time. The patient did receive 2 g of vancomycin IV after the blood cultures were obtained. The patient received 1 L no saline fluid, Zofran as well as morphine. The patient did have improvement on reevaluation. The patient's laboratory workup were largely within normal limits however due to the patient's significant postop wound infection and wound dehiscence, the patient will be admitted for further workup and evaluation with breast surgery on consult. The patient did require a second dose of nausea medications and on reevaluation had improvement of her symptoms. The patient was agreeable to this plan and was admitted in stable condition. Undiagnosed new problem with uncertain prognosis? @ -No Drug Therapy requiring intensive monitoring for toxicity (Heparin, Nitro, Insulin, Cardizem)? @ -No Were any procedures done? @ -No Diagnosis/symptom? @ -Postop wound infection, wound dehiscence Acute, or Chronic, or Acute on Chronic? @ -Acute Uncomplicated (without systemic symptoms) or Complicated (systemic symptoms)? @ -Complicated Side effects of treatment? @ -No Exacerbation, Progression, or Severe Exacerbation? @ -No Poses a threat to life or bodily function? How? (Chest pain, [place], [place], pneumonia, PE, COPD, DKA, ARF, appy, cholecystitis, CVA, Diverticulitis, Homicidal, Suicidal, threat to staff... and all critical care pts) @ -Yes, continued infection and wound dehiscence can lead to further worsening infection and sepsis leading to potential . - Lab Data Result diagrams: 02/18/23 02:20 02/18/23 02:20 Lab Results 02/18/23 02/18/23 02/18/23 Range/Units 02:20 02:20 02:20 WBC 10.5 (3.8-10.6) k/uL RBC 4.53 (3.80-5.40) m/uL Hgb 13.9 D (11.4-16.0) gm/dL Hct 41.2 (34.0-46.0) % MCV 91.1 (80.0-100.0) fL MCH 30.7 (25.0-35.0) pg MCHC 33.7 (31.0-37.0) g/dL RDW 12.2 (11.5-15.5) % Plt Count 434 D (150-450) k/uL MPV 7.6 Neutrophils % 86 % Lymphocytes % 5 % Monocytes % 7 % Eosinophils % 2 % Basophils % 0 % Neutrophils # 9.0 H (1.3-7.7) k/uL Lymphocytes # 0.5 L (1.0-4.8) k/uL Monocytes # 0.7 (0-1.0) k/uL Eosinophils # 0.2 (0-0.7) k/uL Basophils # 0.0 (0-0.2) k/uL Sodium 134 L (137-145) mmol/L Potassium 4.4 (3.5-5.1) mmol/L Chloride 94 L (98-107) mmol/L Carbon Dioxide 25 (22-30) mmol/L Anion Gap 15 mmol/L BUN 6 L (7-17) mg/dL Creatinine 0.62 (0.52-1.04) mg/dL Est GFR (CKD-EPI)AfAm >90 (>60 ml/min/1.73 sqM) Est GFR (CKD-EPI)NonAf >90 (>60 ml/min/1.73 sqM) Glucose 149 H (74-99) mg/dL Plasma Lactic Acid Shen 1.7 (0.7-2.0) mmol/L Calcium 8.9 (8.4-10.2) mg/dL Total Bilirubin 0.9 (0.2-1.3) mg/dL AST 54 H (14-36) U/L ALT 72 H (4-34) U/L Alkaline Phosphatase 170 H (38-126) U/L C-Reactive Protein 8.5 H (<1.0) mg/dL Total Protein 8.0 (6.3-8.2) g/dL Albumin 4.1 (3.5-5.0) g/dL Disposition Clinical Impression: Post op infection, Wound dehiscence Disposition: ADMITTED IP TO THIS HOSP Condition: Stable Is patient prescribed a controlled substance at d/c from ED?: No Referrals: Donn Pham MD [Primary Care Provider] - 1-2 days Time of Disposition: 03:45 Decision to Admit Reason: Admit from EC Decision Date: 02/18/23 Decision Time: 03:45
[2023-02-18 03:11] LABS: ALT 72 U/L (4-34); AST 54 U/L (14-36); African American GFR (CKD) >90 (>60 ml/min/1.73 sqM); Albumin 4.1 g/dL (3.5-5.0); Alkaline Phosphatase 170 U/L (38-126); Anion Gap 15 mmol/L; Blood Urea Nitrogen 6 mg/dL (7-17); C Reactive Protein 8.5 mg/dL (<1.0); Calcium 8.9 mg/dL (8.4-10.2); Carbon Dioxide 25 mmol/L (22-30); Chloride 94 mmol/L (98-107); Glucose 149 mg/dL (74-99); Non-African American GFR(CKD) >90 (>60 ml/min/1.73 sqM); Sodium 134 mmol/L (137-145); Total Bilirubin 0.9 mg/dL (0.2-1.3)
[2023-02-18 03:41] LABS: Basophils % (A) 0 %; Eosinophils # (A) 0.2 k/uL (0-0.7); Eosinophils % (A) 2 %; HCT 41.2 % (34.0-46.0); Lymphocytes # (A) 0.5 k/uL (1.0-4.8); Lymphocytes % (A) 5 %; MCH 30.7 pg (25.0-35.0); MCHC 33.7 g/dL (31.0-37.0); MCV 91.1 fL (80.0-100.0); Mean Platelet Volume 7.6; Monocytes # (A) 0.7 k/uL (0-1.0); Monocytes % (A) 7 %; Neutrophils % (A) 86 %; RBC 4.53 m/uL (3.80-5.40); RDW 12.2 % (11.5-15.5); WBC 10.5 k/uL (3.8-10.6)
[2023-02-18 03:42] LABS: Potassium 4.4 mmol/L (3.5-5.1)
[2023-02-18 03:44] LABS: HGB 13.9 gm/dL (11.4-16.0)
[2023-02-18 03:45] LABS: Platelet Count 434 k/uL (150-450)
[2023-02-18] MEDS ORDERED: NALOXONE 0.4 MG/ML 1 ML VIAL IV PRN (04:46)
[2023-02-18] MEDS ORDERED: PROCHLORPERAZINE INJ 10 MG/2 ML VIAL IVP STA (04:46)
[2023-02-18] MEDS ORDERED: ONDANSETRON 4 MG/2 ML VIAL IVP PRN (04:46)
[2023-02-18] MEDS ORDERED: diphenhydrAMINE 50 MG/ML 1 ML VIAL IVP STA (04:46)
[2023-02-18 05:10] LABS: Appearance,Urine Clear (Clear); Bacteria,Urine Many /hpf; Bilirubin,Urine Negative (Negative); Blood,Urine Negative (Negative); Budding Yeast,Urine Occasional /hpf; Color,Urine Yellow; Glucose,Urine (UA) Negative (Negative); Ketones,Urine Negative (Negative); Leukocyte Esterase,Urine Small (Negative); Mucus,Urine Moderate /hpf; Nitrite,Urine Negative (Negative); Protein,Urine Negative (Negative); RBC,Urine 2 /hpf (0-5); Specific Gravity,Urine 1.011 (1.001-1.035); Squamous Epithelial Cell,Urine 5 /hpf (0-4); Urobilinogen,Urine <2.0 mg/dL (<2.0); WBC,Urine 11 /hpf (0-5)
[2023-02-18] MEDS: SODIUM CHLORIDE 0.9% 1,000 ML IV SCH ×2 (05:11→21:27)
[2023-02-18] MEDS: MORPHINE SULFATE 4 MG/ML SYRINGE IV PRN ×3 (08:32→22:15)
[2023-02-18] MEDS: VANCOMYCIN 1,500 MG in SODIUM CHLORIDE 0.9% 500 ML 500 ML IVPB SCH ×2 (12:00→21:19)
[2023-02-18] MEDS ORDERED: busPIRone HCl 5 MG TAB PO PRN (12:34)
[2023-02-18] MEDS ORDERED: BUTALB/APAP/CAFF 50-325-40MG TAB PO PRN (12:34)
[2023-02-18] MEDS ORDERED: LACTATED RINGERS 1,000 ML IV ONE (14:07)
[2023-02-18] MEDS ORDERED: ONDANSETRON 4 MG/2 ML VIAL IVP ONE (14:30)
[2023-02-18] MEDS ORDERED: DEXAMETHASONE SOD PHOSPHATE 4 MG/ML 1 ML VIAL IVP ONE (14:32)
[2023-02-18] MEDS ORDERED: GLYCOPYRROLATE 0.2 MG/ML 2 ML VIAL ONE (14:51)
[2023-02-18] MEDS ORDERED: HEPARIN SODIUM,PORCINE 5,000 UNIT/ML 1 ML VIAL ONE (14:51)
[2023-02-18] MEDS ORDERED: ROCURONIUM 10 MG/ML (5 ML VIAL) IV ONE (14:51)
[2023-02-18] MEDS ORDERED: MIDAZOLAM 2 MG/2 ML VIAL ONE (14:51)
[2023-02-18] MEDS ORDERED: PROPOFOL 10 MG/ML 20 ML VIAL IV ONE (14:51)
[2023-02-18] MEDS ORDERED: NEOSTIGMINE 1 MG/ML 10 ML VIAL ONE (14:51)
[2023-02-18] MEDS ORDERED: LIDOCAINE 2% INJ 20 MG/ML (2 ML VIAL) ONE (14:51)
[2023-02-18] MEDS ORDERED: fentaNYL (PF) 50 MCG/ML 2 ML AMP ONE (14:51)
--- NOTE | 2023-02-18 15:08 | P.GSHP ---
History of Present Illness H&P Date: 02/18/23 Chief Complaint: Infected left breast implant Yoko is a 32-year-old white female status post bilateral mastectomy and [id number]. She underwent bilateral prepectoral implant reconstruction. Approximately one week ago she began complaining of erythema of the left breast. She was started on Keflex. Despite this she developed fevers and was seen in the emergency department with drainage from the area of the left breast incision. She also been seen by plastic surgery and cultures have been obtained. These results are pending. The patient has been seen by infectious disease and started on vancomycin. Past surgical history: Cholecystectomy Tubal ligation Bilateral mastectomy with implant reconstruction Port-A-Cath placement Medical history: Breast cancer CVA/TIA Hypertension Osteoarthritis Vascular disorder Multiple sclerosis Anxiety/bipolar/depression/PTSD Patient does have a history of MRSA in the past Social history: Alcohol: Negative Nicotine: Salazar Drugs: Uses TCH vape pen Review of systems: HEENT: MS Lungs: Short of breath at times Cardiac: Has had workup for chest pain in the past GI: Peptic ulcer disease Neurologic: Straight of CVA/TIA History of multiple sclerosis Psychiatric: Anxiety/depression/bipolar/PTSD - Constitutional Constitutional: Reports as per HPI - Breasts Breasts: bilateral: as per HPI (Left breast invasive ductal carcinoma) - Cardiovascular Cardiovascular: Reports chest pain, Reports high blood pressure - Respiratory Respiratory: Reports as per HPI - Gastrointestinal Comment: History of peptic ulcer disease - Genitourinary (Female) Genitourinary: Denies dysuria, Denies hematuria - Musculoskeletal Musculoskeletal: Reports myalgias - Integumentary Integumentary: Reports as per HPI - Neurological Neurological: Reports as per HPI - Psychiatric Comment: Bipolar/posttraumatic stress disease Psychiatric: Reports anxiety, Reports depression - Hematologic/Lymphatic Hematologic/Lymphatic: Reports as per HPI - Allergic/Immunologic Allergic/Immunologic: Reports as per HPI Past Medical History Past Medical History: Cancer, CVA/TIA, Hypertension, Osteoarthritis (OA), Vascular Disorder Additional Past Medical History / Comment(s): MS, States hx. head injury 6-20,heart murmur,no Rx for htn,varicose veins, carpal tunnel wrist and elbows,bruises easily, vertigo, Breast CA, current chemo, lupus, anemia, with head injury tia, lft facial droop very slight, will be worked up for fibromayalgia once done with ca tx. History of Any Multi-Drug Resistant Organisms: MRSA Date of last positivie culture/infection: MDRO Source:: right breast lft breast Past Surgical History: Breast Surgery, Cholecystectomy, Tubal Ligation Additional Past Surgical History / Comment(s): She has 4 children by natural childbirth. Lt breast biopsy. 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 grandfather & 2 cousins dx. with hemophilia. Medications and Allergies Home Medications Medication Instructions Recorded Confirmed Type Sertraline HCl [Zoloft] 100 mg PO BID 03/20/21 02/18/23 History Pantoprazole [Protonix] 40 mg PO DAILY 11/23/21 02/18/23 History busPIRone HCL 15 mg PO BID 04/22/22 02/18/23 History Cholecalciferol (Vitamin D3) 125 mcg PO DAILY 08/01/22 02/18/23 History [Vitamin D3 (125 MCG = 5,000 IU)] Cyanocobalamin (Vitamin B-12) 1,000 mcg PO DAILY 08/01/22 02/18/23 History [Vitamin B-12] OLANZapine [ZyPREXA] 2.5 mg PO HS 08/01/22 02/18/23 History Ibuprofen [Motrin] 800 mg PO Q8H PRN 11/08/22 02/18/23 History QUEtiapine [SEROquel] 50 mg PO HS 11/08/22 02/18/23 History busPIRone HCL 15 mg PO DAILY PRN 11/08/22 02/18/23 History Butalb/Acetaminophen/Caffeine 1 cap PO DAILY PRN 12/06/22 02/18/23 History [Fioricet 50-300-40 mg Capsule] Cyclobenzaprine [Flexeril] 10 mg PO HS 12/06/22 02/18/23 History Potassium Chloride [Klor-Con M10] 10 meq PO DAILY 12/06/22 02/18/23 History Acetaminophen/Diphenhydramine 1 tab PO HS PRN 01/09/23 02/18/23 History [Tylenol PM 500-25mg] Cariprazine HCl [Vraylar] 3 mg PO DAILY 01/09/23 02/18/23 History Acetaminophen-Codeine 300-30mg 1 tab PO Q6H PRN 3 Days #24 tablet 01/16/23 02/18/23 Rx [Tylenol w/codeine #3] Cephalexin [Keflex] 500 mg PO Q6HR 1 Days #20 cap 02/13/23 02/18/23 Rx Cyclobenzaprine [Flexeril] 10 mg PO TID 02/18/23 02/18/23 History Allergies Allergy/AdvReac Type Severity Reaction Status Date / Time aloe Allergy severe Verified 02/18/23 07:29 itching Sulfa (Sulfonamide Allergy Anaphylaxis Verified 02/18/23 07:29 Antibiotics) Surgical - Exam Vital Signs Temp Pulse Resp BP Pulse Ox 98.7 F 131 H 16 119/77 98 02/18/23 01:13 02/18/23 01:13 02/18/23 01:13 02/18/23 01:13 02/18/23 01:13 - General no distress - Eyes normal ocular movement - ENT no hearing loss - Neck trachea midline - Respiratory normal respiratory effort, clear to auscultation - Cardiovascular Rhythm: regular Heart Sounds: normal: S1, S2 - Abdomen Abdomen: soft - Integumentary Incision clean and dry and healing well Left incision of the breast was opened with the implant starting to protrude with some purulent drainage - Psychiatric oriented to time, oriented to person, oriented to place, speech is normal, memory intact Results - Labs 02/18/23 02:20 02/18/23 02:20 Abnormal Lab Results - Last 24 Hours (Table) 02/18/23 02/18/23 02/18/23 Range/Units 02:20 02:20 04:25 Neutrophils # 9.0 H (1.3-7.7) k/uL Lymphocytes # 0.5 L (1.0-4.8) k/uL Sodium 134 L (137-145) mmol/L Chloride 94 L (98-107) mmol/L BUN 6 L (7-17) mg/dL Glucose 149 H (74-99) mg/dL AST 54 H (14-36) U/L ALT 72 H (4-34) U/L Alkaline Phosphatase 170 H (38-126) U/L C-Reactive Protein 8.5 H (<1.0) mg/dL Ur Leukocyte Esterase Small H (Negative) Urine WBC 11 H (0-5) /hpf Urine WBC Clumps Rare H (None) /hpf Ur Squamous Epith Cells 5 H (0-4) /hpf Urine Bacteria Many H (None) /hpf Urine Mucus Moderate H (None) /hpf Urine Yeast (Budding) Occasional H (None) /hpf Diabetes panel 02/18/23 Range/Units 02:20 Sodium 134 L (137-145) mmol/L Potassium 4.4 (3.5-5.1) mmol/L Chloride 94 L (98-107) mmol/L Carbon Dioxide 25 (22-30) mmol/L BUN 6 L (7-17) mg/dL Creatinine 0.62 (0.52-1.04) mg/dL Glucose 149 H (74-99) mg/dL Calcium 8.9 (8.4-10.2) mg/dL AST 54 H (14-36) U/L ALT 72 H (4-34) U/L Alkaline Phosphatase 170 H (38-126) U/L Total Protein 8.0 (6.3-8.2) g/dL Albumin 4.1 (3.5-5.0) g/dL Calcium panel 02/18/23 Range/Units 02:20 Calcium 8.9 (8.4-10.2) mg/dL Albumin 4.1 (3.5-5.0) g/dL Pituitary panel 02/18/23 Range/Units 02:20 Sodium 134 L (137-145) mmol/L Potassium 4.4 (3.5-5.1) mmol/L Chloride 94 L (98-107) mmol/L Carbon Dioxide 25 (22-30) mmol/L BUN 6 L (7-17) mg/dL Creatinine 0.62 (0.52-1.04) mg/dL Glucose 149 H (74-99) mg/dL Calcium 8.9 (8.4-10.2) mg/dL Adrenal panel 02/18/23 Range/Units 02:20 Sodium 134 L (137-145) mmol/L Potassium 4.4 (3.5-5.1) mmol/L Chloride 94 L (98-107) mmol/L Carbon Dioxide 25 (22-30) mmol/L BUN 6 L (7-17) mg/dL Creatinine 0.62 (0.52-1.04) mg/dL Glucose 149 H (74-99) mg/dL Calcium 8.9 (8.4-10.2) mg/dL Total Bilirubin 0.9 (0.2-1.3) mg/dL AST 54 H (14-36) U/L ALT 72 H (4-34) U/L Alkaline Phosphatase 170 H (38-126) U/L Total Protein 8.0 (6.3-8.2) g/dL Albumin 4.1 (3.5-5.0) g/dL Assessment and Plan Assessment: Impression: Infected left breast prepectoral implant Plan: I discussed the case with Dr. Gabriel, cultures were obtained in his office and these are pending The plan is for removal of the implant irrigation of the wound and packing Risks and benefits of the procedure discussed with the patient and her mother. She understands that the implant would be removed and left open.
--- NOTE | 2023-02-18 15:32 | P.OP ---
Date of Procedure: 02/18/23 Preoperative Diagnosis: Infected left breast implant Postoperative Diagnosis: Same Procedure(s) Performed: Removal of infected left breast implant/irrigation of the wound Anesthesia: RENEEA Surgeon: Maxine Salinas Estimated Blood Loss (ml): 10 IV fluids (ml): 300 Pathology: other (implant) Condition: stable Disposition: floor Indications for Procedure: Infected/extruding left breast implant Operative Findings: Infected left breast implant Description of Procedure: The patient is a 32-year-old white female status post bilateral mastectomy with prepectoral implant reconstruction and [id number]. Approximately a week ago she noticed some erythema of the left incision site and began having some drainage from that area. Cultures were obtained and her plastic surgeon's office which are not available to us at this time. The patient presented to the emergency department last night with complaints of a portion of the implant extruding, fevers, and drainage from the incision site and pain on the left breast. She is not complaining of any changes in the right breast. The case was discussed with Dr. Gabriel from plastic surgery was felt that the implant should be removed. Skin benefits were discussed with the patient her mother and she was scheduled for left implant removal. The patient was taken to the operating room. Following induction of anesthesia the left breast was prepped and draped in a sterile fashion. [place] were removed. The implant was extruded. There was noted to be about 300 mL of purulent fluid. The cavity was irrigated with approximately 1 L of saline using the pulse automotive service technician. After this the wound was examined for hemostasis. After assured that hemostasis was attained Surgicel and pyriform was placed. The wound was packed using dry Kerlix. Cultures were obtained. The implant was sent to pathology. The patient tolerated the procedure in stable condition. She is admitted for IV antibiotic therapy as per infectious disease. She will follow with Dr. Gabriel as well as Dr. Khan.
[2023-02-18] MEDS ORDERED: CYCLOBENZAPRINE 10 MG TAB PO SCH (16:00)
[2023-02-18] MEDS: busPIRone HCl 5 MG TAB PO SCH (21:27)
[2023-02-18] MEDS: CYCLOBENZAPRINE 10 MG TAB PO SCH (21:27)
[2023-02-18] MEDS: QUEtiapine 50 MG TAB PO SCH (21:27)
[2023-02-18] MEDS: SERTRALINE 100 MG TAB PO SCH (21:27)
--- NOTE | 2023-02-18 21:42 | P.CONS ---
History of Present Illness - Reason for Consult Consult date: 02/18/23 Left breast surgical site infection Requesting physician: oDnn Pham - Chief Complaint Left breast pain swelling and drainage x few days - History of Present Illness Patient is a 32-year-old female with a past medical history significant for breast cancer in this patient who is status post bilateral mastectomy completed on 01/14/2023 along with bilateral prepectoral implant reconstruction patient is presenting to the hospital with increasing pain swel ling redness and drainage especially to the left breast area patient describing the pain to be sharp almost 10 of 10 in severity without any radiation minimal drainage patient apparently has been treated with oral Keflex without any improvement patient on presentation to the hospital was afebrile and no fever has been recorded subsequently patient did have a normal white count kidney function has been normal liver enzymes are elevated urine has been mildly positive blood cultures obtained which are currently pending patient was started on vancomycin infectious disease was consulted for further management of antibiotic therapy Review of Systems Positive point and negatives has been mentioned in the HPI, complete review of systems was performed and all other systems are negative Past Medical History Past Medical History: Cancer, CVA/TIA, Hypertension, Osteoarthritis (OA), Vascular Disorder Additional Past Medical History / Comment(s): MS, States hx. head injury 03-15-20,heart murmur,no Rx for htn,varicose veins, carpal tunnel wrist and elbows,bruises easily, vertigo, Breast CA, current chemo, lupus, anemia, with head injury tia, lft facial droop very slight, will be worked up for fibromay algia once done with ca tx. History of Any Multi-Drug Resistant Organisms: MRSA Year Discovered:: MDRO Source:: right breast lft breast Past Surgical History: Breast Surgery, Cholecystectomy, Tubal Ligation Additional Past Surgical History / Comment(s): She has 4 children by natural childbirth. Lt breast biopsy. 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 grandfather & 2 cousins dx. with hemophilia. Medications and Allergies Home Medications Medication Instructions Recorded Confirmed Type Sertraline HCl [Zoloft] 100 mg PO BID 03/20/21 02/18/23 History Pantoprazole [Protonix] 40 mg PO DAILY 11/23/21 02/18/23 History busPIRone HCL 15 mg PO BID 04/22/22 02/18/23 History Cholecalciferol (Vitamin D3) 125 mcg PO DAILY 08/01/22 02/18/23 History [Vitamin D3 (125 MCG = 5,000 IU)] Cyanocobalamin (Vitamin B-12) 1,000 mcg PO DAILY 08/01/22 02/18/23 History [Vitamin B-12] OLANZapine [ZyPREXA] 2.5 mg PO HS 08/01/22 02/18/23 History Ibuprofen [Motrin] 800 mg PO Q8H PRN 11/08/22 02/18/23 History QUEtiapine [SEROquel] 50 mg PO HS 11/08/22 02/18/23 History Butalb/Acetaminophen/Caffeine 1 cap PO DAILY PRN 12/06/22 02/18/23 History [Fioricet 50-300-40 mg Capsule] Cyclobenzaprine [Flexeril] 10 mg PO HS 12/06/22 02/18/23 History Potassium Chloride [Klor-Con M10] 10 meq PO DAILY 12/06/22 02/18/23 History Acetaminophen/Diphenhydramine 1 tab PO HS PRN 01/09/23 02/18/23 History [Tylenol PM 500-25mg] Cariprazine HCl [Vraylar] 3 mg PO DAILY 01/09/23 02/18/23 History Acetaminophen-Codeine 300-30mg 1 tab PO Q6H PRN 3 Days #24 tablet 01/16/23 02/18/23 Rx [Tylenol w/codeine #3] Cyclobenzaprine [Flexeril] 10 mg PO TID 02/18/23 02/18/23 History cefTRIAXone [Rocephin] 2,000 mg IVP Q24HR #10 each 02/25/23 Rx Allergies Allergy/AdvReac Type Severity Reaction Status Date / Time aloe Allergy severe Verified 02/18/23 07:29 itching Sulfa (Sulfonamide Allergy Anaphylaxis Verified 02/18/23 07:29 Antibiotics) Physical Exam Vitals: Vital Signs Temp Pulse Resp BP Pulse Ox 02/18/23 12:07 97.7 F 79 20 114/86 96 02/18/23 08:28 67 18 112/80 98 02/18/23 04:46 83 16 119/80 95 02/18/23 03:03 93 02/18/23 01:13 98.7 F 131 H 16 119/77 98 Intake and Output 02/17/23 02/18/23 02/18/23 22:59 06:59 14:59 Other: Weight 86.183 kg GENERAL DESCRIPTION: Middle-aged female lying in bed, no distress. No tachypnea or accessory muscle of respiration use. HEENT: Shows Pallor , no scleral icterus. Oral mucous membrane is dry. No pharyngeal erythema or thrush NECK: Trachea central, no thyromegaly. LUNGS: Unlabored breathing. Clear to auscultation anteriorly. No wheeze or crackle. HEART: S1, S2, regular rate and rhythm. No loud murmur ABDOMEN: Soft, no tenderness , guarding or rigidity, no organomegaly EXTREMITIES: No edema of feet. SKIN: No rash, no masses palpable. Left breast surgical site with the swelling redness and drainage NEUROLOGICAL: The patient is awake, alert, oriented x3, mood and affect normal. Results CBC & Chem 7: 02/24/23 17:09 02/24/23 17:09 Labs: Abnormal Lab Results - Last 24 Hours (Table) 02/18/23 02/18/23 02/18/23 Range/Units 02:20 02:20 04:25 Neutrophils # 9.0 H (1.3-7.7) k/uL Lymphocytes # 0.5 L (1.0-4.8) k/uL Sodium 134 L (137-145) mmol/L Chloride 94 L (98-107) mmol/L BUN 6 L (7-17) mg/dL Glucose 149 H (74-99) mg/dL AST 54 H (14-36) U/L ALT 72 H (4-34) U/L Alkaline Phosphatase 170 H (38-126) U/L C-Reactive Protein 8.5 H (<1.0) mg/dL Ur Leukocyte Esterase Small H (Negative) Urine WBC 11 H (0-5) /hpf Urine WBC Clumps Rare H (None) /hpf Ur Squamous Epith Cells 5 H (0-4) /hpf Urine Bacteria Many H (None) /hpf Urine Mucus Moderate H (None) /hpf Urine Yeast (Budding) Occasional H (None) /hpf Assessment and Plan (1) Left breast abscess Status: Acute Code(s): N61.1 - ABSCESS OF THE BREAST AND NIPPLE SNOMED Code(s): 72159279 Plan: 1patient presented to hospital with left breast cellulitis concerning for possible abscess in this patient who is status post bilateral mastectomy and implant placement a few weeks ago failing outpatient oral Keflex therapy concern for possible community associated MRSA or gram-negative infection 2-await surgical drainage and deep culture 3-vancomycin pharmacy to dose with a target trough of 15 while watching kidney function and Vanco trough closely., We will add cefepime to cover for gram- negative We will follow on clinical condition and cultures to further adjust medication if needed Thank you for this consultation we will follow the patient along with you Time with Patient: Greater than 30
[2023-02-18] MEDS: OLANZapine 2.5 MG TAB PO SCH (22:15)
--- NOTE | 2023-02-18 22:57 | HP ---
HISTORY AND PHYSICAL CHIEF COMPLAINT: Postop wound infection in the left breast. HISTORY OF PRESENT ILLNESS: This is another admission for this 32-year-old white female, who is fighting breast cancer. She was in the hospital recently for bilateral mastectomy. The left wound became slightly red and inflamed and then started to dehisce laterally with a purulent drainage. She has had chills, but no fever. REVIEW OF SYSTEMS: Otherwise unremarkable. She has had no recent headaches, neurologic problems, seizures, chest pain, shortness of breath, cough, hemoptysis, murmurs, rheumatic fever, abdominal pain, nausea, vomiting, diarrhea, melena, hematochezia, hematuria, frequency, urgency, dysuria, renal failure, diabetes, etc. Past medical history, family history and personal and social histories are all otherwise unremarkable or noncontributory or unchanged from her recent admitting and discharge summaries. She is allergic to sulfa. MEDICATIONS: Include, 1. Ibuprofen. 2. Potassium. 3. Fiorinal. 4. Tylenol 3. 5. Vraylar. 6. Vitamin D. 7. Flexeril. 8. Sertraline. 9. BuSpar. 10.Seroquel. 11.Olanzapine. 12.Ondansetron. 13.Folic acid. 14.Pantoprazole. She used to smoke, but does not any longer. PHYSICAL EXAMINATION: VITAL SIGNS: Normal. Blood pressure 122/68, pulse of 117. She is afebrile. GENERAL: She appeared to be in no acute distress. SKIN: Color is normal. HEAD, EARS, EYES, NOSE, MOUTH AND THROAT: Normal. CHEST: Clear. CARDIAC: Normal. Examination of the anterior chest revealed that the right incision looks like it was healing well with penelope and no signs of infection. On the left, there are skin penelope, but the wound was erythematous and open laterally and draining purulent material. ABDOMEN: Soft, nontender without visceromegaly or masses. Bowel sounds present. EXTREMITIES: Normal. NEUROLOGICAL: She is intact. ASSESSMENT: She is admitted to the hospital with diagnosis of, 1. Wound infection in left mastectomy site. 2. Carcinoma of the breast. PLAN: 1. Bed rest. 2. IV fluids. 3. Cultures. 4. IV antibiotics. 5. Consult Surgery. MMODL / IJN: [id number] /
[2023-02-19] MEDS: CEFEPIME 2 GM in SODIUM CHLORIDE 0.9% 100 ML IVPB SCH ×4 (01:41→21:25)
[2023-02-19] MEDS: VANCOMYCIN 1,500 MG in SODIUM CHLORIDE 0.9% 500 ML 500 ML IVPB SCH ×2 (04:26→17:16)
[2023-02-19] MEDS: Cariprazine Hcl [Vraylar] 3 MG Capsule PO SCH (07:38)
[2023-02-19] MEDS: busPIRone HCl 5 MG TAB PO SCH ×2 (07:43→21:25)
[2023-02-19] MEDS: SERTRALINE 100 MG TAB PO SCH ×2 (07:43→21:25)
[2023-02-19] MEDS: IBUPROFEN 800 MG TAB PO PRN (07:43)
[2023-02-19] MEDS: CYANOCOBALAMIN 500 MCG TAB PO SCH (07:43)
[2023-02-19] MEDS: PANTOPRAZOLE 40 MG TABLET PO SCH (07:43)
[2023-02-19] MEDS: POTASSIUM CHLORIDE ER 10 MEQ TAB.ER.PRT PO SCH (07:43)
[2023-02-19] MEDS: SODIUM CHLORIDE 0.9% 1,000 ML IV SCH (07:44)
[2023-02-19] MEDS: Acetaminophen-Codeine 300-30mg TAB PO PRN (09:55)
[2023-02-19] MEDS ORDERED: VANCOMYCIN TROUGH DUE 1 EACH MISC MISCELLANE ONE (10:00)
[2023-02-19 10:25] LABS: African American GFR (CKD) >90 (>60 ml/min/1.73 sqM); Anion Gap 8 mmol/L; Blood Urea Nitrogen 6 mg/dL (7-17); Calcium 8.2 mg/dL (8.4-10.2); Carbon Dioxide 24 mmol/L (22-30); Chloride 107 mmol/L (98-107); Glucose 132 mg/dL (74-99); Non-African American GFR(CKD) >90 (>60 ml/min/1.73 sqM); Potassium 3.9 mmol/L (3.5-5.1); Sodium 139 mmol/L (137-145)
[2023-02-19 10:30] LABS: Basophils % (A) 0 %; Eosinophils # (A) 0.1 k/uL (0-0.7); Eosinophils % (A) 1 %; HCT 35.2 % (34.0-46.0); HGB 11.1 gm/dL (11.4-16.0); Hypochromasia Slight; Lymphocytes # (A) 0.7 k/uL (1.0-4.8); Lymphocytes % (A) 14 %; MCH 29.4 pg (25.0-35.0); MCHC 31.6 g/dL (31.0-37.0); MCV 93.1 fL (80.0-100.0); Mean Platelet Volume 7.4; Monocytes # (A) 0.3 k/uL (0-1.0); Monocytes % (A) 5 %; Neutrophils # (A) 4.2 k/uL (1.3-7.7); Neutrophils % (A) 79 %; Platelet Count 383 k/uL (150-450); RBC 3.78 m/uL (3.80-5.40); RDW 12.1 % (11.5-15.5); WBC 5.4 k/uL (3.8-10.6)
[2023-02-19 13:20] VITALS: BMI 32.5
[2023-02-19] MEDS: MORPHINE SULFATE 4 MG/ML SYRINGE IV PRN ×2 (13:35→21:33)
[2023-02-19] MEDS: QUEtiapine 50 MG TAB PO SCH (21:25)
[2023-02-19] MEDS: OLANZapine 2.5 MG TAB PO SCH (21:25)
[2023-02-19] MEDS: CYCLOBENZAPRINE 10 MG TAB PO SCH (21:25)
[2023-02-20] MEDS: SODIUM CHLORIDE 0.9% 1,000 ML IV SCH ×3 (05:01→09:08)
[2023-02-20] MEDS: VANCOMYCIN 1,500 MG in SODIUM CHLORIDE 0.9% 500 ML 500 ML IVPB SCH ×2 (05:56→17:19)
[2023-02-20] MEDS: MORPHINE SULFATE 4 MG/ML SYRINGE IV PRN ×3 (05:56→20:44)
[2023-02-20] MEDS: CEFEPIME 2 GM in SODIUM CHLORIDE 0.9% 100 ML IVPB SCH ×3 (05:57→20:49)
[2023-02-20 06:46] LABS: African American GFR (CKD) >90 (>60 ml/min/1.73 sqM); Anion Gap 7 mmol/L; Blood Urea Nitrogen 6 mg/dL (7-17); Calcium 7.9 mg/dL (8.4-10.2); Carbon Dioxide 23 mmol/L (22-30); Chloride 110 mmol/L (98-107); Glucose 96 mg/dL (74-99); Non-African American GFR(CKD) >90 (>60 ml/min/1.73 sqM); Sodium 140 mmol/L (137-145)
--- NOTE | 2023-02-20 08:56 | P.PN ---
Subjective Progress Note Date: 02/20/23 Principal diagnosis: Postop day #2 removal of infected left breast implant Yoko is a 32-year-old white female status post removal of left breast infected implant postop day #2. She is doing well at this time. She is not complaining of pain. She is tolerating diet without difficulty. She is presently on vancomycin as per infectious disease. Wound cultures revealed rare gram-positive cocci. Her blood cell count 5.4, hemoglobin 11.1 on . Objective - Vital Signs Vital signs: Vital Signs Temp 97.5 F L 02/20/23 07:40 Pulse 77 02/20/23 07:40 Resp 16 02/20/23 07:40 BP 116/79 02/20/23 07:40 Pulse Ox 96 02/20/23 07:40 FiO2 Intake & Output 02/19/23 02/20/23 02/20/23 18:59 06:59 18:59 Weight 86.183 kg Other: Voiding Method Toilet Toilet # Voids 4 2 - Constitutional General appearance: Present: cooperative - EENT Eyes: Present: EOMI ENT: Present: hearing grossly normal - Neck Neck: Present: normal ROM - Respiratory Respiratory: bilateral: CTA - Cardiovascular Rhythm: regular Heart sounds: normal: S1, S2 - Integumentary Integumentary Comment(s): Packing changed, wound is clean and dry - Psychiatric Psychiatric: Present: A&O x's 3, appropriate affect, intact judgment & insight - Labs CBC & Chem 7: 02/19/23 09:52 02/20/23 06:15 Labs: Abnormal Lab Results - Last 24 Hours (Table) 02/19/23 02/19/23 02/20/23 Range/Units 09:52 09:52 06:15 RBC 3.78 L (3.80-5.40) m/uL Hgb 11.1 L (11.4-16.0) gm/dL Lymphocytes # 0.7 L (1.0-4.8) k/uL Chloride 110 H (98-107) mmol/L BUN 6 L 6 L (7-17) mg/dL Glucose 132 H (74-99) mg/dL Calcium 8.2 L 7.9 L (8.4-10.2) mg/dL Microbiology - Last 24 Hours (Table) 02/18/23 02:05 Blood Culture - Preliminary Blood 02/18/23 02:20 Blood Culture - Preliminary Blood 02/18/23 15:27 Gram Stain - Preliminary Breast - Left Wound Culture - Preliminary 02/18/23 15:26 Gram Stain - Preliminary Breast - Left Wound Culture - Preliminary Assessment and Plan Assessment: Impression: Infected left breast prepectoral implant, removed postop day #2 Plan: Continue antibiotic therapy as per infectious disease Continue wound care with wet-to-dry dressing changes Patient stable for discharge when okay with infectious disease I have suggested home healthcare however the patient has declined at this time. The patient will need to be taught dressing changed care. Patient should follow up with Dr. Khan and Dr. Gabriel on an outpatient basis.
[2023-02-20] MEDS: POTASSIUM CHLORIDE ER 10 MEQ TAB.ER.PRT PO SCH (09:03)
[2023-02-20] MEDS: CYANOCOBALAMIN 500 MCG TAB PO SCH (09:03)
[2023-02-20] MEDS: busPIRone HCl 5 MG TAB PO SCH ×2 (09:04→20:46)
[2023-02-20] MEDS: PANTOPRAZOLE 40 MG TABLET PO SCH (09:04)
[2023-02-20] MEDS: Acetaminophen-Codeine 300-30mg TAB PO PRN ×2 (09:04→17:19)
[2023-02-20] MEDS: SERTRALINE 100 MG TAB PO SCH ×2 (09:04→20:46)
[2023-02-20] MEDS: Cariprazine Hcl [Vraylar] 3 MG Capsule PO SCH (09:05)
--- NOTE | 2023-02-20 13:18 | P.PN ---
Subjective Progress Note Date: 02/19/23 Principal diagnosis: Left breast abscess and infected implant Patient is a 32-year-old female with a past medical history significant for breast cancer in this patient who is status post bilateral mastectomy completed on 01/14/2023 along with bilateral prepectoral implant reconstruction patient is presenting to the hospital with increasing pain swelling redness and drainage especially to the left breast area, patient has been diagnosed with infected left breast implant and status post removal of the infected left breast implant and irrigation of the wound completed on 02/18/2023. on today's evaluation that is 02/19/2023, the patient is currently afebrile she is breathing comfortably has been complaining of swelling mostly to the upper extremity no chest pain shortness of breath or cough, no nausea no vomiting no abdominal pain or diarrhea Objective - Vital Signs Vital signs: Vital Signs Temp 97.5 F L 02/19/23 07:35 Pulse 63 02/19/23 07:35 Resp 16 02/19/23 07:35 BP 108/69 02/19/23 07:35 Pulse Ox 96 02/19/23 07:35 FiO2 Intake & Output 02/18/23 02/19/23 02/19/23 18:59 06:59 18:59 Intake Total 900 Output Total 10 Balance 890 Intake: IV 900 Output: Estimated Blood Loss 10 Other: Voiding Method Toilet # Voids 1 2 - Exam GENERAL DESCRIPTION: A middle-aged female lying in bed in no distress RESPIRATORY SYSTEM: Unlabored breathing , decreased breath sounds at bases HEART: S1 S2 regular rate and rhythm , ABDOMEN: Soft , no tenderness EXTREMITIES: No edema feet - Labs CBC & Chem 7: 02/19/23 09:52 02/20/23 06:15 Labs: Abnormal Lab Results - Last 24 Hours (Table) 02/19/23 02/19/23 Range/Units 09:52 09:52 RBC 3.78 L (3.80-5.40) m/uL Hgb 11.1 L (11.4-16.0) gm/dL Lymphocytes # 0.7 L (1.0-4.8) k/uL BUN 6 L (7-17) mg/dL Glucose 132 H (74-99) mg/dL Calcium 8.2 L (8.4-10.2) mg/dL Microbiology - Last 24 Hours (Table) 02/18/23 02:05 Blood Culture - Preliminary Blood 02/18/23 02:20 Blood Culture - Preliminary Blood 02/18/23 15:27 Gram Stain - Preliminary Breast - Left Wound Culture - Preliminary 02/18/23 15:26 Gram Stain - Preliminary Breast - Left Wound Culture - Preliminary 02/18/23 15:26 Anaerobic Culture - Preliminary Breast - Left 02/18/23 15:27 Anaerobic Culture - Preliminary Breast - Left Assessment and Plan (1) Left breast abscess Current Visit: Yes Status: Acute Code(s): N61.1 - ABSCESS OF THE BREAST AND NIPPLE SNOMED Code(s): 17574676 Plan: 1patient presented to hospital with left breast cellulitis concerning for possible abscess in this patient who is status post bilateral mastectomy and implant placement a few weeks ago failing outpatient oral Keflex therapy concern for possible community associated MRSA or gram-negative infection 2Patient is status post surgical drainage and deep culture, along with removal of the infected implant on 02/18/2023, cultures currently pending 3-patient to continue with vancomycin pharmacy to dose and cefepime while waiting for the cultures to finalize Time with Patient: Less than 30
--- NOTE | 2023-02-20 13:19 | P.PN ---
Subjective Progress Note Date: 02/20/23 Principal diagnosis: Left breast abscess and infected implant Patient is a 32-year-old female with a past medical history significant for breast cancer in this patient who is status post bilateral mastectomy completed on 01/14/2023 along with bilateral prepectoral implant reconstruction patient is presenting to the hospital with increasing pain swelling redness and drainage especially to the left breast area, patient has been diagnosed with infected left breast implant and status post removal of the infected left breast implant and irrigation of the wound completed on 02/18/2023. on today's evaluation that is 02/20/2023, the patient remains to be afebrile, the patient is breathing comfortably on room air, the patient denies chest pain shortness of breath or cough, no nausea no vomiting no abdominal pain or diarrhea Objective - Vital Signs Vital signs: Vital Signs Temp 97.5 F L 02/20/23 07:40 Pulse 77 02/20/23 07:40 Resp 16 02/20/23 07:40 BP 116/79 02/20/23 07:40 Pulse Ox 96 02/20/23 07:40 FiO2 Intake & Output 02/19/23 02/20/23 02/20/23 18:59 06:59 18:59 Weight 86.183 kg Other: Voiding Method Toilet Toilet # Voids 4 2 - Exam GENERAL DESCRIPTION: A middle-aged female lying in bed in no distress RESPIRATORY SYSTEM: Unlabored breathing , decreased breath sounds at bases HEART: S1 S2 regular rate and rhythm , ABDOMEN: Soft , no tenderness EXTREMITIES: No edema feet - Labs CBC & Chem 7: 02/19/23 09:52 02/20/23 06:15 Labs: Abnormal Lab Results - Last 24 Hours (Table) 02/20/23 Range/Units 06:15 Chloride 110 H (98-107) mmol/L BUN 6 L (7-17) mg/dL Calcium 7.9 L (8.4-10.2) mg/dL Microbiology - Last 24 Hours (Table) 02/18/23 02:20 Blood Culture - Preliminary Blood 02/18/23 02:05 Blood Culture - Preliminary Blood 02/18/23 15:26 Gram Stain - Preliminary Breast - Left Wound Culture - Preliminary Presumptive Staph aureus 02/18/23 15:27 Gram Stain - Preliminary Breast - Left Wound Culture - Preliminary Presumptive Staph aureus Assessment and Plan (1) Left breast abscess Current Visit: Yes Status: Acute Code(s): N61.1 - ABSCESS OF THE BREAST AND NIPPLE SNOMED Code(s): 55923163 Plan: 1patient presented to hospital with left breast cellulitis concerning for poss ible abscess in this patient who is status post bilateral mastectomy and implant placement a few weeks ago failing outpatient oral Keflex therapy concern for possible community associated MRSA or gram-negative infection 2Patient is status post surgical drainage and deep culture, along with removal of the infected implant on 02/18/2023, cultures currently growing Staphylococcus aureus with sensitivities pending 3-patient to continue with vancomycin pharmacy to dose and cefepime while waiting for the cultures to finalize and monitor clinical course closely Time with Patient: Less than 30
[2023-02-20] MEDS: CYCLOBENZAPRINE 10 MG TAB PO SCH (20:47)
[2023-02-20] MEDS: QUEtiapine 50 MG TAB PO SCH (20:47)
[2023-02-20] MEDS: OLANZapine 2.5 MG TAB PO SCH (20:47)
[2023-02-21] MEDS: MORPHINE SULFATE 4 MG/ML SYRINGE IV PRN ×4 (02:28→18:47)
--- NOTE | 2023-02-21 04:13 | PN ---
PROGRESS NOTE DATE OF SERVICE: 02/20/2023 CHIEF COMPLAINT: Infected left breast prosthesis. HISTORY OF PRESENT ILLNESS: This lady is doing a bit better. She is having a little less discomfort. She is not having any fever, chills, nausea, vomiting, etc. PHYSICAL EXAMINATION: CHEST: She has a binder on the chest. Chest is clear. CARDIAC: Normal. ABDOMEN: Soft, nontender. IMPRESSION: Status post removal of infected left breast implant. PLAN: Continue with IV antibiotics. MMODL / IJN: [id number] /
--- NOTE | 2023-02-21 04:41 | PN ---
PROGRESS NOTE DATE OF SERVICE: 02/19/2023 CHIEF COMPLAINT: Infected left breast prosthesis. HISTORY OF PRESENT ILLNESS: This lady is doing fairly well, but she is somewhat uncomfortable. She has had no fever, chills. PHYSICAL EXAMINATION: CHEST: Clear. CARDIAC: Normal. IMPRESSION: Status post removal of infected left breast prosthesis. PLAN: Continue with IV fluids and antibiotics. Cultures are revealing a staph organism. MMODL / IJN: [id number] /
[2023-02-21] MEDS ORDERED: VANCOMYCIN TROUGH DUE 1 EACH MISC MISCELLANE ONE (05:00)
[2023-02-21] MEDS: CEFEPIME 2 GM in SODIUM CHLORIDE 0.9% 100 ML IVPB SCH (05:13)
[2023-02-21] MEDS: VANCOMYCIN 1,500 MG in SODIUM CHLORIDE 0.9% 500 ML 500 ML IVPB SCH (05:13)
[2023-02-21 05:55] LABS: African American GFR (CKD) >90 (>60 ml/min/1.73 sqM); Anion Gap 6 mmol/L; Blood Urea Nitrogen 7 mg/dL (7-17); Calcium 8.5 mg/dL (8.4-10.2); Carbon Dioxide 30 mmol/L (22-30); Chloride 102 mmol/L (98-107); Glucose 88 mg/dL (74-99); Non-African American GFR(CKD) >90 (>60 ml/min/1.73 sqM); Potassium 3.9 mmol/L (3.5-5.1); Sodium 138 mmol/L (137-145)
[2023-02-21] MEDS: SERTRALINE 100 MG TAB PO SCH ×2 (08:16→21:08)
[2023-02-21] MEDS: CYANOCOBALAMIN 500 MCG TAB PO SCH (08:16)
[2023-02-21] MEDS: PANTOPRAZOLE 40 MG TABLET PO SCH (08:16)
[2023-02-21] MEDS: POTASSIUM CHLORIDE ER 10 MEQ TAB.ER.PRT PO SCH (08:16)
[2023-02-21] MEDS: busPIRone HCl 5 MG TAB PO SCH ×2 (08:17→21:08)
--- NOTE | 2023-02-21 09:02 | P.PN ---
Subjective Progress Note Date: 02/21/23 Principal diagnosis: Postop day #3 removal of infected left breast implant Yoko is a 32-year-old white female status post removal of left breast infected implant postop day #3. She is doing well at this time. She is not complaining of pain. She is tolerating diet without difficulty. She is presently on vancomycin as per infectious disease. Wound cultures pending. Her blood cell count 5.4, [place] [id number]. Objective - Vital Signs Vital signs: Vital Signs Temp 97.5 F L 02/21/23 07:40 Pulse 72 02/21/23 07:40 Resp 16 02/21/23 07:40 BP 119/79 02/21/23 07:40 Pulse Ox 95 02/21/23 07:40 FiO2 Intake & Output 02/20/23 02/21/23 02/21/23 18:59 06:59 18:59 Intake Total 200 Balance 200 Intake: Oral 200 Other: Voiding Method Toilet # Voids 2 - Constitutional General appearance: Present: cooperative - EENT Eyes: Present: EOMI ENT: Present: hearing grossly normal - Neck Neck: Present: normal ROM - Respiratory Respiratory: bilateral: CTA - Cardiovascular Rhythm: regular Heart sounds: normal: S1, S2 - Integumentary Integumentary Comment(s): Dressing changed from dry to wet, wound is healing well - Musculoskeletal Musculoskeletal: Present: gait normal - Psychiatric Psychiatric: Present: A&O x's 3, appropriate affect, intact judgment & insight - Labs CBC & Chem 7: 02/19/23 09:52 02/21/23 05:11 Labs: Microbiology - Last 24 Hours (Table) 02/18/23 15:26 Anaerobic Culture - Preliminary Breast - Left 02/18/23 02:20 Blood Culture - Preliminary Blood 02/18/23 02:05 Blood Culture - Preliminary Blood 02/18/23 15:26 Gram Stain - Preliminary Breast - Left Wound Culture - Preliminary Presumptive Staph aureus 02/18/23 15:27 Gram Stain - Preliminary Breast - Left Wound Culture - Preliminary Presumptive Staph aureus Assessment and Plan Assessment: Impression: Infected left breast prepectoral implant, removed postop day #3 Plan: Continue antibiotic therapy as per infectious disease Continue wound care with wet-to-dry dressing changes Patient stable for discharge when okay with infectious disease I have suggested home healthcare however the patient has declined at this time. The patient will need to be taught dressing changed care. Patient should follow up with Dr. Khan and Dr. Gabriel on an outpatient basis.
[2023-02-21] MEDS: Cariprazine Hcl [Vraylar] 3 MG Capsule PO SCH (10:22)
[2023-02-21] MEDS: Acetaminophen-Codeine 300-30mg TAB PO PRN ×2 (10:27→16:32)
[2023-02-21] MEDS: SODIUM CHLORIDE 0.9% 1,000 ML IV SCH (14:51)
--- NOTE | 2023-02-21 15:48 | P.PN ---
Subjective Progress Note Date: 02/21/23 Principal diagnosis: Left breast abscess and infected implant Patient is a 32-year-old female with a past medical history significant for breast cancer in this patient who is status post bilateral mastectomy completed on 01/14/2023 along with bilateral prepectoral implant reconstruction patient is presenting to the hospital with increasing pain swelling redness and drainage especially to the left breast area, patient has been diagnosed with infected left breast implant and status post removal of the infected left breast implant and irrigation of the wound completed on 02/18/2023. on today's evaluation that is 02/21/2023, the patient continues to be afebrile, the patient is breathing comfortably on room air, the patient denies chest pain shortness of breath or cough, patient denies having any nausea no vomiting no abdominal pain or diarrhea, has been complaining of some twitching upper and lower extremity Objective - Vital Signs Vital signs: Vital Signs Temp 97.5 F L 02/21/23 07:40 Pulse 72 02/21/23 07:40 Resp 16 02/21/23 07:40 BP 119/79 02/21/23 07:40 Pulse Ox 95 02/21/23 07:40 FiO2 Intake & Output 02/20/23 02/21/23 02/21/23 18:59 06:59 18:59 Intake Total 200 Balance 200 Intake: Oral 200 Other: Voiding Method Toilet Toilet # Voids 2 - Exam GENERAL DESCRIPTION: A middle-aged female lying in bed in no distress RESPIRATORY SYSTEM: Unlabored breathing , decreased breath sounds at bases HEART: S1 S2 regular rate and rhythm , ABDOMEN: Soft , no tenderness Left breast/ chest wall wound which is deep no significant slough tissue or surrounding redness - Labs CBC & Chem 7: 02/19/23 09:52 02/21/23 05:11 Labs: Microbiology - Last 24 Hours (Table) 02/18/23 15:26 Gram Stain - Final Breast - Left Wound Culture - Final Staph aureus 02/18/23 15:27 Gram Stain - Final Breast - Left Wound Culture - Final Staphylococcus aureus 02/18/23 02:20 Blood Culture - Preliminary Blood 02/18/23 02:05 Blood Culture - Preliminary Blood 02/18/23 15:26 Anaerobic Culture - Preliminary Breast - Left Assessment and Plan (1) Left breast abscess Current Visit: Yes Status: Acute Code(s): N61.1 - ABSCESS OF THE BREAST AND NIPPLE SNOMED Code(s): 07607658 Plan: 1patient presented to hospital with left breast cellulitis concerning for possible abscess in this patient who is status post bilateral mastectomy and imp lant placement a few weeks ago failing outpatient oral Keflex therapy concern for possible community associated MRSA or gram-negative infection 2Patient is status post surgical drainage and deep culture, along with removal of the infected implant on 02/18/2023, cultures currently MSSA 3We will discontinue vancomycin and cefepime start the patient on cefazolin 2 g every 8 hours continue local wound care per surgery, will consider short course of IV antibiotic on discharge Time with Patient: Less than 30
[2023-02-21] MEDS: QUEtiapine 50 MG TAB PO SCH (21:07)
[2023-02-21] MEDS: OLANZapine 2.5 MG TAB PO SCH (21:08)
[2023-02-21] MEDS: CYCLOBENZAPRINE 10 MG TAB PO SCH (21:08)
[2023-02-21] MEDS: ACETAMINOPHEN TAB 500 MG TAB PO PRN (21:10)
[2023-02-21] MEDS: diphenhydrAMINE 25 MG CAP PO PRN (21:10)
[2023-02-22] MEDS: SODIUM CHLORIDE 0.9% 1,000 ML IV SCH ×2 (04:31→16:09)
[2023-02-22] MEDS ORDERED: VANCOMYCIN 1,500 MG in SODIUM CHLORIDE 0.9% 500 ML 500 ML IVPB SCH (06:00)
[2023-02-22] MEDS: POTASSIUM CHLORIDE ER 10 MEQ TAB.ER.PRT PO SCH (07:05)
[2023-02-22] MEDS: busPIRone HCl 5 MG TAB PO SCH ×2 (07:05→21:54)
[2023-02-22] MEDS: PANTOPRAZOLE 40 MG TABLET PO SCH (07:05)
[2023-02-22] MEDS: SERTRALINE 100 MG TAB PO SCH ×2 (07:05→21:53)
[2023-02-22] MEDS: CYANOCOBALAMIN 500 MCG TAB PO SCH (07:05)
[2023-02-22] MEDS: Cariprazine Hcl [Vraylar] 3 MG Capsule PO SCH (07:06)
[2023-02-22] MEDS: Acetaminophen-Codeine 300-30mg TAB PO PRN ×2 (07:09→13:53)
[2023-02-22 07:22] LABS: African American GFR (CKD) >90 (>60 ml/min/1.73 sqM); Non-African American GFR(CKD) >90 (>60 ml/min/1.73 sqM)
[2023-02-22] MEDS: MORPHINE SULFATE 4 MG/ML SYRINGE IV PRN (12:50)
[2023-02-22] MEDS ORDERED: MORPHINE SULFATE 4 MG/ML SYRINGE IVP PRN (15:44)
[2023-02-22] MEDS: MORPHINE SULFATE 4 MG/ML SYRINGE IVP PRN ×3 (16:08→23:12)
[2023-02-22] MEDS: diphenhydrAMINE 25 MG CAP PO PRN (21:53)
[2023-02-22] MEDS: CYCLOBENZAPRINE 10 MG TAB PO SCH (21:53)
[2023-02-22] MEDS: ACETAMINOPHEN TAB 500 MG TAB PO PRN (21:53)
[2023-02-22] MEDS: QUEtiapine 50 MG TAB PO SCH (21:53)
[2023-02-22] MEDS: OLANZapine 2.5 MG TAB PO SCH (21:54)
--- NOTE | 2023-02-22 22:19 | P.PN ---
Subjective Progress Note Date: 02/22/23 Principal diagnosis: Left breast abscess and infected implant Patient is a 32-year-old female with a past medical history significant for breast cancer in this patient who is status post bilateral mastectomy completed on 01/14/2023 along with bilateral prepectoral implant reconstruction patient is presenting to the hospital with increasing pain swelling redness and drainage especially to the left breast area, patient has been diagnosed with infected left breast implant and status post removal of the infected left breast implant and irrigation of the wound completed on 02/18/2023. on today's evaluation that is 02/22/2023, the patient denies having any fever or any chills patient still complaining of pain to the left chest wall at site of debridement under control with pain medication no nausea vomiting abdominal pain or diarrhea has been reported Objective - Vital Signs Vital signs: Vital Signs Temp 98.8 F 02/22/23 07:43 Pulse 68 02/22/23 07:43 Resp 18 02/22/23 07:43 BP 120/77 02/22/23 07:43 Pulse Ox 97 02/22/23 07:43 FiO2 Intake & Output 02/21/23 02/22/23 02/22/23 18:59 06:59 18:59 Other: Voiding Method Toilet Toilet # Voids 1 - Exam GENERAL DESCRIPTION: A middle-aged female lying in bed in no distress RESPIRATORY SYSTEM: Unlabored breathing , decreased breath sounds at bases HEART: S1 S2 regular rate and rhythm , ABDOMEN: Soft , no tenderness Left breast/ chest wall wound is currently dressed - Labs CBC & Chem 7: 02/19/23 09:52 02/22/23 07:02 Labs: Microbiology - Last 24 Hours (Table) 02/18/23 15:26 Gram Stain - Final Breast - Left Wound Culture - Final Staph aureus 02/18/23 15:27 Gram Stain - Final Breast - Left Wound Culture - Final Staphylococcus aureus 02/18/23 02:20 Blood Culture - Preliminary Blood 02/18/23 02:05 Blood Culture - Preliminary Blood Assessment and Plan (1) Left breast abscess Current Visit: Yes Status: Acute Code(s): N61.1 - ABSCESS OF THE BREAST AND NIPPLE SNOMED Code(s): 57721877 Plan: 1patient presented to hospital with left breast cellulitis concerning for possible abscess in this patient who is status post bilateral mastectomy and implant placement a few weeks ago failing outpatient oral Keflex therapy concern for possible community associated MRSA or gram-negative infection 2Patient is status post surgical drainage and deep culture, along with removal of the infected implant on 02/18/2023, cultures currently MSSA 3Patient to continue cefazolin 2 g every 8 hours and hopefully will transition to short course of IV Rocephin 2 g daily on discharge local wound care to continue with wet-to-dry packing of the wound surgery and monitor clinical course closely Time with Patient: Less than 30
[2023-02-23] MEDS ORDERED: VANCOMYCIN TROUGH DUE 1 EACH MISC MISCELLANE ONE (05:00)
[2023-02-23] MEDS: MORPHINE SULFATE 4 MG/ML SYRINGE IVP PRN ×4 (06:28→19:39)
[2023-02-23] MEDS: CYANOCOBALAMIN 500 MCG TAB PO SCH (07:51)
[2023-02-23] MEDS: SERTRALINE 100 MG TAB PO SCH ×2 (07:52→20:15)
[2023-02-23] MEDS: PANTOPRAZOLE 40 MG TABLET PO SCH (07:52)
[2023-02-23] MEDS: Cariprazine Hcl [Vraylar] 3 MG Capsule PO SCH (07:52)
[2023-02-23] MEDS: POTASSIUM CHLORIDE ER 10 MEQ TAB.ER.PRT PO SCH (07:52)
[2023-02-23] MEDS: busPIRone HCl 5 MG TAB PO SCH ×2 (07:52→20:29)
[2023-02-23] MEDS: SODIUM CHLORIDE 0.9% 1,000 ML IV SCH ×2 (08:31→23:33)
[2023-02-23] MEDS: Acetaminophen-Codeine 300-30mg TAB PO PRN ×2 (14:49→23:34)
--- NOTE | 2023-02-23 15:10 | P.PN ---
Subjective Progress Note Date: 02/23/23 Principal diagnosis: Left breast abscess and infected implant Patient is a 32-year-old female with a past medical history significant for breast cancer in this patient who is status post bilateral mastectomy completed on 01/14/2023 along with bilateral prepectoral implant reconstruction patient is presenting to the hospital with increasing pain swelling redness and drainage especially to the left breast area, patient has been diagnosed with infected left breast implant and status post removal of the infected left breast implant and irrigation of the wound completed on 02/18/2023. on today's evaluation that is 02/23/2023, the patient remains to be afebrile, the patient pain to the left chest wall at site of debridement is currently controlled with pain medication, the patient denies nausea vomiting abdominal pain or diarrhea has been reported Objective - Vital Signs Vital signs: Vital Signs Temp 98.5 F 02/23/23 13:03 Pulse 74 02/23/23 13:03 Resp 18 02/23/23 13:03 BP 116/73 02/23/23 13:03 Pulse Ox 94 L 02/23/23 13:03 FiO2 Intake & Output 02/22/23 02/23/23 02/23/23 18:59 06:59 18:59 Intake Total 480 50 Balance 480 50 Intake: Intake, IV Titration 50 Amount ceFAZolin 2 gm In Sodium 50 Chloride 0.9% 50 ml @ 100 mls/hr IVPB Q8HR [facility] Rx# :[id number] Oral 480 Other: Voiding Method Toilet Toilet Toilet # Voids 4 4 # Bowel Movements 1 1 - Exam GENERAL DESCRIPTION: A middle-aged female lying in bed in no distress RESPIRATORY SYSTEM: Unlabored breathing , decreased breath sounds at bases HEART: S1 S2 regular rate and rhythm , ABDOMEN: Soft , no tenderness Left breast/ chest wall wound is currently dressed - Labs CBC & Chem 7: 02/19/23 09:52 02/22/23 07:02 Labs: Microbiology - Last 24 Hours (Table) 02/18/23 02:05 Blood Culture - Final Blood 02/18/23 02:20 Blood Culture - Final Blood 02/18/23 15:27 Anaerobic Culture - Final Breast - Left 02/18/23 15:26 Anaerobic Culture - Final Breast - Left Assessment and Plan (1) Left breast abscess Current Visit: Yes Status: Acute Code(s): N61.1 - ABSCESS OF THE BREAST AND NIPPLE SNOMED Code(s): 84703030 Plan: 1patient presented to hospital with left breast cellulitis concerning for possible abscess in this patient who is status post bilateral mastectomy and implant placement a few weeks ago failing outpatient oral Keflex therapy concern for possible community associated MRSA or gram-negative infection 2Patient is status post surgical drainage and deep culture, along with removal of the infected implant on 02/18/2023, cultures currently MSSA 3Patient has shown clinical improvement and will continue cefazolin 2 g every 8 hours and hopefully will transition to short course of IV Rocephin 2 g daily on discharge local wound care to continue with wet-to-dry packing of the wound surgery and monitor clinical course closely Questions concerned were answered Time with Patient: Less than 30
[2023-02-23] MEDS: CYCLOBENZAPRINE 10 MG TAB PO SCH (20:15)
[2023-02-23] MEDS: OLANZapine 2.5 MG TAB PO SCH (20:15)
[2023-02-23] MEDS: QUEtiapine 50 MG TAB PO SCH (20:15)
[2023-02-24] MEDS: PANTOPRAZOLE 40 MG TABLET PO SCH (07:26)
[2023-02-24] MEDS: busPIRone HCl 5 MG TAB PO SCH ×2 (07:26→20:05)
[2023-02-24] MEDS: POTASSIUM CHLORIDE ER 10 MEQ TAB.ER.PRT PO SCH (07:26)
[2023-02-24] MEDS: Cariprazine Hcl [Vraylar] 3 MG Capsule PO SCH (07:27)
[2023-02-24] MEDS: CYANOCOBALAMIN 500 MCG TAB PO SCH (07:27)
[2023-02-24] MEDS: SERTRALINE 100 MG TAB PO SCH ×2 (07:27→20:05)
[2023-02-24] MEDS: IBUPROFEN 800 MG TAB PO PRN (07:58)
[2023-02-24] MEDS: SODIUM CHLORIDE 0.9% 1,000 ML IV SCH ×2 (08:25→22:13)
[2023-02-24] MEDS: MORPHINE SULFATE 4 MG/ML SYRINGE IVP PRN ×4 (10:36→23:21)
[2023-02-24 17:25] LABS: Basophils % (A) 1 %; Eosinophils # (A) 0.4 k/uL (0-0.7); Eosinophils % (A) 7 %; HCT 39.7 % (34.0-46.0); Lymphocytes # (A) 1.2 k/uL (1.0-4.8); Lymphocytes % (A) 19 %; MCH 30.2 pg (25.0-35.0); MCHC 32.7 g/dL (31.0-37.0); MCV 92.4 fL (80.0-100.0); Monocytes # (A) 0.2 k/uL (0-1.0); Monocytes % (A) 4 %; Neutrophils # (A) 4.4 k/uL (1.3-7.7); Neutrophils % (A) 69 %; Platelet Count 351 k/uL (150-450); RBC 4.29 m/uL (3.80-5.40); RDW 13.2 % (11.5-15.5); WBC 6.4 k/uL (3.8-10.6)
[2023-02-24 17:31] LABS: ALT 18 U/L (4-34); AST 28 U/L (14-36); African American GFR (CKD) >90 (>60 ml/min/1.73 sqM); Albumin 3.3 g/dL (3.5-5.0); Albumin/Globulin Ratio 1.1; Alkaline Phosphatase 138 U/L (38-126); Anion Gap 9 mmol/L; Blood Urea Nitrogen 14 mg/dL (7-17); Calcium 8.7 mg/dL (8.4-10.2); Carbon Dioxide 31 mmol/L (22-30); Chloride 99 mmol/L (98-107); Globulin 2.9 g/dL; Glucose 114 mg/dL (74-99); Non-African American GFR(CKD) >90 (>60 ml/min/1.73 sqM); Potassium 4.3 mmol/L (3.5-5.1); Sodium 139 mmol/L (137-145); Total Bilirubin 0.2 mg/dL (0.2-1.3); Total Protein 6.2 g/dL (6.3-8.2)
--- NOTE | 2023-02-24 17:32 | XR ---
EXAMINATION TYPE: XR chest 2V DATE OF EXAM: 02/24/2023 COMPARISON: 08/01/2022 INDICATION: Fever of unknown origin TECHNIQUE: Frontal and lateral views of the chest are obtained. FINDINGS: The heart size is normal. The pulmonary vasculature is normal. The lungs are clear. There is a port on the right with the tip in the superior vena cava region. A e xpander A be present within the right breast region. Surgical skin penelope are present. IMPRESSION: 1. No acute pulmonary process. 2. Postsurgical changes discussed above
[2023-02-24] MEDS: diphenhydrAMINE 25 MG CAP PO PRN (20:04)
[2023-02-24] MEDS: QUEtiapine 50 MG TAB PO SCH (20:05)
[2023-02-24] MEDS: Acetaminophen-Codeine 300-30mg TAB PO PRN (20:05)
[2023-02-24] MEDS: CYCLOBENZAPRINE 10 MG TAB PO SCH (20:05)
[2023-02-24] MEDS: OLANZapine 2.5 MG TAB PO SCH (20:08)
--- NOTE | 2023-02-24 22:56 | PN ---
PROGRESS NOTE DATE OF SERVICE: 02/22/2023 CHIEF COMPLAINT: Postoperative wound infection. HISTORY OF PRESENT ILLNESS: This lady is doing fairly well, but she is having quite a bit of discomfort. PHYSICAL EXAMINATION: CHEST: Clear. CARDIAC: Normal. ABDOMEN: Soft. IMPRESSION: 1. Status post removal of infected left prosthesis. 2. History of carcinoma of the breast. PLAN: Continue with IV fluids and antibiotics as well as analgesics. MMODL / IJN: [id number] /
--- NOTE | 2023-02-25 04:29 | PN ---
PROGRESS NOTE DATE OF SERVICE: 02/24/2023 CHIEF COMPLAINT: Chest pain following removal of infected breast prosthesis. HISTORY OF PRESENT ILLNESS: This lady is doing fairly well. She is depressed. REVIEW OF SYSTEMS: She is still having a lot of chest wall pain and she did run a fever last night. PHYSICAL EXAMINATION: CHEST: Clear. CARDIAC: Normal. IMPRESSION: 1. Status post removal of infected left breast prosthesis. 2. History of carcinoma of the breast. 3. Depression. PLAN: Continue with IV fluids and antibiotics and local wound care. MMODL / IJN: [id number] /
--- NOTE | 2023-02-25 06:29 | PN ---
PROGRESS NOTE DATE OF SERVICE: 02/23/2023 CHIEF COMPLAINT: Infected left breast prosthesis. HISTORY OF PRESENT ILLNESS: This lady is still having quite a bit of discomfort. She has had no chills. PHYSICAL EXAMINATION: LUNGS: Breath sounds are heard bilaterally. CARDIAC: Normal. She has a binder on the chest. IMPRESSION: 1. Status post removal of infected left breast prosthesis. 2. History of carcinoma of the breast. PLAN: Continue with IV fluids and antibiotics and we will increase the frequency of her morphine to every 3 hours. MMODL / IJN: [id number] /
--- NOTE | 2023-02-25 06:46 | PN ---
PROGRESS NOTE DATE OF SERVICE: 02/21/2023 CHIEF COMPLAINT: Infected left breast prosthesis. HISTORY OF PRESENT ILLNESS: This lady is having quite a bit of discomfort. The prosthesis has been removed. She is on IV antibiotics. PHYSICAL EXAMINATION: CHEST: Clear. CARDIAC: Normal. ABDOMEN: Soft and nontender. IMPRESSION: 1. Infected left breast prosthesis. 2. Carcinoma of the breast. PLAN: Continue with local wound care and IV antibiotics. MMODL / IJN: [id number] /
--- NOTE | 2023-02-25 07:50 | P.PN ---
Subjective Progress Note Date: 02/24/23 Principal diagnosis: Left breast abscess and infected implant Patient is a 32-year-old female with a past medical history significant for breast cancer in this patient who is status post bilateral mastectomy completed on 01/14/2023 along with bilateral prepectoral implant reconstruction patient is presenting to the hospital with increasing pain swelling redness and drainage especially to the left breast area, patient has been diagnosed with infected left breast implant and status post removal of the infected left breast implant and irrigation of the wound completed on 02/18/2023. on today's evaluation that is 02/24/2023, the patient is afebrile, the patient pain to the left chest wall has decreased in intensity, the patient denies nausea vomiting abdominal pain or diarrhea has been reported Objective - Vital Signs Vital signs: Vital Signs Temp 99.9 F H 02/24/23 07:56 Pulse 96 02/24/23 07:56 Resp 18 02/24/23 07:56 BP 119/81 02/24/23 07:56 Pulse Ox 95 02/24/23 07:56 FiO2 Intake & Output 02/23/23 02/24/23 02/24/23 18:59 06:59 18:59 Intake Total 360 170 Balance 360 170 Intake: Intake, IV Titration 170 Amount Sodium Chloride 0.9% 1, 120 000 ml @ 75 mls/hr IV . [id number] [facility] Rx#:[id number] ceFAZolin 2 gm In Sodium 50 Chloride 0.9% 50 ml @ 100 mls/hr IVPB Q8HR [facility] Rx# :[id number] Oral 360 Other: Voiding Method Toilet Toilet # Voids 4 1 - Exam GENERAL DESCRIPTION: A middle-aged female lying in bed in no distress RESPIRATORY SYSTEM: Unlabored breathing , decreased breath sounds at bases HEART: S1 S2 regular rate and rhythm , ABDOMEN: Soft , no tenderness Left breast/ chest wall wound is currently dressed - Labs CBC & Chem 7: 02/24/23 17:09 02/24/23 17:09 Labs: Microbiology - Last 24 Hours (Table) 02/18/23 15:26 Gram Stain - Final Breast - Left Wound Culture - Final Staph aureus 02/18/23 02:05 Blood Culture - Final Blood 02/18/23 02:20 Blood Culture - Final Blood Assessment and Plan (1) Left breast abscess Current Visit: Yes Status: Acute Code(s): N61.1 - ABSCESS OF THE BREAST AND NIPPLE SNOMED Code(s): 12689561 Plan: 1patient presented to hospital with left breast cellulitis concerning for possible abscess in this patient who is status post bilateral mastectomy and implant placement a few weeks ago failing outpatient oral Keflex therapy concern for possible community associated MRSA or gram-negative infection 2Patient is status post surgical drainage and deep culture, along with removal of the infected implant on 02/18/2023, cultures currently MSSA 3Patient has shown clinical improvement and to continue cefazolin 2 g every 8 hours while inpatient and will transition to short course of IV Rocephin 2 g daily on discharge local wound care to continue with wet-to-dry packing of the wound surgery and monitor clinical course closely discussed with showcase maker Time with Patient: Less than 30
[2023-02-25 08:02] VITALS: RESP 18; TEMP 98.5
[2023-02-25] MEDS: MORPHINE SULFATE 4 MG/ML SYRINGE IVP PRN ×2 (08:34→12:15)
[2023-02-25] MEDS: POTASSIUM CHLORIDE ER 10 MEQ TAB.ER.PRT PO SCH (08:35)
[2023-02-25] MEDS: Cariprazine Hcl [Vraylar] 3 MG Capsule PO SCH (08:35)
[2023-02-25] MEDS: busPIRone HCl 5 MG TAB PO SCH (08:35)
[2023-02-25] MEDS: SERTRALINE 100 MG TAB PO SCH (08:35)
[2023-02-25] MEDS: CYANOCOBALAMIN 500 MCG TAB PO SCH (08:35)
[2023-02-25] MEDS: PANTOPRAZOLE 40 MG TABLET PO SCH (08:35)
[2023-02-25 12:14] VITALS: BP 117/74; PULSE 71
[2023-02-25] MEDS: SODIUM CHLORIDE 0.9% 1,000 ML IV SCH (12:19)
--- NOTE | 2023-02-25 12:27 | P.PN ---
Subjective Progress Note Date: 02/25/23 Principal diagnosis: Left breast abscess and infected implant Patient is a 32-year-old female with a past medical history significant for breast cancer in this patient who is status post bilateral mastectomy completed on 01/14/2023 along with bilateral prepectoral implant reconstruction patient is presenting to the hospital with increasing pain swelling redness and drainage especially to the left breast area, patient has been diagnosed with infected left breast implant and status post removal of the infected left breast implant and irrigation of the wound completed on 02/18/2023. on today's evaluation that is 02/25/2023, the patient remains to be afebrile, the patient pain to the left chest wall is controlled with current medication, the patient denies nausea vomiting abdominal pain or diarrhea has been reported by the nursing staff Objective - Vital Signs Vital signs: Vital Signs Temp 98.5 F 02/25/23 11:40 Pulse 71 02/25/23 11:40 Resp 18 02/25/23 11:40 BP 117/74 02/25/23 11:40 Pulse Ox 94 L 02/25/23 11:40 FiO2 Intake & Output 02/24/23 02/25/23 02/25/23 18:59 06:59 18:59 Intake Total 950 Balance 950 Weight 86.183 kg Intake: Intake, IV Titration 950 Amount Sodium Chloride 0.9% 1, 900 000 ml @ 75 mls/hr IV . [id number] [facility] Rx#:[id number] ceFAZolin 2 gm In Sodium 50 Chloride 0.9% 50 ml @ 100 mls/hr IVPB Q8HR [facility] Rx# :[id number] Other: Voiding Method Toilet # Voids 2 - Exam GENERAL DESCRIPTION: A middle-aged female lying in bed in no distress RESPIRATORY SYSTEM: Unlabored breathing , decreased breath sounds at bases HEART: S1 S2 regular rate and rhythm , ABDOMEN: Soft , no tenderness Left breast/ chest wall wound is currently dressed - Labs CBC & Chem 7: 02/24/23 17:09 02/24/23 17:09 Labs: Abnormal Lab Results - Last 24 Hours (Table) 02/24/23 Range/Units 17:09 Carbon Dioxide 31 H (22-30) mmol/L Glucose 114 H (74-99) mg/dL Alkaline Phosphatase 138 H (38-126) U/L Total Protein 6.2 L (6.3-8.2) g/dL Albumin 3.3 L (3.5-5.0) g/dL Microbiology - Last 24 Hours (Table) 02/18/23 15:26 Gram Stain - Final Breast - Left Wound Culture - Final Staph aureus Assessment and Plan (1) Left breast abscess Current Visit: Yes Status: Acute Code(s): N61.1 - ABSCESS OF THE BREAST AND NIPPLE SNOMED Code(s): 36286648 Plan: 1patient presented to hospital with left breast cellulitis concerning for possible abscess in this patient who is status post bilateral mastectomy and implant placement a few weeks ago failing outpatient oral Keflex therapy concern for possible community associated MRSA or gram-negative infection 2Patient is status post surgical drainage and deep culture, along with removal of the infected implant on 02/18/2023, cultures currently MSSA 3Patient has shown clinical improvement and patient did have a normal white count, plan is to to continue cefazolin 2 g every 8 hours while inpatient and will transition to short course of IV Rocephin 2 g daily on discharge 7-10 days 4- local wound care to continue with wet-to-dry packing of the wound surgery and monitor clinical course closely Time with Patient: Less than 30
--- NOTE | 2023-02-25 23:34 | DS ---
DISCHARGE SUMMARY CHIEF COMPLAINT: Pain, fever, and infection in the left chest. HISTORY OF PRESENT ILLNESS AND PHYSICAL EXAMINATION: Details of this lady's history and physical can be found in the initial workup. LABORATORY STUDIES: While she was in the hospital, she had laboratory studies, details of which can be found in the laboratory section of her chart. COURSE IN THE HOSPITAL: After admission, she was placed on bedrest and started on intravenous fluids and antibiotics. She was found to have an infection in the left chest incision where she recently had an implant. This had to be removed, and then she was started on frequent dressing changes with packings as well as IV antibiotics. She experienced quite a bit of pain in that area while she was in the hospital, but it was felt by Infectious Disease and Surgery that she could go home on the , and she will go home on IV antibiotic regimen. FINAL DIAGNOSES: 1. Infection of left breast prosthesis. 2. Carcinoma of the breast. OPERATIONS: Removal of infected breast prosthesis. CONSULTATIONS: Surgery and Infectious Disease. CONDITION: She is improved. MMODL / IJN: [id number] /
== END 2023-02-25 16:09 | disposition home health service (06) | DRG 711 ==
LOC: EC 01:01 → 5NMEDONC 04:46
PROVIDERS: ADMIT Family Medicine; ATTEND Family Medicine
PROC: 0HPU0JZ Removal of Synthetic Substitute from Left Breast, Open Approach (ICD-10-PCS; principal; 2023-02-18 18:35)
DX: T85.79XA Infection and inflammatory reaction due to other internal prosthetic devices, implants and grafts, initial encounter (principal); T81.32XA Disruption of internal operation (surgical) wound, not elsewhere classified, initial encounter; C50.912 Malignant neoplasm of unspecified site of left female breast; F31.9 Bipolar disorder, unspecified; B95.61 Methicillin susceptible Staphylococcus aureus infection as the cause of diseases classified elsewhere; F17.290 Nicotine dependence, other tobacco product, uncomplicated; G35 Multiple sclerosis; I10 Essential (primary) hypertension; F41.9 Anxiety disorder, unspecified; F43.10 Post-traumatic stress disorder, unspecified; M19.90 Unspecified osteoarthritis, unspecified site; I83.90 Asymptomatic varicose veins of unspecified lower extremity; I99.9 Unspecified disorder of circulatory system; R29.810 Facial weakness; Z79.899 Other long term (current) drug therapy; Z86.73 Personal history of transient ischemic attack (TIA), and cerebral infarction without residual deficits; Z90.13 Acquired absence of bilateral breasts and nipples; Z87.11 Personal history of peptic ulcer disease; Z91.02 Food additives allergy status; Y83.1 Surgical operation with implant of artificial internal device as the cause of abnormal reaction of the patient, or of later complication, without mention of misadventure at the time of the procedure; Z88.8 Allergy status to other drugs, medicaments and biological substances; Z88.2 Allergy status to sulfonamides; Z71.6 Tobacco abuse counseling; Z86.14 Personal history of Methicillin resistant Staphylococcus aureus infection; Z28.310 Unvaccinated for COVID-19
CPT/HCPCS: 36415; 71046; 80048; 80053; 80202; 81001; 81025; 82565; 83605; 85025; 86140; 87040; 87070; 87075; 87077; 87186; 87205; 88300; 93005; 96365; 96366; 96375; 96376; 99284

== ENCOUNTER 2023-03-06 15:14 | Day surgery (SDC) | payer OTHER ==
[2023-03-06] MEDS ORDERED: LACTATED RINGERS 1,000 ML IV ONE (16:15)
[2023-03-06] MEDS ORDERED: ONDANSETRON 4 MG/2 ML VIAL ONE (16:17)
[2023-03-06] MEDS ORDERED: FAMOTIDINE 20 MG/2 ML VIAL IVP ONE (16:23)
[2023-03-06] MEDS ORDERED: ONDANSETRON 4 MG/2 ML VIAL IVP ONE (16:24)
[2023-03-06] MEDS ORDERED: PROPOFOL 10 MG/ML 20 ML VIAL IV ONE (17:55)
[2023-03-06] MEDS ORDERED: MIDAZOLAM 2 MG/2 ML VIAL ONE (17:55)
[2023-03-06] MEDS ORDERED: fentaNYL (PF) 50 MCG/ML 2 ML AMP ONE (17:55)
[2023-03-06] MEDS ORDERED: LIDOCAINE 2% INJ 20 MG/ML (2 ML VIAL) ONE (17:55)
[2023-03-06] MEDS ORDERED: SUCCINYLCHOLINE CHLORIDE 200 MG/10 ML VIAL IV ONE (17:55)
[2023-03-06 18:34] VITALS: RESP 16; TEMP 97
[2023-03-06] MEDS ORDERED: HYDROmorphone 0.5 MG/0.5 ML SYRINGE IVP ONE (19:05)
[2023-03-06 19:38] VITALS: BP 132/82; PULSE 80
--- NOTE | 2023-03-10 09:16 | P.OP ---
Date of Procedure: 03/06/23 Preoperative Diagnosis: Front Desk Representative protruding through skin on right mastectomy site Postoperative Diagnosis: Same Procedure(s) Performed: Removal of stripper preliminary and irrigation of mastectomy site Anesthesia: VIC Surgeon: Maxine Salinas Estimated Blood Loss (ml): 5 IV fluids (ml): 200 Pathology: other (Cultures obtained at mastectomy site) Condition: stable Disposition: same day Indications for Procedure: Front Desk Representative extruding through skin right mastectomy site Operative Findings: Front Desk Representative extending through skin right mastectomy site Description of Procedure: The patient was taken to the operating room and following induction of anesthesia the right mastectomy site was prepped and draped in a sterile fashion. [place] were removed from the lateral aspect of the incision. The stripper preliminary which was protruding through the inferior aspect of the skin on the site was identified. This was easily extruded. Fluid was identified in the mastectomy pocket and cultures were obtained. The wound was well irrigated. No evidence of bleeding was identified. The wound was packed using moist Kerlix. The patient tolerated the procedure in stable condition.
== END 2023-03-06 19:57 | disposition home or self-care (01) ==
LOC: OR 15:14
PROVIDERS: ATTEND Surgery
DX: Z90.11 Acquired absence of right breast and nipple (principal); I10 Essential (primary) hypertension; F17.290 Nicotine dependence, other tobacco product, uncomplicated; Z86.73 Personal history of transient ischemic attack (TIA), and cerebral infarction without residual deficits; Z88.2 Allergy status to sulfonamides; Z79.899 Other long term (current) drug therapy
CPT/HCPCS: 81025; 87070; 87205; 87075; 11971; J2250; J0330; J2405; J3010; J1642; J2704; J1170; J2001

== ENCOUNTER → 2023-03-06 | Outpatient (CLI) | payer OTHER ==
--- NOTE | 2023-03-06 10:28 | P.PN ---
Subjective Progress Note Date: 03/06/23 Principal diagnosis: infected right breast implant Yoko is a 32-year-old white female status post bilateral mastectomy on . She underwent bilateral prepectoral implant reconstruction. Approximately she began complaining of erythema of the left breast. She was started on Keflex. Despite this she developed fevers and was seen in the emergency department with drainage from the area of the left breast incision. She also been seen by plastic surgery and cultures have been obtained. the implant was removed on . she was hospitalized for approximately 1 week at that time. She has been followed by infectious disease. She has been receiving IV antibiotic therapy daily at the hospital. The patient states that he states that last night she began having drainage from the right implant site. She is not complaining of any fever or chills. She has not seen the plastic surgeon since before the left breast implant has been removed. The patient has been receiving IV Rocephin. Past surgical history: Cholecystectomy Tubal ligation Bilateral mastectomy with implant reconstruction Port-A-Cath placement removal of left breast implant Medical history: Breast cancer CVA/TIA Hypertension Osteoarthritis Vascular disorder Multiple sclerosis Anxiety/bipolar/depression/PTSD Patient does have a history of MRSA in the past; this cultures did not show MRSA Social history: Alcohol: Negative Nicotine: Salazar Drugs: Uses TCH vape pen Review of systems: HEENT: MS Lungs: Short of breath at times Cardiac: Has had workup for chest pain in the past GI: Peptic ulcer disease Neurologic: Straight of CVA/TIA History of multiple sclerosis Psychiatric: Anxiety/depression/bipolar/PTSD - Constitutional Constitutional: Reports as per HPI - Breasts Breasts: bilateral: as per HPI (Left breast invasive ductal carcinoma) - Cardiovascular Cardiovascular: Reports chest pain, Reports high blood pressure - Respiratory Respiratory: Reports as per HPI - Gastrointestinal Comment: History of peptic ulcer disease - Genitourinary (Female) Genitourinary: Denies dysuria, Denies hematuria - Musculoskeletal Musculoskeletal: Reports myalgias - Integumentary Integumentary: Reports as per HPI - Neurological Neurological: Reports as per HPI - Psychiatric Comment: Bipolar/posttraumatic stress disease Psychiatric: Reports anxiety, Reports depression - Hematologic/Lymphatic Hematologic/Lymphatic: Reports as per HPI - Allergic/Immunologic Allergic/Immunologic: Reports as per HPI Past Medical History Past Medical History: Cancer, CVA/TIA, Hypertension, Osteoarthritis (OA), Vascular Disorder Additional Past Medical History / Comment(s): MS, States hx. head injury 6--20,heart murmur,no Rx for htn,varicose veins, carpal tunnel wrist and elbows,bruises easily, vertigo, Breast CA, current chemo, lupus, anemia, with head injury tia, lft facial droop very slight, will be worked up for fibromayalgia once done with ca tx. History of Any Multi-Drug Resistant Organisms: MRSA Date of last positivie culture/infection: 2004.2021 MDRO Source:: right breast lft breast Past Surgical History: Breast Surgery, Cholecystectomy, Tubal Ligation Additional Past Surgical History / Comment(s): She has 4 children by natural childbirth. Lt breast biopsy. LN biopsy, med port placement, bilateral mastectomy 01/14/23 with tissue tuckpointer Past Anesthesia/Blood Transfusion Reactions: No Reported Reaction Past Psychological History: Anxiety, Bipolar, Depression, PTSD Smoking Status: Former smoker, Vaper Past Alcohol Use History: None Reported Past Drug Use History: Marijuana - Past Family History Mother Family Medical History: No Reported History Additional Family Medical History / Comment(s): Mat. grandfather & 2 cousins dx. with hemophilia. Medications and Allergies Home Medications Medication Instructions Recorded Confirmed Type Sertraline HCl [Zoloft] 100 mg PO BID 03/20/21 02/18/23 History Pantoprazole [Protonix] 40 mg PO DAILY 11/23/21 02/18/23 History busPIRone HCL 15 mg PO BID 04/22/22 02/18/23 History Cholecalciferol (Vitamin D3) 125 mcg PO DAILY 08/01/22 02/18/23 History [Vitamin D3 (125 MCG = 5,000 IU)] Cyanocobalamin (Vitamin B-12) 1,000 mcg PO DAILY 08/01/22 02/18/23 History [Vitamin B-12] OLANZapine [ZyPREXA] 2.5 mg PO HS 08/01/22 02/18/23 History Ibuprofen [Motrin] 800 mg PO Q8H PRN 11/08/22 02/18/23 History QUEtiapine [SEROquel] 50 mg PO HS 11/08/22 02/18/23 History busPIRone HCL 15 mg PO DAILY PRN 11/08/22 02/18/23 History Butalb/Acetaminophen/Caffeine 1 cap PO DAILY PRN 12/06/22 02/18/23 History [Fioricet 50-300-40 mg Capsule] Cyclobenzaprine [Flexeril] 10 mg PO HS 12/06/22 02/18/23 History Potassium Chloride [Klor-Con M10] 10 meq PO DAILY 12/06/22 02/18/23 History Acetaminophen/Diphenhydramine 1 tab PO HS PRN 01/09/23 02/18/23 History [Tylenol PM 500-25mg] Cariprazine HCl [Vraylar] 3 mg PO DAILY 01/09/23 02/18/23 History Acetaminophen-Codeine 300-30mg 1 tab PO Q6H PRN 3 Days #24 tablet 01/16/23 02/18/23 Rx [Tylenol w/codeine #3] Cephalexin [Keflex] 500 mg PO Q6HR 1 Days #20 cap 02/13/23 02/18/23 Rx Cyclobenzaprine [Flexeril] 10 mg PO TID 02/18/23 02/18/23 History Allergies Allergy/AdvReac Type Severity Reaction Status Date / Time aloe Allergy severe Verified 02/18/23 07:29 itching Sulfa (Sulfonamide Allergy Anaphylaxis Verified 02/18/23 07:29 Antibiotics) Objective - Constitutional General appearance: Present: cooperative - EENT Eyes: Present: EOMI ENT: Present: hearing grossly normal - Neck Neck: Present: normal ROM - Respiratory Respiratory: bilateral: CTA - Cardiovascular Heart sounds: normal: S1, S2 - Gastrointestinal General gastrointestinal: Present: soft - Integumentary Integumentary: Present: normal turgor - Musculoskeletal Musculoskeletal: Present: gait normal - Psychiatric Psychiatric: Present: A&O x's 3, appropriate affect, intact judgment & insight - Additional findings Additional findings: breast examination: Right breast: Incision is clean and dry however the inferior aspect there is erosion through the skin with the implant protruding out she has some green drainage from the site and cultures have been obtained Left chest wall: Dressing change this is clean and dry no evidence of infection Assessment and Plan Assessment: Impression: Breast cancer CVA/TIA Hypertension Osteoarthritis Vascular disorder Multiple sclerosis Anxiety/bipolar/depression/PTSD Infected right breast implant with extrusion of the implant Plan: Continue dressing change on the left side Removal of right breast implant in the operating room CC: Dr. Pham
[2023-03-06 12:22] LABS: HCT 39.8 % (34.0-46.0); MCH 30.6 pg (25.0-35.0); MCHC 32.7 g/dL (31.0-37.0); MCV 93.8 fL (80.0-100.0); Mean Platelet Volume 7.5; Platelet Count 268 k/uL (150-450); RBC 4.24 m/uL (3.80-5.40); RDW 14.2 % (11.5-15.5); WBC 6.6 k/uL (3.8-10.6)
[2023-03-06 12:40] LABS: Potassium 4.7 mmol/L (3.5-5.1)
--- NOTE | 2023-03-06 18:30 | P.OP ---
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 on right mastectomy site Postoperative Diagnosis: Same Procedure(s) Performed: Removal of lap layer and irrigation of mastectomy site Anesthesia: VIC Surgeon: Maxine Salinas Estimated Blood Loss (ml): 5 IV fluids (ml): 200 Pathology: other (Cultures obtained at mastectomy site) Condition: stable Disposition: same day Indications for Procedure: Transportation Security Officer extruding through skin right mastectomy site Operative Findings: Transportation Security Officer extending through skin right mastectomy site Description of Procedure: The patient was taken to the operating room and following induction of anesthesia the right mastectomy site was prepped and draped in a sterile fashion. [place] were removed from the lateral aspect of the incision. The lap layer which was protruding through the inferior aspect of the skin on the site was identified. This was easily extruded. Fluid was identified in the mastectomy pocket and cultures were obtained. The wound was well irrigated. No evidence of bleeding was identified. The wound was packed using moist Kerlix. The patient tolerated the procedure in stable condition.
== END | disposition home or self-care (01) ==
LOC: WWCWWP 09:23
PROVIDERS: ATTEND Surgery
DX: Z85.3 Personal history of malignant neoplasm of breast (principal); I63.9 Cerebral infarction, unspecified; G45.9 Transient cerebral ischemic attack, unspecified; I10 Essential (primary) hypertension; M19.90 Unspecified osteoarthritis, unspecified site; G35 Multiple sclerosis; I73.9 Peripheral vascular disease, unspecified; F31.9 Bipolar disorder, unspecified; T85.42XA Displacement of breast prosthesis and implant, initial encounter; Z91.048 Other nonmedicinal substance allergy status; Z88.2 Allergy status to sulfonamides; F17.200 Nicotine dependence, unspecified, uncomplicated
CPT/HCPCS: 80051; 85027; 87070; 87075; 87205

== ENCOUNTER → 2023-03-07 | Outpatient (CLI) | payer OTHER ==
[2023-03-07 11:40] VITALS: BP 140/93; PULSE 91; RESP 16; TEMP 98.8
--- NOTE | 2023-03-07 12:11 | P.PN ---
Progress Note - Text Progress Note Date: 03/07/23 POD #1 removal of right breast control area operator The patient is postop day #1 removal of right breast control area operator. The control area operator had begun to erode through the skin of the inferior aspect of the mastectomy site. She has done well postprocedure. The wound was repacked. The patient is continuing to get IV antibiotic therapy. Cultures were obtained and are pending from the right side. The patient will follow up next week The patient will continue to do dressing changes at home CC: Dr. Pham
== END ==
LOC: WWCWWP 11:06
PROVIDERS: ATTEND Surgery
DX: Z45.811 Encounter for adjustment or removal of right breast implant (principal); Z88.2 Allergy status to sulfonamides; Z91.048 Other nonmedicinal substance allergy status

== ENCOUNTER → 2023-03-14 | Outpatient (CLI) | payer OTHER ==
[2023-03-14 10:44] VITALS: BP 131/91; PULSE 91; RESP 17; TEMP 97.8
--- NOTE | 2023-03-14 11:04 | P.PN ---
Subjective Progress Note Date: 03/14/23 nfected right breast implant Yoko is a 32-year-old white female status post bilateral mastectomy on . She underwent bilateral prepectoral implant reconstruction. Approximately she began complaining of erythema of the left breast. She was started on Keflex. Despite this she developed fevers and was seen in the emergency department with drainage from the area of the left breast incision. She also been seen by plastic surgery and cultures were obtained. The implant was removed on . she was hospitalized for approximately 1 week at that time. She has been followed by infectious disease. She has been receiving IV antibiotic therapy daily at the hospital. The patient stated that she she began having drainage from the right implant site. She was not complaining of any fever or chills. The right breast implant was removed and . Cultures did not show any organisms of concern. The patient has completed IV Rocephin, and is presently getting oral antibiotics. She is following with infectious disease. The patient is complaining of some pain in her right lateral chest wall. It appears to be pinpoint and constant. She was initially seen in April 2022 Re: The mass in her left breast. A bilateral mammogram have been done and [address] which showed a dense breast tissue and no discrete mass. An ultrasound revealed a 2 x 2.4 cm mass at the 3 o'clock position of the left breast. She underwent a biopsy of this on which revealed invasive poorly differentiated ductal carcinoma. She subsequently underwent neoadjuvant chemotherapy. She then underwent bilateral mastectomy and [id number]. An Oncotype was 54. The tumor was 6 mm lymph node negative This was a T1 N0 ER positive AL negative HER-2 negative G2 lesion following her neoadjuvant chemotherapy. The tumor size prior to the neoadjuvant treatment was a T2 lesion. Past surgical history: Cholecystectomy Tubal ligation Bilateral mastectomy with implant reconstruction Port-A-Cath placement removal of bilateral breast implant Medical history: Breast cancer CVA/TIA Hypertension Osteoarthritis Vascular disorder Multiple sclerosis Anxiety/bipolar/depression/PTSD Patient does have a history of MRSA in the past; this cultures did not show MRSA Social history: Alcohol: Negative Nicotine: Salazar Drugs: Uses TCH vape pen Review of systems: HEENT: MS Lungs: Short of breath at times Cardiac: Has had workup for chest pain in the past GI: Peptic ulcer disease Neurologic: Straight of CVA/TIA History of multiple sclerosis Psychiatric: Anxiety/depression/bipolar/PTSD - Constitutional Constitutional: Reports as per HPI - Breasts Breasts: bilateral: as per HPI (Left breast invasive ductal carcinoma) - Cardiovascular Cardiovascular: Reports chest pain, Reports high blood pressure - Respiratory Respiratory: Reports as per HPI - Gastrointestinal Comment: History of peptic ulcer disease - Genitourinary (Female) Genitourinary: Denies dysuria, Denies hematuria - Musculoskeletal Musculoskeletal: Reports myalgias - Integumentary Integumentary: Reports as per HPI - Neurological Neurological: Reports as per HPI - Psychiatric Comment: Bipolar/posttraumatic stress disease Psychiatric: Reports anxiety, Reports depression - Hematologic/Lymphatic Hematologic/Lymphatic: Reports as per HPI - Allergic/Immunologic Allergic/Immunologic: Reports as per HPI Past Medical History Past Medical History: Cancer, CVA/TIA, Hypertension, Osteoarthritis (OA), Vascular Disorder Additional Past Medical History / Comment(s): MS, States hx. head injury 03-15-20,heart murmur,no Rx for htn,varicose veins, carpal tunnel wrist and elbows,bruises easily, vertigo, Breast CA, current chemo, lupus, anemia, with head injury tia, lft facial droop very slight, will be worked up for fibromayalgia once done with ca tx. History of Any Multi-Drug Resistant Organisms: MRSA Date of last positivie culture/infection: MDRO Source:: right breast lft breast Past Surgical History: Breast Surgery, Cholecystectomy, Tubal Ligation Additional Past Surgical History / Comment(s): She has 4 children by natural childbirth. Lt breast biopsy. LN biopsy, med port placement, bilateral mastectomy 01/14/23 with tissue ultrasound sonographer Past Anesthesia/Blood Transfusion Reactions: No Reported Reaction Past Psychological History: Anxiety, Bipolar, Depression, PTSD Smoking Status: Former smoker, Vaper Past Alcohol Use History: None Reported Past Drug Use History: Marijuana - Past Family History Mother Family Medical History: No Reported History Additional Family Medical History / Comment(s): Mat. grandfather & 2 cousins dx. with hemophilia. Medications and Allergies Home Medications Medication Instructions Recorded Confirmed Type Sertraline HCl [Zoloft] 100 mg PO BID 03/20/21 02/18/23 History Pantoprazole [Protonix] 40 mg PO DAILY 11/23/21 02/18/23 History busPIRone HCL 15 mg PO BID 04/22/22 02/18/23 History Cholecalciferol (Vitamin D3) 125 mcg PO DAILY 08/01/22 02/18/23 History [Vitamin D3 (125 MCG = 5,000 IU)] Cyanocobalamin (Vitamin B-12) 1,000 mcg PO DAILY 08/01/22 02/18/23 History [Vitamin B-12] OLANZapine [ZyPREXA] 2.5 mg PO HS 08/01/22 02/18/23 History Ibuprofen [Motrin] 800 mg PO Q8H PRN 11/08/22 02/18/23 History QUEtiapine [SEROquel] 50 mg PO HS 11/08/22 02/18/23 History busPIRone HCL 15 mg PO DAILY PRN 11/08/22 02/18/23 History Butalb/Acetaminophen/Caffeine 1 cap PO DAILY PRN 12/06/22 02/18/23 History [Fioricet 50-300-40 mg Capsule] Cyclobenzaprine [Flexeril] 10 mg PO HS 12/06/22 02/18/23 History Potassium Chloride [Klor-Con M10] 10 meq PO DAILY 12/06/22 02/18/23 History Acetaminophen/Diphenhydramine 1 tab PO HS PRN 01/09/23 02/18/23 History [Tylenol PM 500-25mg] Cariprazine HCl [Vraylar] 3 mg PO DAILY 01/09/23 02/18/23 History Acetaminophen-Codeine 300-30mg 1 tab PO Q6H PRN 3 Days #24 tablet 01/16/23 02/18/23 Rx [Tylenol w/codeine #3] Cephalexin [Keflex] 500 mg PO Q6HR 1 Days #20 cap 02/13/23 02/18/23 Rx Cyclobenzaprine [Flexeril] 10 mg PO TID 02/18/23 02/18/23 History Allergies Allergy/AdvReac Type Severity Reaction Status Date / Time aloe Allergy severe Verified 02/18/23 07:29 itching Sulfa (Sulfonamide Allergy Anaphylaxis Verified 02/18/23 07:29 Antibiotics) Objective - Vital Signs Vital signs: Vital Signs Temp 97.8 F 03/14/23 10:40 Pulse 91 03/14/23 10:40 Resp 17 03/14/23 10:40 BP 131/91 03/14/23 10:40 Pulse Ox 98 03/14/23 10:40 FiO2 Intake & Output 03/13/23 03/14/23 03/14/23 18:59 06:59 18:59 Weight 86.183 kg - Constitutional General appearance: Present: cooperative - EENT Eyes: Present: EOMI ENT: Present: hearing grossly normal - Neck Neck: Present: normal ROM - Respiratory Respiratory: bilateral: CTA - Cardiovascular Heart sounds: normal: S1, S2 - Integumentary Integumentary Comment(s): Bilateral mastectomy sites clean and dry Sutures removed from right side Wounds packed No evidence of infection on today's exam Integumentary: Present: normal turgor Assessment and Plan Assessment: Impression: Breast cancer CVA/TIA Hypertension Osteoarthritis Vascular disorder Multiple sclerosis Anxiety/bipolar/depression/PTSD Infected right breast implant with extrusion of the implant/removed Right chest wall pain Plan: Continue dressing change bilateral Right rib x-rays attention to the area of discomfort bone scan secondary to chest wall pain Follow-up next week Follow up radiation oncology Patient completed chemotherapy, follow with medical oncology for hormonal ther apy check to see if genetic testing done This time the patient is not interested in immediate reconstruction. She thinks she may want it down the road in a year or so. CC: Dr. Pham Additional CC's: Donn Pham
--- NOTE | 2023-03-14 13:41 | XR ---
EXAMINATION TYPE: XR ribs RT DATE OF EXAM: 03/14/2023 1:19 PM INDICATION: Patient age:Female; 33 years old; Reason for study: Z85.3; . COMPARISON: Chest radiograph 02/24/2023 TECHNIQUE: Frontal and oblique views of the right ribs with frontal chest radiograph. FINDINGS: The ribs have a normal appearance. No evidence of fracture. Overall, the lungs are clear. The cardiac silhouette is normal in size. The remaining osseous structures are intact. Right chest wall [id number] tip in the superior vena cava. Right upper quadrant course thickening clips. IMPRESSION: No acute osseous pathology.
== END ==
LOC: WWCWWP 10:20
PROVIDERS: ATTEND Surgery
DX: Z85.3 Personal history of malignant neoplasm of breast (principal); I63.9 Cerebral infarction, unspecified; I10 Essential (primary) hypertension; M19.90 Unspecified osteoarthritis, unspecified site; K55.9 Vascular disorder of intestine, unspecified; F41.9 Anxiety disorder, unspecified; F31.9 Bipolar disorder, unspecified; Z98.82 Breast implant status; Z91.048 Other nonmedicinal substance allergy status; Z88.2 Allergy status to sulfonamides; F17.200 Nicotine dependence, unspecified, uncomplicated

== ENCOUNTER → 2023-03-19 | Outpatient (CLI) | payer OTHER ==
--- NOTE | 2023-03-19 08:57 | P.PN ---
Progress Note - Text Progress Note Date: 03/19/23 Yoko is a 32-year-old white female status post bilateral mastectomy on . She underwent bilateral prepectoral implant reconstruction. Approximately she began complaining of erythema of the left breast. She was started on Keflex. Despite this she developed fevers and was seen in the emergency department with drainage from the area of the left breast incision. She also been seen by plastic surgery and cultures were obtained. The implant was removed on . She was hospitalized for approximately 1 week at that time. She has been followed by infectious disease. She received IV antibiotic therapy daily at the hospital. The patient stated that she she began having d rainage from the right implant site. The implant began extruding from the inferior aspect of the skin. This was not at the incision site. She was not complaining of any fever or chills. The right breast implant was removed and . Cultures did not show any organisms of concern. She has completed IV Rocephin, and is presently getting oral antibiotics. She is following with infectious disease. The patient on her last visit complianed of some pain in her right lateral chest wall. It appears to be pinpoint and constant. She had an x-ray 03-14-23 which did not show any lesions of concern on the ribs. A bone scan has been requested. Examination: Examination of both incisions was performed Right incision is granulating well with no evidence of infection Left incision/granulating well with no evidence of infection Impression: Patient status post neoadjuvant chemotherapy status post bilateral mastectomy with prepectoral implant reconstruction Bilateral removal of breast expanders secondary to infection on the left and secondary to erosion through the inferior aspect of the skin on the right At this time the mastectomy sites are healing well At this time the patient does not want further reconstruction Follow-up medical oncology Follow-up radiation oncology Continue wound care Follow up here in one month CC: Dr. Pham
[2023-03-19 09:09] VITALS: BP 137/91; PULSE 95; RESP 17; TEMP 98.9
== END ==
LOC: WWCWWP 08:18
PROVIDERS: ATTEND Surgery
DX: F17.200 Nicotine dependence, unspecified, uncomplicated (principal); Z90.13 Acquired absence of bilateral breasts and nipples; R07.89 Other chest pain; Z98.82 Breast implant status; Z88.2 Allergy status to sulfonamides; Z91.09 Other allergy status, other than to drugs and biological substances; Z92.21 Personal history of antineoplastic chemotherapy

== ENCOUNTER → 2023-04-01 | Outpatient (CLI) | payer OTHER ==
--- NOTE | 2023-04-01 14:33 | NM ---
EXAMINATION TYPE: NM bone scan whole body DATE OF EXAM: 04/01/2023 1:45 PM CLINICAL INDICATION:Female, 33 years old with history of Z85.3 Personal hx of breast cancer; COMPARISON: No recent priors TECHNIQUE: Intravenous administration 22.3 mCi Tc 99m MDP followed by multiple scintigraphic images o f the appendicular and axial skeleton. Small [id number] planar thorax imaging was performed. Images acquired 3 hours post injection. FINDINGS: No abnormal uptake is identified within the appendicular or axial skeleton to suggest metastatic dise ase. Focus of uptake within the right maxilla noted. There is increased uptake within the bilateral shoulder, sternoclavicular consistent with degenerativ e changes. No other photopenic areas or areas of increased activity are identified. Physiologic radiotracer activity is demonstrated in the kidneys and bladder. IMPRESSION: 1. Nothing to suggest metastatic disease. 2. Uptake within the right maxilla correlate for periodontal disease.
== END | disposition home or self-care (01) ==
LOC: RADNMMAIN 10:12
PROVIDERS: ATTEND Surgery
DX: R07.9 Chest pain, unspecified (principal); Z85.3 Personal history of malignant neoplasm of breast
CPT/HCPCS: 78306; A9503

== ENCOUNTER → 2023-06-26 | Outpatient (CLI) | payer OTHER ==
--- NOTE | 2023-06-26 10:51 | BD ---
EXAMINATION TYPE: Axial Bone Density DATE OF EXAM: 06/26/2023 CLINICAL HISTORY: 33 years old Female. ICD-10 CODE: C50.412 breast ca Height: 64.2 in Weight: 215 lbs Current Tobacco Use: vapes RISK FACTORS HISTORY OF: Active: limited Diet low in dairy products/other sources of calcium: yes If Premenopausal, do you have irregular periods: yes Frequent falls: yes falls due to vertigo and ms MEDICATIONS: Additional Medications: calcium, vitamin d, depression meds, bipolar meds, pain meds, letrazole Additional History: breast cancer with chemo EXAM MEASUREMENTS: Bone mineral densitometry was performed using the [employer]. Bone mineral density as measured about the Lumbar spine is: ----- L1-L4(G/cm2): 1.519 T Score Values are as follows: ----- L1: 2.4 ----- L2: 3.3 ----- L3: 3.1 ----- L4: 2.3 ----- L1-L4: 2.8 Z Score Values are as follows: ----- L1: 1.3 ----- L2: 2.2 ----- L3: 2.0 ----- L4: 1.2 ----- L1-L4: 1.7 Bone mineral density baseline Bone mineral density about the R hip (g/cm2): 1.143 Bone mineral density about the L hip (g/cm2): 1.182 T Score values are as follows: -----R Neck: -0.1 -----L Neck: 0.5 -----R Total: 1.1 -----L Total: 1.4 Z Score values are as follows: -----R Neck: -0.5 -----L Neck: 0.0 -----R Total: 0.4 -----L Total: 0.7 Bone mineral density baseline no FRAX pt is not in the FRAX age range IMPRESSION: Normal (Values between +1 and -1 indicate normal bone mass). Consider repeating this study in 5 year s or sooner if there is some new clinical indication. NOTE: T-SCORE=SD OF THE YOUNG ADULT MEAN.
== END | disposition home or self-care (01) ==
LOC: RADBDWWP 08:50
PROVIDERS: ATTEND Internal Medicine
DX: C50.412 Malignant neoplasm of upper-outer quadrant of left female breast (principal); Z71.3 Dietary counseling and surveillance
CPT/HCPCS: 77080

== ENCOUNTER → 2023-08-15 | Outpatient (CLI) | payer OTHER ==
[2023-08-15 13:41] VITALS: BP 141/91; PULSE 99; RESP 17; TEMP 97.9
--- NOTE | 2023-08-15 13:45 | P.PN ---
Subjective Progress Note Date: 08/15/23 Principal diagnosis: Left sided grade 3 stage II invasive ductal carcinoma T2 N0 M0 preoperative/following surgery pathologic staging T1b N0 M0 3 negative lymph nodes all margins negative stage IIA left breast invasive ductal cancer Yoko is a 32 year old female seen in consultation for Imani Beard regarding a mass in her left breast. She had a bilateral mammogram done on 04-11-22 which showed dense breast tissue and no discrete masses. She also had an ultrasound on 03-21-22 which showed a 2 by 2.4 cm mass at the 3 oclock position of the left breast. It had not changed at all. She had never had anything like this in the past. She has not had any surgery on her breast. She has not had any recent trauma or infection in her breast. About 17 years ago she had a staph infection in her left breast. This was related to nipple piercing. A biopsy revealed Grade 3 ER+, Pr-,Her2+2 invasive ductal cancer left breast Her case was presented at tumor board on 05-28-22 and neoadjuvant chemotherapy was recommended She completed 4 cycles of dose dense AC with nulasta on 09-05-22; She completed her last treatment of Taxol on 11-28-22. Discussed breast MRI to evaluate after neoadjuvant chemotherapy. 01-14-23 bilateral mastectomy with implant reconstruction. I began complaining of some erythema of the left breast. She was started on Keflex. Despite this developed fevers and was seen in the emergency department with drainage from the area of the left breast incision. She was also seen by plastic surgery and cultures were obtained. The implant was removed on . She was hospitalized for approximately 1 week at that time. She was followed by infec tious disease and received IV antibiotic therapy in the hospital. The patient stated that she had began having drainage from the right implant site in the implant began intact extruding from the inferior aspect of the skin. This was removed on 6122. Cultures did not show any organisms of concern. She continues to pack the area of the implant removal site. She initiated adjuvant endocrine therapy with ovarian suppression through monthly Lupron started on 110 79 She was not recommended to have any radiation therapy She does have a diagnosis of major depressive disorder which is being followed by Dr. Vero Jaureguiene: Pepsi and Mountain Dew all day Nicotine: stopped smoking 3 years ago; use to smoke 1 PPD for 10 years; has started vaping chocolate: rare hormones: none; BCP: stopped 10 years ago, used them for 3 years Family History: Maternal grandmother: Breast cancer Maternal aunt: Breast cancer Hormonal History: menarche: 10 , breast fed: yes, age at first : 16 periods regular LMP: now Surgical History: tubaligation gallbladder port a cath placed Medical History: Multiple sclerosis Lupus Anxiety/depression bipolar Social history: Nicotine: Negative Alcohol: Negative Drugs: Negative - Constitutional Constitutional: Denies chills, Denies fever - EENT Comment: vertigo, mastitis behind left ear Eyes: denies blurred vision, denies pain Ears: deny: decreased hearing, tinnitus Ears, nose, mouth and throat: Reports headache - Breasts Breasts: bilateral: as per HPI - Cardiovascular Cardiovascular: Reports chest pain, Denies shortness of breath - Respiratory Respiratory: Denies cough - Gastrointestinal Comment: PUD Gastrointestinal: Reports diarrhea, Denies abdominal pain, Denies nausea, Denies vomiting - Genitourinary (Female) Genitourinary: Denies dysuria, Denies hematuria - Menstruation Menstruation: Reports period normal - Musculoskeletal Comment: arthrtis in hands knees, and back and neck - Integumentary Integumentary: Denies pruritus, Denies rash - Neurological Neurological: Reports numbness, Denies weakness - Psychiatric Psychiatric: Reports anxiety, Reports depression - Endocrine Endocrine: Reports fatigue, Denies weight change - Hematologic/Lymphatic Comment: none - Allergic/Immunologic Allergic/Immunologic: Reports as per HPI Past Medical History Past Medical History: Hypertension, Osteoarthritis (OA) Additional Past Medical History / Comment(s): being worked up for MS,white matter left frontal lobe-waddles when walking, States hx. head injury 03-15-20,heart murmur,no Rx for htn,varicose veins, carpal tunnel wrist and elbows,bruises easily, vertigo History of Any Multi-Drug Resistant Organisms: MRSA Date of last positivie culture/infection: 2003 MDRO Source:: left breast Past Surgical History: Cholecystectomy, Tubal Ligation Additional Past Surgical History / Comment(s): She has 4 children by natural childbirth. Past Anesthesia/Blood Transfusion Reactions: No Reported Reaction Past Psychological History: Anxiety, Depression Smoking Status: Former smoker, Vaper Past Alcohol Use History: None Reported Additional Past Alcohol Use History / Comment(s): quit smoking 2019,quit vaping 2020 Past Drug Use History: None Reported - Past Family History Mother Family Medical History: No Reported History Additional Family Medical History / Comment(s): Mat. grandfather & 2 cousins dx. with hemophilia. Medications and Allergies Home Medications Medication Instructions Recorded Confirmed Type Sertraline HCl [Zoloft] 100 mg PO DAILY@0000 03/20/21 05/03/22 History Butalb/Acetaminophen/Caffeine 1 tab PO DAILY PRN 11/23/21 05/03/22 History [Esgic 50-325-40 mg Tablet] Ergocalciferol [Vitamin D2 (1250 1,250 cap PO Q7D 11/23/21 05/03/22 History Mcg = 71722 Iu)] Ibuprofen [Motrin] 800 mg PO Q8H 11/23/21 05/03/22 History Pantoprazole [Protonix] 40 mg PO DAILY@0000 11/23/21 05/03/22 History QUEtiapine [SEROquel] 25 mg PO BID@0000,1200 11/23/21 05/03/22 History busPIRone HCL 15 mg PO TID 04/22/22 05/03/22 History Gabapentin 600 mg PO HS 05/03/22 05/03/22 History Allergies Allergy/AdvReac Type Severity Reaction Status Date / Time aloe Allergy severe Verified 05/03/22 11:09 itching Sulfa (Sulfonamide Allergy Anaphylaxis Verified 05/03/22 11:09 Antibiotics) Objective - Vital Signs Vital signs: Vital Signs Temp 97.9 F 08/15/23 13:31 Pulse 99 08/15/23 13:31 Resp 17 08/15/23 13:31 BP 141/91 08/15/23 13:31 Pulse Ox 98 08/15/23 13:31 FiO2 Intake & Output 08/14/23 08/15/23 08/15/23 18:59 06:59 18:59 Weight 105.233 kg - Constitutional General appearance: Present: cooperative - EENT Eyes: Present: EOMI ENT: Present: hearing grossly normal - Neck Neck: Present: normal ROM - Respiratory Respiratory: bilateral: CTA - Cardiovascular Heart sounds: normal: S1, S2 - Integumentary Integumentary: Present: normal turgor - Musculoskeletal Musculoskeletal: Present: gait normal - Psychiatric Psychiatric: Present: A&O x's 3, appropriate affect, intact judgment & insight - Additional findings Additional findings: Chest wall examination: Right chest wall: Skin flaps are well healed no evidence of cancer Right axilla: No adenopathy of concern Left chest wall: Skin flaps well-healed no evidence of recurrent cancer Left axilla: No adenopathy of concern Assessment and Plan Assessment: Impression: Multiple sclerosis Lupus Anxiety/depression bipolar Stage II left breast invasive ductal carcinoma status post neoadjuvant chemotherapy/status post bilateral mastectomy with prepectoral implant reconstruction, she subsequently developed infection on the left side requiring removal of the implant and extrusion of the implant on the right side; the mastectomy sites are healed at this time Plan: She saw Dr. Adriana Lozada today from medical oncology will continue to follow with them Follow-up here in [address] Figueroa CC: Dr. Pham
== END ==
LOC: WWCWWP 11:59
PROVIDERS: ATTEND Surgery
DX: C50.912 Malignant neoplasm of unspecified site of left female breast (principal); F32.9 Major depressive disorder, single episode, unspecified; F41.9 Anxiety disorder, unspecified; G35 Multiple sclerosis; I10 Essential (primary) hypertension; M19.90 Unspecified osteoarthritis, unspecified site; N63.25 Unspecified lump in the left breast, overlapping quadrants; M32.9 Systemic lupus erythematosus, unspecified; Z17.0 Estrogen receptor positive status [ER+]; Z80.3 Family history of malignant neoplasm of breast; Z90.13 Acquired absence of bilateral breasts and nipples; Z92.21 Personal history of antineoplastic chemotherapy; Z87.891 Personal history of nicotine dependence; Z88.8 Allergy status to other drugs, medicaments and biological substances; Z88.2 Allergy status to sulfonamides

== ENCOUNTER → 2023-10-11 | Outpatient (CLI) | payer OTHER ==
--- NOTE | 2023-10-12 10:18 | MR ---
EXAMINATION TYPE: MR lumbar spine wo/w con DATE OF EXAM: 10/11/2023 11:58 AM CLINICAL INDICATION:Female, 33 years old with history of C50.412; PHH, Hx Breast cancer, Pain low yang k into legs COMPARISON: None TECHNIQUE: Multi planar, multi sequence imaging was performed utilizing: T1-weighted, T2-weighted, a nd turbo inversion recovery imaging of the lumbar spine. IV Contrast: 11 cc Gadavist. (None if empty) FINDINGS: Alignment: The lumbar vertebral bodies have preserved heights and alignment. Cord: The conus medullaris and the distal spinal cord appear unremarkable with regards to their signa l intensity and morphology. Bones/Discs: Minimal disc degeneration changes worse at L3-S5 with disc space narrowing, and osteophy balaji . Multilevel disc desiccation is present most proximal at L3-L4 L4-L5 and L5-S1. T12-L1: No evidence of significant spinal canal stenosis or neural foraminal stenosis. L1-L2: No evidence of significant spinal canal stenosis or neural foraminal stenosis. L2-L3: No evidence of significant spinal canal stenosis or neural foraminal stenosis. L3-L4: Central disc protrusion without significant spinal canal stenosis and mild bilateral neural fo raminal stenosis. Trace bilateral facet joint effusions. L4-L5: Right lateral annular fissure disc bulging with no significant spinal canal stenosis. Facet capri int arthropathy with moderate bilateral neural foraminal stenosis. Trace bilateral facet joint effusi ons. L5-S1: Disc bulge and facet joint arthropathy result in mild spinal canal and moderate bilateral neur al foraminal stenosis. No significant spinal canal or neural foraminal stenosis in the remainder of the visualized levels. Other findings: None. IMPRESSION: 1. No abnormal postcontrast. 2. L3-L4 central disc protrusion without significant spinal canal stenosis. 3. No definitive evidence significant spinal canal stenosis. 4. Mild disc degeneration with associated osteoarthritic changes.
== END | disposition home or self-care (01) ==
LOC: RADMRIMAIN 10:28
PROVIDERS: ATTEND Internal Medicine
DX: C50.412 Malignant neoplasm of upper-outer quadrant of left female breast (principal); M51.26 Other intervertebral disc displacement, lumbar region; M51.36 Other intervertebral disc degeneration, lumbar region; M47.816 Spondylosis without myelopathy or radiculopathy, lumbar region
CPT/HCPCS: 72158; A9585

== ENCOUNTER → 2024-03-29 | Outpatient (CLI) | payer OTHER ==
[2024-03-29 12:45] VITALS: BP 122/84; PULSE 77; RESP 16; TEMP 97.8
[2024-03-29] MEDS: LEUPROLIDE ACET 11.25MG SYRGKIT IM NR (12:45)
== END ==
LOC: PROCWHC3 12:22
PROVIDERS: ATTEND Internal Medicine
DX: C50.412 Malignant neoplasm of upper-outer quadrant of left female breast (principal)
CPT/HCPCS: 96402; J1950

== ENCOUNTER 2024-04-24 09:52 | Emergency (ER) | payer OTHER ==
[2024-04-24 09:55] VITALS: RESP 18
--- NOTE | 2024-04-24 10:57 | ED ---
Fall HPI - General Chief Complaint: Fall Stated Complaint: Fall-R knee/L shoulder injury Time Seen by Provider: 04/24/24 10:56 Source: patient, RN notes reviewed Mode of arrival: ambulatory Limitations: no limitations - History of Present Illness Initial Comments: 34-year-old female presented to the ER with a chief complaint of a fall. Patient states 2 days ago she was running across the street and accidentally fell. She states the top half of her body was moving faster than her legs causing her to fall. She denies any dizziness, lightheadedness, chest pain or shortness of breath prior to fall. She landed directly on her right knee and since has been experiencing increased pain in the right knee. She has been able to ambulate. She has been taking [id number]-bxq-ldcxgar ibuprofen and Amandeep wrapping her knee without relief. She also reports left shoulder pain from the fall. She describes it as a "sore" pain. She denies any head injury, loss of consciousness or blood thinner use. No other injuries. - Related Data Home Medications Medication Instructions Recorded Confirmed Sertraline HCl [Zoloft] 100 mg PO BID 03/20/21 03/29/24 busPIRone HCL 15 mg PO BID 04/22/22 03/29/24 Ibuprofen [Motrin] 800 mg PO Q8H PRN 11/08/22 03/29/24 QUEtiapine [SEROquel] 50 mg PO HS 11/08/22 03/29/24 Cyclobenzaprine [Flexeril] 10 mg PO HS 12/06/22 03/29/24 Acetaminophen/Diphenhydramine 1 tab PO HS PRN 01/09/23 03/29/24 [Tylenol PM 500-25mg] Cariprazine HCl [Vraylar] 3 mg PO DAILY 01/09/23 03/29/24 Glatiramer Acetate [Copaxone] 1 injection INJ DAILY 09/16/23 03/29/24 Allergies Allergy/AdvReac Type Severity Reaction Status Date / Time aloe Allergy severe Verified 04/24/24 09:55 itching Sulfa (Sulfonamide Allergy Anaphylaxis Verified 04/24/24 09:55 Antibiotics) Review of Systems ROS Statement: Those systems with pertinent positive or pertinent negative responses have been documented in the HPI. ROS Other: All systems not noted in ROS Statement are negative. Past Medical History Past Medical History: Cancer, CVA/TIA, Hypertension, Osteoarthritis (OA), Vascular Disorder Additional Past Medical History / Comment(s): MS, States hx. head injury 6-10-20,heart murmur,no Rx for htn,varicose veins, carpal tunnel wrist and elbows,bruises easily, vertigo, Breast CA, current chemo, lupus, anemia, with head injury tia, lft facial droop very slight, will be worked up for fibromayalgia once done with ca tx. History of Any Multi-Drug Resistant Organisms: MRSA Date of last positivie culture/infection: 2004.2021 MDRO Source:: right breast lft breast Past Surgical History: Breast Surgery, Cholecystectomy, Tubal Ligation Additional Past Surgical History / Comment(s): She has 4 children by natural childbirth. Lt breast biopsy. LN biopsy, med port placement, bilateral mastectomy 01/14/23 with tissue biophysics scientist Past Anesthesia/Blood Transfusion Reactions: No Reported Reaction Past Psychological History: Anxiety, Bipolar, Depression, PTSD Smoking Status: Current every day smoker, Vaper Past Alcohol Use History: Rare Past Drug Use History: None Reported - Past Family History Mother Family Medical History: No Reported History Additional Family Medical History / Comment(s): Mat. grandfather & 2 cousins dx. with hemophilia. General Exam Limitations: no limitations General appearance: alert, in no apparent distress Respiratory exam: Present: normal lung sounds bilaterally. Absent: respiratory distress, wheezes, rales, rhonchi, stridor Cardiovascular Exam: Present: regular rate, normal rhythm, normal heart sounds. Absent: systolic murmur, diastolic murmur, rubs, gallop, clicks Extremities exam: Present: normal inspection, full ROM, normal capillary refill, other (Mild edema to right knee. Patient has full active range of motion. Bilateral dorsalis pedis pulses 2+. Bilateral radial pulses 2+. Patient has full active range of motion of shoulders.). Absent: tenderness, pedal edema, joint swelling, calf tenderness Neurological exam: Present: alert, oriented X3, CN II-XII intact Skin exam: Present: warm, dry, intact, normal color. Absent: rash Course Vital Signs 04/24/24 04/24/24 09:53 13:04 Temperature 98.3 F 97.9 F Pulse Rate 99 68 Respiratory 18 18 Rate Blood Pressure 123/83 120/68 O2 Sat by Pulse 99 97 Oximetry Medical Decision Making - Medical Decision Making Was pt. sent in by a medical professional or institution ([facility], [facility], urgent care, hospital, or long-term...) When possible be specific @ -No Did you speak to anyone other than the patient for history (EMS, parent, family, police, friend...)? What history was obtained from this source @ -No Did you review nursing and triage notes (agree or disagree)? Why? @ -I reviewed and agree with nursing and triage notes Were old charts reviewed (outside hosp., previous admission, EMS record, old EKG, old radiological studies, urgent care reports/EKG's, long-term records)? Report findings @ -No old charts were reviewed Differential Diagnosis (chest pain, altered mental status, abdominal pain women, abdominal pain men, vaginal bleeding, weakness, fever, dyspnea, syncope, he adache, dizziness, GI bleed, back pain, seizure, CVA, palpatations, mental health, musculoskeletal)? @ -Differential Musculoskeletal: Muscular strain, contusion, ligament sprain, fracture, arthritis, septic arthritis, bursitis, cellulitis, muscle spasm, nerve compression, DVT, arterial occlusion, herpes zoster, electrolyte abnormality, tumor.... This is not meant to be in all inclusive list EKG interpreted by me (3pts min.). @ -None X-rays interpreted by me (1pt min.). @ -Shoulder x-ray interpreted by me negative for acute osseous process. Right knee x-ray negative for acute osseous process. There is a mild knee effusion. CT interpreted by me (1pt min.). @ -None done U/S interpreted by me (1pt. min.). @ -None done What testing was considered but not performed or refused? (CT, X-rays, U/S, labs)? Why? @ -None What meds were considered but not given or refused? Why? @ -Patient refused analgesic medications. Did you discuss the management of the patient with other professionals (professionals i.e. [facility] Patton, [facility], lab, RT, psych nurse, geriatric social work professor, dollyman, teacher, press officer, special education case manager)? Give summary @ -No Was smoking cessation discussed for >3mins.? @ -No Was critical care preformed (if so, how long)? @ -No Were there social determinants of health that impacted care today? How? (Homelessness, low income, unemployed, alcoholism, drug addiction, transportation, low edu. Level, literacy, decrease access to med. care, prison, rehab)? @ -No Was there de-escalation of care discussed even if they declined (Discuss DNR or withdrawal of care, Hospice)? DNR status @ -No What co-morbidities impacted this encounter? (DM, HTN, Smoking, COPD, CAD, Cancer, CVA, ARF, Chemo, Hep., AIDS, mental health diagnosis, sleep apnea, morbid obesity)? @ -None Was patient admitted / discharged? Hospital course, mention meds given and route, prescriptions, significant lab abnormalities, going to OR and other pertinent info. @ -Discharge. 34-year-old female presented to the ER with a chief complaint of a fall. History and physical exam completed. Vitals stable. Patient in no signs of acute distress and nontoxic-appearing. Bilateral upper and lower extremities neurovascular intact. There is mild tenderness edema to right knee. Patient has full active range of motion. X-rays obtained negative for acute process. Patient refused analgesic medications. On reevaluation, patient resting company in exam room no signs of acute distress. Results discussed with patient, all questions answered. COnservative treatment options discussed. Advised close follow-up with PCP. Strict return parameters discussed. Patient discharged in stable condition. Patient verbally expressed understanding and agreement with care plan. Case discussed with ED attending, Dr. Way. Undiagnosed new problem with uncertain prognosis? @ -No Drug Therapy requiring intensive monitoring for toxicity (Heparin, Nitro, Insulin, Cardizem)? @ -No Were any procedures done? @ -No Diagnosis/symptom? @ -Knee pain Acute, or Chronic, or Acute on Chronic? @ -Acute Uncomplicated (without systemic symptoms) or Complicated (systemic symptoms)? @ -Uncomplicated Side effects of treatment? @ -No Exacerbation, Progression, or Severe Exacerbation? @ -No Poses a threat to life or bodily function? How? (Chest pain, [place], HI, pneumonia, PE, COPD, DKA, ARF, appy, cholecystitis, CVA, Diverticulitis, Homicidal, Suicidal, threat to staff... and all critical care pts) @ -No - Radiology Data Radiology results: report reviewed, image reviewed Disposition Clinical Impression: Knee contusion Disposition: HOME SELF-CARE Condition: Stable Instructions (If sedation given, give patient instructions): Knee Pain (ED) Additional Instructions: Please follow-up with Dr. Pham. You may take hljx-pye-vzdnrin Tylenol and Motrin for pain control. Continue to ice, rest, use compression and elevate. Return to the ER for any new or worsening symptoms. Is patient prescribed a controlled substance at d/c from ED?: No Referrals: Donn Pham MD [Primary Care Provider] - 1-2 days Time of Disposition: 12:53
--- NOTE | 2024-04-24 11:44 | XR ---
EXAMINATION TYPE: XR shoulder complete LT DATE OF EXAM: 04/24/2024 11:07 AM CLINICAL INDICATION:Female, 34 years old with history of fall; COMPARISON: None TECHNIQUE: XR shoulder complete LT; examined in AP, internally rotated and scapular Y projections. FINDINGS: No evidence of acute osseous pathology, joint dislocation, or soft tissue swelling. The remaining po rtions of the visualized chest are unremarkable. IMPRESSION: No acute osseous pathology.
--- NOTE | 2024-04-24 11:59 | XR ---
EXAMINATION TYPE: XR knee complete RT DATE OF EXAM: 04/24/2024 11:08 AM CLINICAL INDICATION:Female, 34 years old with history of fall; [facility] COMPARISON: None. TECHNIQUE: XR knee complete RT; examined in Frontal, lateral and oblique projections. FINDINGS: No evidence of any acute osseous pathology, soft tissue swelling, or joint effusion is no annabelle. A fabella is present. IMPRESSION: No acute osseous pathology. .
[2024-04-24 13:05] VITALS: BP 120/68; PULSE 68; TEMP 97.9
== END 2024-04-24 13:36 | disposition home or self-care (01) ==
LOC: EC 09:52
DX: S80.01XA Contusion of right knee, initial encounter (principal); F17.290 Nicotine dependence, other tobacco product, uncomplicated; Z88.2 Allergy status to sulfonamides; Z88.8 Allergy status to other drugs, medicaments and biological substances; W01.0XXA Fall on same level from slipping, tripping and stumbling without subsequent striking against object, initial encounter
CPT/HCPCS: 99283

== ENCOUNTER → 2024-06-29 | Outpatient (CLI) | payer OTHER ==
[2024-06-29] MEDS: LEUPROLIDE ACET 11.25MG SYRGKIT IM NR (12:40)
[2024-06-29 12:48] VITALS: BP 129/89; PULSE 90; RESP 16; TEMP 98.2
== END ==
LOC: PROCWHC3 12:18
PROVIDERS: ATTEND Internal Medicine
DX: C50.412 Malignant neoplasm of upper-outer quadrant of left female breast (principal)
CPT/HCPCS: 96402

== ENCOUNTER → 2024-09-03 | Outpatient (CLI) | payer OTHER ==
--- NOTE | 2024-09-03 19:07 | MR ---
EXAMINATION TYPE: MR brain wo/w con DATE OF EXAM: 09/03/2024 6:47 PM COMPARISON: 11/09/2022. CLINICAL INDICATION: Female, 34 years old with history of R29.898 LEFT ARM WEAKNESS; PHH, Headaches, left arm weakness, MS, hx breast ca. TECHNIQUE: Multi planar, multi sequence imaging was performed through the brain including: T1, T2, In version recovery, susceptibility weighted imaging and gradient echo imaging and Diffusion weighted im aging. The patient was then given intravenous contrast and multi planar, T1 fat-saturation images wer e obtained. IV Contrast: 11.5 mL Gadobutrol FINDINGS: No evidence for active demyelination, specifically no abnormal enhancement or evidence of r estricted diffusion. White matter changes without evidence of lateral ventricles compatible with hist ory of multiple sclerosis. White matter changes not significantly changed from 11/09/2022 given differe nces in slice selection and technique. The mcdowell-white junctions, ventricular system, basal cisterns a ppear unremarkable. Diffusion-weighted imaging shows no evidence of restricted diffusion to suggest acute/subacute infarct. Intracranial arterial flow voids are maintained. Midline structures show no a bnormality. . The susceptibility weighted images do not reveal any evidence for micro-hemorrhage. Aft er administration of gadolinium, no abnormal enhancement is seen. The bone marrow signal is within normal limits. Paranasal sinuses and mastoid air cells: No significant paranasal sinus disease. Visualized orbits: Orbital contents are intact. IMPRESSION: 1. No evidence of intracranial mass, acute/subacute infarct, or abnormal enhancement. 2. No evidence for active demyelination. White matter changes orthogonal to the ventricles compatible with diagnosis of multiple sclerosis. [facility], , 09/03/2024 7:05 PM
== END | disposition home or self-care (01) ==
LOC: RADMRIMAIN 17:56
PROVIDERS: ATTEND Family Medicine
DX: G35 Multiple sclerosis (principal); R29.898 Other symptoms and signs involving the musculoskeletal system; R53.1 Weakness; Z85.3 Personal history of malignant neoplasm of breast
CPT/HCPCS: 70553; A9585

== ENCOUNTER → 2025-04-11 | Outpatient (CLI) | payer OTHER ==
--- NOTE | 2025-04-11 07:40 | USB ---
Reason for Exam: Clinical finding. Patient History: Premenopausal. Breast cancer, left, age 32. Hormonal Contraceptives for 9 years from age 13 until age 21. 05/07/2022, Malignant US biopsy breast VAD LT on the left side. Maternal grandmother had breast cancer. Maternal aunt had breast cancer. Technique: Method: Whole Breast Handheld. Prior Study Comparison: 03/21/2022 Bilateral MG diagnostic mammo w CAD MELLISA - 2, [facility]. 05/07/2022 Left MG diagnostic mammo LT wo CAD., [facility]. Findings: The whole breast of the right breast, the area of palpable concern of the right breast and the axilla of the right breast were scanned. A complete US of all four quadrants of the breast and retro-areolar region were reviewed. Comparison views to opposite left breast were performed. Right breast shows asymmetrical oval density of palpable area at 12:00 position measuring 3.7 x 2.1 cm that is avascular and isoechoic to the adjacent soft tissue with a small curvilinear cystic or fluid component. Findings favored postsurgical as has been present since time of surgery. Overall Assessment: Probably benign, BI-RAD 3 Management: Diagnostic Breast Ultrasound of the right breast in 6 months. Consider precautionary short-term diagnostic right breast ultrasound follow-up due to the asymmetry. Patient to return sooner if the area is felt to enlarge on exam. Results were given to the patient verbally at the time of exam. [facility], , 04/11/2025 7:37 AM. Electronically signed and approved by: Fernando Rosa M.D.
== END | disposition home or self-care (01) ==
LOC: RADUSWWP 06:54
PROVIDERS: ATTEND Internal Medicine
DX: C50.412 Malignant neoplasm of upper-outer quadrant of left female breast (principal); Z71.3 Dietary counseling and surveillance; Z80.3 Family history of malignant neoplasm of breast; Z92.0 Personal history of contraception